=== PATIENT | female | born 1955 | race African-American/Black ===

== ENCOUNTER 2016-08-11 10:44 | Inpatient (IN) | payer OTHER ==
--- NOTE | ~2016-08-11 | IDS ---
Interim Discharge Summary [facility] [address] [place]. [address] NAME: GIOVANY MALONE : 59 STATUS : ADM IN [facility]#: [id number] AGE: 60 ADM/REG DATE : 08/11/16 MR#: [id number] REPORT SERV DATE: 08/28/16 DICTATED BY: JR. GAUTHIER WILLIAM JOHN DATE: 08/28/16 REPORT STATUS : Draft TRANSCRIBED BY: MODCecilia DATE: 08/28/16 ADMISSION DATE: 08/11/2016 DISCHARGE DATE: This discharge summary covers the time period from 08/22 through 08/28. WORKING DIAGNOSES: Include 1. Coronary artery disease, status post bypass grafting. 2. Left axillary deep vein thrombosis. 3. Acute kidney injury on chronic kidney disease with history of kidney transplant. 4. Diabetes mellitus type 2. 5. Obesity with body mass index of 33. 6. Essential hypertension. OPERATIONS, PROCEDURES, AND TREATMENTS: Include 1. Ultrasound-guided left basilic vein access with left upper extremity venogram. Ultrasound-guided access of the left axillary vein with percutaneous angioplasty of the left axillary vein, subclavian vein, and innominate vein. Attempted placement of left axillary PermCath. Placement of left upper extremity central venous catheter. Ultrasound-guided access to left internal jugular vein. Left internal jugular vein venogram. Left femoral PermCath placement done by Dr. Richardson on 08/24. 2. Daily portable chest x-rays. 3. Renal ultrasound done 08/22 which showed hydronephrosis of the transplanted kidney, slightly less than previous with abdominal fluid tracking along the nephrostomy tube course less prominent. 4. Venous Doppler ultrasound of the upper extremity done 08/26 which showed deep vein thrombosis, left axillary and proximal brachial veins. INTERIM SUMMARY: 1. The patient has been in the CVICU since I assumed care. She is being followed by Dr. Quesada of [facility]; Dr. Richardson, nephrology associates; and Dr. Velazco. The patient has been relatively hypotensive and has been on Levophed for most of the stay in the intensive care unit. She has acute kidney injury, had a temporary dialysis catheter placed in the groin after multiple attempts at placement. The patient then was converted from CRRT to hemodialysis. The viability of the grafted kidney is still in question. She is putting out some urine. The patient maintains on anti-rejection drugs, and there is consideration for a biopsy of the grafted kidney. Decision has not been made in this regard. 2. The patient was found to have a left axillary deep vein thrombosis. She was placed on heparin drip which she remains on. 3. As for the coronary artery disease, post bypass grafting, management per Thoracic Surgery. 4. As for the patient's diabetes mellitus, she was weaned off insulin drip with escalating basal prandial bolus insulin. Thoracic Surgery placed the patient back on insulin drip on 08/28. We will defer to their judgment when to re-transition off. The remainder of the patient's health problems are stable. My partner will assume care of this patient Interim Discharge Summary [address] [address] NAME: GIOVANY MALONE : 59 STATUS : ADM IN PAT#: [id number] AGE: 60 ADM/REG DATE : 08/11/16 MR#: [id number] REPORT SERV DATE: 08/28/16 DICTATED BY: JR. GAUTHIER WILLIAM JOHN DATE: 08/28/16 REPORT STATUS : Draft TRANSCRIBED BY: ABRAHAN DATE: 08/28/16 in the morning. WJF/ABRAHAN Anthony Gauthier Jr, MD / [id number]
--- NOTE | ~2016-08-11 | OP ---
Record Of Operation [facility] [address] [place]. [address] NAME: GIOVANY MALONE : 59 STATUS : ADM IN PAT#: [id number] AGE: 60 ADM/REG DATE : 08/11/16 MR#: [id number] REPORT SERV DATE: 08/24/16 DICTATED BY: MAGED RICHARDSON DATE: 08/24/16 REPORT STATUS : Draft TRANSCRIBED BY: MODL DATE: 08/24/16 DATE OF PROCEDURE: 08/23/2016 PREOPERATIVE DIAGNOSES: 1. End-stage renal disease. 2. Central venous occlusions. 3. Failed kidney transplant. 4. Phlebosclerosis. POSTOPERATIVE DIAGNOSES: 1. End-stage renal disease. 2. Central venous occlusions. 3. Failed kidney transplant. 4. Phlebosclerosis next number. PROCEDURE: 1. Ultrasound-guided access of the left basilic vein. 2. Left upper extremity venogram. 3. Ultrasound-guided access of the left axillary vein. 4. Percutaneous angioplasty of the left axillary vein, subclavian vein, and innominate vein. 5. Attempted placement of a left axillary PermCath. 6. Placement of a left upper extremity central venous catheter. 7. Ultrasound-guided access of the left internal jugular vein. 8. Left internal jugular venogram. 9. Left femoral PermCath placement. SURGEON: Maged Richardson M.D. COMPANY TANKER TRUCK DRIVER: [place]. ANESTHESIA: MAC plus local. INDICATIONS: The patient is a lady who has a known central venous stenosis or occlusion. She has renal failure with failure of her transplanted kidney. She has limited IV access as well as dialysis access options. Thus, she was consented for a PermCath placement as well as some type of longer term IV access placement. DESCRIPTION OF PROCEDURE: After informed consent was obtained, the patient was taken to the operating room and placed in the supine position on the operating table. Monitored anesthesia was administered. Her left neck and chest as well as her left upper extremity, left groin, and left thigh and right thigh were prepped and draped in the usual sterile fashion. Ultrasound-guided access was obtained of the left basilic vein. The ultrasound images were documented on the chart. I placed a micropuncture sheath and obtained a venogram of the left upper extremity that demonstrated that the left basilic vein was patent and it looked like there was a stenosis within the vein. There was collateralization to the Record Of Operation [facility] [address] [place]. [address] NAME: GIOVANY MALONE : 59 STATUS : ADM IN PAT#: [id number] AGE: 60 ADM/REG DATE : 08/11/16 MR#: [id number] REPORT SERV DATE: 08/24/16 DICTATED BY: MAGED RICHARDSON DATE: 08/24/16 REPORT STATUS : Draft TRANSCRIBED BY: ABRAHAN DATE: 08/24/16 left axillary vein. There was flow through the left subclavian and innominate veins. It looked like the SVC stent was patent but more central imaging was not well visualized. It did appear that there was some tortuosity of the left axillary and subclavian vein with several areas of stenosis within the left axillary, subclavian, and innominate veins. I placed a 6-Burkinan sheath and tried to traverse the left basilic vein stenosis. I was unsuccessful. Thus, ultrasound-guided access was obtained of the left axillary vein. The ultrasound image was documented on the chart. I passed a wire centrally. I angioplastied the left axillary vein and subclavian vein with a 6 mm balloon. I then went back and angioplastied the left axillary, subclavian, and innominate veins with an 8 mm balloon. This resolved the stenoses, as demonstrated by venogram. I then exchanged out my 6-Burkinan sheath for a 14-1/2-Burkinan peel-away sheath. I tried to pass a 50 cm PermCath over a wire into the central veins. I could not get the catheter to pass. I ballooned up aforementioned the veins again and tried to get the catheter to pass. I was unsuccessful. I placed a 16-Burkinan long sheath all the way such that the tip was in the left innominate vein. I tried to get my PermCath through this sheath but could not get it past the left innominate vein. I ended up withdrawing this sheath. I decided to instead place a central venous catheter, so that they could have IV access. I withdrew my sheath and attempted to place a 50 cm long triple-lumen PICC line as my central venous catheter. I did this so that my central venous catheter would be placed through a central vein and would be long enough to pass through any areas of stenosis. I was unable to get the catheter to pass easily. I placed a 7-Burkinan 45 cm sheath and tried to cut it so that it would be a peel-away sheath through which I could put the catheter. I had to go through a couple of sheaths to actually get something open. Ultimately, while cutting the sheath, I did make a hole inadvertently in the catheter. I therefore had to remove the sheath and exchange out my catheter over a wire for a new dual lumen PICC line. The tip terminated in the right atrium. It was sutured in place. A U-stitch was placed around the catheter also to ensure hemostasis. This portion of the case took approximately 3 hours and involved approximately 400 to 500 mL of blood loss. This was substantially more difficult than any other central line because of the complexity of her anatomy. Ultrasound-guided access was then obtained of the left internal jugular vein, so that I could place a PermCath. The wire would not pass easily. I placed a micropuncture sheath and obtained a venogram that demonstrated that the left internal jugular vein was occluded centrally. I withdrew my sheath from the left neck as well as the sheath that was in the left basilic vein. Manual pressure was used for hemostasis. I then turned my attention to the left groin. I anesthetized the left thigh and made a small skin incision. I inserted a wire through the existing Vas-Cath and removed it. I cleaned up the area and placed a peel-away sheath. I tunneled a 50 cm PermCath between the two incisions. I inserted the catheter over the wire through the peel-away sheath under fluoroscopic guidance into the IVC near the atrial caval junction. I peeled away the sheath. I confirmed that the catheter was not kinked and that it aspirated and flushed well. The left groin was closed in layers. The catheter was sutured in place, and a sterile dressing was applied. Of note, the central venous catheter was placed under fluoroscopic guidance also. The patient tolerated the procedure well without any intraprocedural complications noted. She did receive 1 unit of blood in transfusion. I informed the patient's of our intraoperative findings and the difficulty that we had. He seemed very appreciative of the efforts that we went through to see if we could preserve IV access options as well as central venous options for dialysis. Record Of Operation [facility] [address] [place]. [address] NAME: GIOVANY MALONE : 59 STATUS : ADM IN PAT#: [id number] AGE: 60 ADM/REG DATE : 08/11/16 MR#: [id number] REPORT SERV DATE: 08/24/16 DICTATED BY: MAGED RICHARDSON DATE: 08/24/16 REPORT STATUS : Draft TRANSCRIBED BY: MODCecilia DATE: 08/24/16 CITY EDITOR/ABRAHAN Maged Richardson M.D. / [id number] CC: Stefani Pena M.D.
--- NOTE | ~2016-08-11 | OP ---
Record Of Operation [facility] [address] [place]. [address] NAME: GIOVANY MALONE : 59 STATUS : DIS IN PAT#: [id number] AGE: 60 ADM/REG DATE : 08/11/16 MR#: [id number] REPORT SERV DATE: 09/17/16 DICTATED BY: MAGED RICHARDSON DATE: 09/16/16 REPORT STATUS : Draft TRANSCRIBED BY: ABRAHAN DATE: 09/16/16 DATE OF PROCEDURE: 09/14/2016 PREOPERATIVE DIAGNOSIS: Phlebosclerosis. POSTOPERATIVE DIAGNOSIS: Phlebosclerosis. PROCEDURES: 1. PermCath removal. 2. Port-A-Cath placement. SURGEON: Maged Richardson M.D. DAIRY CATTLE FARM MANAGER: Bruno Alejandra. ANESTHESIA: MAC plus local. INDICATION: The patient is a 60-year-old female who had a recent heart surgery. She had acute kidney injury following this and had a PermCath placed. Now, her renal function has improved and she is off dialysis. She needs longer term IV access, so she was consented for intervention. DESCRIPTION OF PROCEDURE: After informed consent was obtained, the patient was taken to the operating room and placed in the supine position on the operating table. Monitored anesthesia was administered. Her left upper extremity was prepped and draped in usual sterile fashion. I inserted a wire through the existing PermCath. I removed the PermCath. It was discarded. I used manual pressure at the exit site. I enlarged this exit site. I made a separate skin incision along the arm. Cautery was used to deepen the incision. I created a subcutaneous pocket. I tunneled the PermCath tubing between the incisions. I inserted the catheter into the peel-away sheath over a wire using fluoroscopic guidance. I confirmed that the tip was in the right atrium. I cut the catheter, attached it to the port, and fixated the port within the subcutaneous pocket. I aspirated and flushed the catheter. I washed out the wounds and closed them in layers. The patient tolerated the procedure well without any intraprocedural complications noted. QUALITY IMPROVEMENT ANALYST/ABRAHAN Maged Richardson M.D. / [id number] CC: Brenda Raza M.D. Record Of [address] [address] NAME: GIOVANY MALONE : 59 STATUS : DIS IN PAT#: [id number] AGE: 60 ADM/REG DATE : 08/11/16 MR#: [id number] REPORT SERV DATE: 09/17/16 DICTATED BY: MAGED RICHARDSON DATE: 09/16/16 REPORT STATUS : Draft TRANSCRIBED BY: MODL DATE: 09/16/16 Julienne Garcia M.D.
--- NOTE | ~2016-08-11 | CN ---
Consultation Report [facility] [address]. [address] NAME: GIOVANY MILTON : 59 STATUS : ADM IN PAT#: [id number] AGE: 60 ADM/REG DATE : 08/11/16 MR#: [id number] REPORT SERV DATE: 08/12/16 DICTATED BY: ALEXIS BLANCA DATE: 08/11/16 REPORT STATUS : Draft TRANSCRIBED BY: MODL DATE: 08/11/16 DATE OF CONSULTATION: 08/11/2016 HISTORY OF PRESENT ILLNESS: Ms. Milton is a 60-year-old female followed for donor renal transplant performed at [facility] in September of 2012. She presently maintains a creatinine between 1.3 and 1.8. She has had prior recurrent ESBL UTI infections and hydronephrosis of her transplant requiring percutaneous nephrostomy. This tube has been removed. She presents at this time with chest pain and shortness of breath. On 07/27/2016 she underwent cardiac cath by Dr. Dodd demonstrating multi-vessel disease which could not be stented. She was to follow up with CT Surgery in an outpatient setting but has not had an appointment made at this time. She was hypoxemic on presentation and has undergone CT scan of her chest which was noncontrasted. MEDICAL HISTORY: End-stage renal disease secondary to diabetes and hypertension. Type two diabetes mellitus, insulin dependent. donor renal transplant, [facility], 2012. Cervical stenosis with C4-C5, C5-C6 arthrodesis. Anemia, obstructive sleep apnea, subtotal parathyroidectomy, remote Vicki fundoplication, remote cholecystectomy, hyperlipidemia, remote tonsillectomy, remote ankle fracture, multivessel coronary artery disease. ALLERGIES: OXYCODONE. SOCIAL HISTORY: The patient has good family support. No use of alcohol, tobacco, or illicit drugs. MEDICATIONS: Nifedipine, omeprazole, Zofran, Ditropan, roxicodone, Paxil, prednisone, Prograf, probiotic, Ambien. FAMILY HISTORY: Positive for diabetes, hypertension. No end-stage renal disease. REVIEW OF SYSTEMS: HEENT: The patient denies any change in visual acuity, epistaxis, otic infection. PULMONARY: No shortness of breath. No cough. No hemoptysis. CARDIAC: Has had chest pain. No syncope. Intermittent lower extremity edema. GI: No nausea, vomiting, or melena. : No dysuria, gross hematuria. MUSCULOSKELETAL: Denies arthralgias except for knees and back. INTEGUMENT: No rash. No itching. Remainder of twelve point review of systems is negative. PHYSICAL EXAMINATION: Pleasant female, alert, cooperative, has Venti mask in place. VITAL SIGNS: Blood pressure 134/78, respiratory rate 20, temperature 98.2. HEENT: Eyes: No scleral icterus. Pupils equal, reactive to light. Extraocular movement Consultation Report [facility] [id number] [place]. [address] NAME: GIOVANY MILTON : 59 STATUS : ADM IN PAT#: [id number] AGE: 60 ADM/REG DATE : 08/11/16 MR#: [id number] REPORT SERV DATE: 08/12/16 DICTATED BY: ALEXIS BLANCA DATE: 08/11/16 REPORT STATUS : Draft TRANSCRIBED BY: ABRAHAN DATE: 08/11/16 intact. Nares patent. No discharge. Throat, no injection. Mucous membranes moist. NECK: No thyromegaly, masses, bruits. CHEST/LUNGS: Few late crackles posteriorly. No wheezing. No dullness to percussion. CARDIAC: Regular rate and rhythm. Questionable 1/6 systolic ejection murmur. BREASTS, PELVIC, RECTAL EXAM: Not performed. ABDOMEN: Normoactive bowel sounds. Nontender. No hepatosplenomegaly. No allograft tenderness. EXTREMITIES: No edema. No calf tenderness. DERMIS: No rash. No skin lesions. NEUROLOGIC: Cranial nerves intact. No lateralizing weakness. IMPRESSION: 1. donor renal transplant, 2012, [facility], clinically stable function. 2. Chronic kidney disease stage three, creatinine 1.73 baseline creatinine 1.3 to 1.8. 3. Shortness of breath with hypoxia, etiology under evaluation. 4. Multi-vessel coronary artery disease, not amenable to stenting and awaiting appointment with Cardiothoracic Surgery. 5. Sleep apnea, on BiPAP. 6. Type two diabetes mellitus, insulin dependent. 7. Hypertension. 8. Anemia. PLAN: 1. Labs. 2. We will follow. No change in current therapy. ANA LAURA/ABRAHAN Alexis Blanca M.D. / [id number] CC: MD Julienne Light M.D.
--- NOTE | ~2016-08-11 | OP ---
Record Of Operation [facility] [address] [place]. [address] NAME: GIOVANY MALONE : 59 STATUS : ADM IN [facility]#: [id number] AGE: 60 ADM/REG DATE : 08/11/16 MR#: [id number] REPORT SERV DATE: 09/02/16 DICTATED BY: MAGED RICHARDSON DATE: 09/02/16 REPORT STATUS : Draft TRANSCRIBED BY: MODL DATE: 09/02/16 DATE OF PROCEDURE: 09/01/2016 PREOPERATIVE DIAGNOSES: 1. End-stage renal disease. 2. Central venous stenosis. POSTOPERATIVE DIAGNOSES: 1. End-stage renal disease. 2. Central venous stenosis. PROCEDURE: PermCath removal. SURGEON: Maged Richardson M.D. AVIONICS SYSTEMS ENGINEER: None. ANESTHESIA: None. INDICATIONS: The patient is a lady who had a left common femoral vein PermCath placed. She no longer needs it as she has an axillary vein PermCath. Thus, she was consented for intervention. DESCRIPTION OF PROCEDURE: After the patient's left thigh was prepped and draped, I dissected out the cuff of the PermCath. I removed the PermCath. The patient tolerated the procedure well without any intraprocedural complications noted. TREVIN/ABRAHAN Maged Richardson M.D. / [id number] CC: Stefani Pugh M.D.
--- NOTE | ~2016-08-11 | DS ---
Discharge Summary [facility] [address] [place]. [address] NAME: GIOVANY MALONE : 59 STATUS : DIS IN PAT#: [id number] AGE: 60 ADM/REG DATE : 08/11/16 MR#: [id number] REPORT SERV DATE: 09/16/16 DICTATED BY: BRENDA RAZA DATE: 09/15/16 REPORT STATUS : Draft TRANSCRIBED BY: MODL DATE: 09/15/16 ADMISSION DATE: 08/11/2016 DISCHARGE DATE: 09/15/2016 DISCHARGE DIAGNOSES: 1. Acute hypoxic respiratory failure present on admission, recovered. The patient does not need any oxygen on discharge. 2. Status post CABG. 3. Acute kidney injury on chronic kidney disease with history of renal transplant. The patient is on immunosuppressant and she was on dialysis through this hospital stay after the surgery, now she is off dialysis, and her kidney function is improving gradually. 4. Deep vein thrombosis on the left axillary area related with vascular procedure, but the patient is remaining on anticoagulation since she still has a new Port-A-Cath on the left axillary area. 5. Diabetes mellitus. Her blood sugar is going down, so her insulin regimen is decreased. 6. Morbid obesity. BMI 48.2. 7. Anemia, acute on chronic. No evidence of bleeding, status post two units of transfusion. 8. Hypertension. LIBRARY INFORMATION TECHNICIAN: 1. Dr. Quesada. 2. Dr. Velazco. 3. Dr. Richardson. 4. [facility]. PROCEDURES: 1. Urgent CABG x4. 2. Dialysis during this hospitalization after the operation. 3. Multiple attempts of dialysis catheter insertion and finally, she did have PermCath removal on 09/14/2016 from the left axillary area and she has a new axillary Port-A- Cath insertion for blood draw for her Coumadin check. HISTORY OF PRESENT ILLNESS: This is a 60-year-old female patient, who had multiple medical problems, came to the hospital with shortness of breath. Please see dictated H and P. HOSPITAL COURSE: Please see dictated interim discharge summaries and discharge summary from Dr. Gauthier and by myself, Dr. Raza. The patient has recovered very well from the CABG. It was a very slow process including multiple times of dialysis. Overall, she had improvement and the last thing that was the reason for her to stay in the hospital longer than usual was getting this line changed and also waiting for insurance approval for her rehab status. Discharge Summary [address] [place]. [address] NAME: GIOVANY MALONE : 59 STATUS : DIS IN PAT#: [id number] AGE: 60 ADM/REG DATE : 08/11/16 MR#: [id number] REPORT SERV DATE: 09/16/16 DICTATED BY: BRENDA RAZA DATE: 09/15/16 REPORT STATUS : Draft TRANSCRIBED BY: MODCecilia DATE: 09/15/16 Dr. Richardson did remove her left axillary PermCath catheter and put a new Port-A-Cath catheter on 09/14/2016. Her insurance denied her [facility] stay and we looked for other facility and the patient has been decided [facility] Along with that, her kidney function is much improved. The patient will be discharged to [facility] for rehab. FINAL DISCHARGE MEDICATIONS: 1. Aspirin 81 mg once a day. 2. Lipitor 40 mg once at nighttime. 3. Plavix 75 mg once a day. 4. Bentyl 10 mg before meals. 5. Colace 100 once a day. 6. Preparation-H three times a day. 7. Toujeo was decreased to 20 units at nighttime. 8. Singulair 10 mg once a day. 9. Melatonin 3 mg once at nighttime as needed. 10.Bactroban for the incision site. 11.Mycostatin twice a day powder. 12.Paxil 20 mg once at nighttime. 13.Prograf dose changed to 2 mg twice a day by Nephrology from this hospitalization. 14.Coumadin is 5 mg once a day and prednisone is 20 mg once a day, which was changed by Nephrology during the hospitalization. 15.Albuterol as needed. 16.Advair twice a day. 17.Humalog is decreased to 4 units each meal. 18.Nifedipine and Phenergan are discontinued. 19.Coreg 6.25 mg twice a day. 20.Roxicodone is discontinued. 21.Imdur was discontinued. 22.Hydrocodone 7.5 as a pain medicine. 23.Torsemide 20 mg Sunday, Sunday, and Sunday. TIME SPENT: More than 30 minutes in discharge and coordination. DICTATED BY: Stefani Pugh/ABRAHAN : Brenda Raza M.D. / [id number] CC: Discharge Summary [address] [address] NAME: GIOVANY MALONE : 59 STATUS : DIS IN PAT#: [id number] AGE: 60 ADM/REG DATE : 08/11/16 MR#: [id number] REPORT SERV DATE: 09/16/16 DICTATED BY: BRENDA RAZA DATE: 09/15/16 REPORT STATUS : Draft TRANSCRIBED BY: ABRAHAN DATE: 09/15/16 Stefani Pugh M.D.
--- NOTE | ~2016-08-11 | OP ---
Record Of Operation [facility] [address] [place]. [address] NAME: GIOVANY MALONE : 59 STATUS : ADM IN PAT#: [id number] AGE: 60 ADM/REG DATE : 08/11/16 MR#: [id number] REPORT SERV DATE: 08/14/16 DICTATED BY: JUAN F VELAZCO DATE: 08/14/16 REPORT STATUS : Draft TRANSCRIBED BY: MODL DATE: 08/14/16 DATE OF PROCEDURE: 08/14/2016 PREOPERATIVE DIAGNOSES: 1. Coronary artery disease with angina. 2. Type 2 insulin-dependent diabetes mellitus. 3. Chronic kidney disease stage 3, status post cadaveric renal transplant for end-stage renal disease. 4. Superior vena caval stenosis, status post stenting. 5. Morbid obesity (BMI greater than 35). 6. Chronic drug-induced immunosuppression. 7. Chronic anemia of end-stage renal disease. 8. Hypertension. 9. Mixed hyperlipidemia. PROCEDURE PERFORMED: 1. Urgent coronary artery bypass grafting x4, left internal mammary artery placed to left anterior descending, reverse saphenous vein graft placed to the first diagonal, reverse saphenous vein graft placed to the third obtuse marginal, reverse saphenous vein graft placed to the posterior descending artery. 2. Endoscopic vein harvest, saphenous vein from right leg. 3. Transesophageal echocardiography. SURGEON: Juan F Velazco M.D. ASSISTANTS: Reilly Gunn and Perez Roman. ANESTHESIA: General with Dr. Eldridge. JET INSPECTOR: Gold Dodd M.D. PRIMARY CARE: Patricia Arana. SKI LIFT ATTENDANT: Gatito Lemus M.D. INDICATIONS: This is a 60-year-old obese female with a history of coronary artery disease in the past and has had previous stenting of the RCA in 2009. She has been having increasing episodes of chest discomfort with fatigue and dyspnea on exertion. She has remote history of cadaveric renal transplant four years ago. She has had multiple other medical problems including chronic anemia and bacteremia in the past. She is morbidly obese. She underwent a cardiac catheterization and is admitted to the hospital. We were asked to see the patient for possible urgent revascularization secondary to severe disease and ongoing symptoms. We discussed this operation with the patient and her family and after discussing operations, indication, risks, they wished to proceed. STS predicted risk of mortality is less than 2% and risk of morbidity mortality is less than 15%. This was shared with the family. Record Of Operation [facility] [address] [place]. [address] NAME: GIOVANY MALONE : 59 STATUS : ADM IN PAT#: [id number] AGE: 60 ADM/REG DATE : 08/11/16 MR#: [id number] REPORT SERV DATE: 08/14/16 DICTATED BY: JUAN F VELAZCO DATE: 08/14/16 REPORT STATUS : Draft TRANSCRIBED BY: MODCecilia DATE: 08/14/16 FINDINGS AT OPERATION: 1. Cross-clamp 57 minutes. Total pump time 70 minutes. 2. The LAD was 1.75 mm heavily diseased vessel. A 2.5 mm GOLDBERG was anastomosed to it with good runoff. 3. The first diagonal was 1.5 mm moderately diseased. A 3.5 mm RSVG was anastomosed to it with good runoff. 4. The third obtuse marginal was 1.75 mm and heavily diseased. A 3.5 mm RSVG was anastomosed to it with good runoff. 5. The posterior descending artery was 1.5 mm and mildly diseased. A 3.5 mm RSVG was anastomosed to it with fair runoff. This was a small target. 6. The vein quality was good and all grafts had good Doppler signal at the end of the case. 7. Transesophageal echocardiography demonstrated good ventricular function. There was mild aortic insufficiency and no significant mitral valve insufficiency. PATHOLOGIC SPECIMENS: None. DESCRIPTION OF PROCEDURE: The patient was brought to the operating suite. General anesthesia was induced, airway secured with an endotracheal tube. Lines were secured by Anesthesia. Reynolds catheter was placed. The patient's chest, abdomen, groin, and legs were prepped with Hibiclens and ChloraPrep and draped with Ioban sterile sheets. RADHA probe was placed by Anesthesia and examination carried out by Dr. Eldridge in my attendance as discussed above. The saphenous vein was harvested from the right leg using endoscopic technique. Briefly, the vein was cut directly down upon through a 2 cm incision and placed at the medial aspect of the right knee. Then, using VasoView trocars, the vessel was dissected from the surrounding subcutaneous tissue and fat. The side branches were then identified, ligated and divided with cautery. Once adequate length of the vein had been dissected, a counter incision was made up in the groin and in the lower leg. The vein was ligated and divided and then brought up through the knee incision. The vein quality was good and the leg was made hemostatic and closed in layers with absorbable suture. Skin was closed in subcuticular fashion. Next, a midline sternal incision was made and the sternum opened with a saw. The left hemithorax was elevated and the endothoracic fascia was incised. The side branches of the LUCHO were clipped and divided. Once the LUCHO was completely dissected, the patient was anticoagulated with heparin and chest tube placed in the left pleural cavity. The LUCHO was clipped and divided distally. There was good flow through the LUCHO and its pedicle was infiltrated with papaverine. Next, the Rubin retractor was placed in the pericardium over to the innominate vein and diaphragm, where it was T'd and tacked to the side of the chest wall. Cannulation pursestring sutures were placed and cannulation was carried out in routine manner. A retrograde cardioplegia cannula was placed in the coronary sinus. Record Of Operation [facility] [address] [facility] [place]. [address] NAME: GIOVANY MALONE : 59 STATUS : ADM IN PAT#: [id number] AGE: 60 ADM/REG DATE : 08/11/16 MR#: [id number] REPORT SERV DATE: 08/14/16 DICTATED BY: JUAN F VELAZCO DATE: 08/14/16 REPORT STATUS : Draft TRANSCRIBED BY: MODL DATE: 08/14/16 When all was in readiness, the patient was placed on cardiopulmonary bypass. Distal targets were then marked out on the heart as described in the findings. Then, the aorta was cross- clamped. Initial dose of cold blood cardioplegia solution was given in a combination of antegrade and retrograde fashion, then in a retrograde manner following proximal anastomoses. Following the first dose of cardioplegia, the heart was positioned for the PDA graft. Arteriotomy was made. The vein graft was trimmed and anastomosed to it with 7-0 Prolene. The vein graft was measured to the ascending aorta where it was divided. We then positioned the heart for the obtuse marginal graft. Another arteriotomy was made. The vein graft trimmed and anastomosed to this vessel with 7-0 Prolene. This vein graft was measured back to the left side of the ascending aorta where it was divided. Next, the proximal ends of the two vein grafts were anastomosed to 5 mm punch aortotomy with 6-0 Prolene. Another dose of cardioplegia was given. We positioned the heart for the diagonal graft. Arteriotomy was made. The vein graft trimmed and anastomosed to it with 7-0 Prolene. This vein graft was measured back to the left side of the ascending aorta where it was divided and later anastomosed to a 4.5 mm aortotomy with a running suture of 6-0 Prolene. We then positioned the heart for the LAD graft. Arteriotomy was made in the mid LAD. The LUCHO was brought out of the left chest through a notch in pericardium over the pulmonary artery. The LUCHO was opened and anastomosed to the LAD with a running suture of 8-0 Prolene. The endothoracic fascia was tacked to the epicardium. The patient was placed in Trendelenburg and a final dose of warm blood cardioplegia given in a retrograde fashion. Ventricular and atrial pacing wires were placed. Following the last dose of cardioplegia and deairing of the aorta, the aortic cross-clamp was removed. The distal and proximal anastomoses were inspected and made hemostatic. Doppler demonstrated good flow through the grafts. The heart was paced in AV sequential fashion at a rate of 80. Ventilation was begun. When the heart demonstrated good contractility, it was allowed to fill and eject. When deairing was completed, the patient was taken out of Trendelenburg. The ascending aortic vent was removed and these pursestring sutures were tied and reinforced. The patient was then weaned from cardiopulmonary bypass with low-dose inotropic support. The venous cannula was removed and these pursestring sutures tied. RADHA examination demonstrated good ventricular function with no significant valvular pathology. Protamine was administered by Anesthesia and following a period of hemodynamic stability, the aortic cannula was removed and these pursestring sutures were tied and reinforced. The patient continued to do well and chest irrigated copiously with saline. Meticulous hemostasis was obtained. Hemasorb was placed along the cut edge of the sternum. Once hemostasis was assured, the pericardium was draped over the anterior surface of the heart and tacked into position. Doppler demonstrated good flow through the grafts following protamine administration. Then, chest tubes were placed and sternum reapproximated with eight sternal wires. The clavipectoral fascia and linea alba were closed with #1 Stratafix. The subcutaneous tissue was closed with Stratafix and skin closed with subcuticular fashion. Record Of Operation [facility] [address] [place]. [address] NAME: GIOVANY MALONE : 59 STATUS : ADM IN [facility]#: [id number] AGE: 60 ADM/REG DATE : 08/11/16 MR#: [id number] REPORT SERV DATE: 08/14/16 DICTATED BY: JUAN F VELAZCO DATE: 08/14/16 REPORT STATUS : Draft TRANSCRIBED BY: ABRAHAN DATE: 08/14/16 The patient tolerated the procedure well. There were no complications. Sponge and needle counts were correct. DISPOSITION: The patient left intubated, sedated, and transported to the intensive care unit in stable condition. PATRICE/ABRAHAN Juan F Velazco M.D. / [id number] CC: MD Gatito Light M.D. Van Stephen Monroe Jr., M.D.
--- NOTE | ~2016-08-11 | OP ---
Record Of Operation [facility] [address] [place]. [address] NAME: GIOVANY MALONE : 59 STATUS : ADM IN PAT#: [id number] AGE: 60 ADM/REG DATE : 08/11/16 MR#: [id number] REPORT SERV DATE: 08/17/16 DICTATED BY: MAGED RICHARDSON DATE: 08/16/16 REPORT STATUS : Draft TRANSCRIBED BY: MODCecilia DATE: 08/16/16 DATE OF PROCEDURE: 08/16/2016 PREOPERATIVE DIAGNOSIS: Acute kidney injury. POSTOPERATIVE DIAGNOSIS: Acute kidney injury. PROCEDURE: Left femoral Vas-Cath. SURGEON: Maged Richardson M.D. ANESTHESIA: Local. INDICATIONS: The patient is a 60-year-old morbidly obese female with a history of chronic kidney disease, who has actually had kidney transplant in the past. She recently had cardiac surgery and needs continuous dialysis. I was asked to place a Vas-Cath. Risks, benefits, and alternatives were discussed with the patient. She agreed to proceed. DESCRIPTION OF PROCEDURE: After informed consent was obtained, the patient's neck was examined. The ultrasound demonstrated an occlusion of the right internal jugular vein. The left internal jugular vein looked diminutive. The left common femoral vein was patent and large. Thus, the left groin was prepped and draped in usual sterile fashion. Ultrasound- guided access was obtained of the left femoral vein. The ultrasound image was documented on the chart. I passed a wire centrally. I made a small skin incision. I dilated the tract and placed a 20-cm Vas-Cath. It was aspirated and flushed. It was sutured in place. A sterile dressing was applied. The patient tolerated the procedure well without any intraprocedural complications noted. OUTSIDE MACHINIST APPRENTICE/ABRAHAN Maged Richardson M.D. / [id number] CC: Stefani Pugh M.D.
--- NOTE | ~2016-08-11 | DS ---
Discharge Summary [facility] [address] [place]. [address] NAME: GIOVANY MALONE : 59 STATUS : ADM IN PAT#: [id number] AGE: 60 ADM/REG DATE : 08/11/16 MR#: [id number] REPORT SERV DATE: 09/11/16 DICTATED BY: JR. GAUTHIER WILLIAM JOHN DATE: 09/10/16 REPORT STATUS : Draft TRANSCRIBED BY: MODL DATE: 09/10/16 ADMISSION DATE: 08/11/2016 DISCHARGE DATE: ANTICIPATED DATE OF DISCHARGE: 09/11/2016. DISCHARGE DIAGNOSES: Include: 1. Multivessel coronary artery disease status post bypass grafting. 2. Tnzwz-fd-kthbuzt anemia. 3. Acute kidney injury with chronic kidney disease and a history of renal transplantation. 4. Diabetes mellitus type 2. 5. Hypertension. 6. Obesity with body mass index of 48.2. 7. Left axillary vein deep vein thrombosis with left arm swelling. 8. Chronic right chest pain since bypass grafting. 9. Intertrigo. OPERATIONS/PROCEDURES AND TREATMENTS: 1. Chest x-ray done 08/11/2016, which showed mild central venous congestion. 2. CT of the chest done 08/11/2016, which showed mild interstitial edema with minimal bilateral pleural effusions and bibasilar atelectasis without lung mass or adenopathy. 3. PA and lateral chest x-ray done 08/13/2016, which showed no acute cardiopulmonary process. 4. Urgent coronary artery bypass graft x4 with left internal mammary to left anterior descending, saphenous vein graft to diagonal one, saphenous vein graft to obtuse marginal, saphenous vein graft to posterior descending artery, done 08/14/[address] Velazco. 5. Left femoral Vas-Cath placement by Dr. Richardson on 08/16/2016. 6. Multiple subsequent chest x-rays. 7. Renal ultrasound done 08/22/2016, which showed hydronephrosis of the transplanted kidney, slightly less previous with fluid tracking along the nephrostomy tube, but less than previous. 8. Left upper extremity venous Doppler ultrasound done 08/26/2016, which showed deep vein thrombosis, left axillary and proximal brachial veins. 9. Venous Doppler ultrasound of the left upper extremity done 09/05/2016, which showed chronic obstructive thrombus, including occluding the distal left subclavian vein and left axillary vein. 10.Central line placement x2. 11.Placement of left axillary vein PermCath by Dr. Richardson on 09/01/2016. 12.PermCath removal by Dr. Richardson on 09/01/2016. 13.Transfusion 2 units of packed red blood cells on 09/10/2016. CONSULTING PHYSICIANS: Include Dr. Richardson of Vascular Surgery, Dr. Amor of Nephrology, Dr. Quesada of Cardiology, Dr. Velazco of Cardiovascular-Thoracic Surgery. ANTICIPATED DISCHARGE MEDICATIONS: Include: Discharge Summary [address] [address] NAME: GIOVANY MALONE : 59 STATUS : ADM IN PAT#: [id number] AGE: 60 ADM/REG DATE : 08/11/16 MR#: [id number] REPORT SERV DATE: 09/11/16 DICTATED BY: JR. GAUTHIER WILLIAM JOHN DATE: 09/10/16 REPORT STATUS : Draft TRANSCRIBED BY: ABRAHAN DATE: 09/10/16 1. Aspirin 81 mg orally daily. 2. Lipitor 40 mg orally daily. 3. Plavix 75 mg orally daily. 4. Bentyl 10 mg before meals. 5. Colace 100 mg orally twice a day. 6. Sliding scale insulin, NovoLog insulin level 2. 7. Premeal NovoLog insulin, 10 units before meals. 8. Singulair 10 mg orally daily. 9. Mupirocin to the sternal incision every eight hours. 10.Nystatin to inframammary folds twice a day. 11.Paxil 20 mg orally daily. 12.MiraLAX one packet daily. 13.Senna two tablets twice a day. 14.Prograf 2 mg orally twice a day. 15.Zinc 220 mg daily. 16.Prednisone 20 mg orally daily. 17.Albuterol every four hours while awake. 18.Dulera 200/5 two puffs twice a day. 19.Levemir insulin 30 units at bedtime. 20.Tylenol 650 mg every four hours as needed. 21.Dulcolax 10 mg suppository as needed. 22.Valium 2.5 mg every six hours as needed. 23.Flavoxate 100 mg every eight hours as needed. 24.Simethicone one to two tablets every six hours as needed. 25.Clonidine 0.1 mg every six hours as needed. 26.Albuterol 3 mL inhaled every two hours as needed. 27.Coumadin 6 mg orally daily. 28.[place] 7.5/325 every six hours as needed. HOSPITAL COURSE: The patient is a 60-year-old female with very complex medical history, who presented to the emergency room on 08/11/2016 with complaint of shortness of breath and chest discomfort. The patient reported that one month prior she developed progressive fatigue, shortness of breath, occasional nausea. She was divided by primary transitions manager, who recommended further cardiac workup, including a multigated PET myocardial stress test and left heart catheterization. The patient was found to have multivessel coronary artery disease, not amenable to stenting and was to be evaluated as an outpatient for elective coronary artery bypass graft by Dr. Vealzco. She apparently was unable to coordinate the appointment with Dr. Velazco. Continued to have worsening fatigue, shortness of breath, and chest pain and came to the emergency room. Please see Dr. Braswell's excellent admission history and physical for further details. Regarding the patient's multivessel coronary artery disease, she was seen and evaluated by Dr. Velazco and underwent coronary artery bypass graft as above. Postop course was very stormy, mostly related to acute kidney injury to a transplanted kidney as well as vascular access issues. Regarding the acute kidney injury on chronic kidney disease. On admission, the patient's Discharge Summary [address] [address] NAME: GIOVANY MALONE : 59 STATUS : ADM IN [facility]#: [id number] AGE: 60 ADM/REG DATE : 08/11/16 MR#: [id number] REPORT SERV DATE: 09/11/16 DICTATED BY: JR. GAUTHIER WILLIAM JOHN DATE: 09/10/16 REPORT STATUS : Draft TRANSCRIBED BY: MODL DATE: 09/10/16 BUN was 29 and creatinine was 1.3, which is near her baseline. After the patient's coronary artery bypass graft, her kidney function declined and she was actually needed several episodes of hemodialysis. She was followed throughout the hospital stay by Nephrology. The patient's PermCath had issues in the finding of left axillary vein thrombosis. She had multiple accesses placed and her PermCath removed. Eventually, she has an axillary dialysis port. She has been observed off dialysis for up to one week without the need for dialysis. Her kidney function is very slowly improving. Urine output is reasonable. She is making urine. Dialysis feels her renal function can continued to be monitored in rehab. The patient continues on her anti-rejection medications. Regarding the patient's thrombosis, she was on a heparin drip for an extended period of time. Eventually, she was converted to Coumadin. She became therapeutic on 09/10/2016 and her heparin drip was stopped. Regarding her diabetes mellitus type 2, the patient's sugar control has been quite excellent on the above regimen. Regarding her bamwc-mg-lazoavc anemia, she did require 2 units of packed red blood cells. There was no evidence of bleeding. Plan is for the patient to be discharged to [facility] on 09/11/2016 if okay with Nephrology. This discharge took 45 minutes for patient encounter, coordination of care, and documentation. For discharge exam and laboratory, please see daily progress note. DISCHARGE DIET: Renal diet. DISCHARGE ACTIVITY: As tolerated. DICTATED BY: Anthony Gauthier Jr, MD WJF/MODL Anthony Gauthier Jr, MD / [id number] CC: Anthony Gauthier Jr, MD Ann H. Rybolt, M.D.
--- NOTE | ~2016-08-11 | HP ---
History And Physical [facility] [address] [place]. [address] NAME: GIOVANY MALONE : 59 STATUS : ADM IN PAT#: [id number] AGE: 60 ADM/REG DATE : 08/11/16 MR#: [id number] REPORT SERV DATE: 08/12/16 DICTATED BY: LUCIUS BOOTHE DATE: 08/11/16 REPORT STATUS : Draft TRANSCRIBED BY: ABRAHAN DATE: 08/11/16 DATE OF ADMISSION: 08/11/2016 CHIEF COMPLAINT: Shortness of breath and chest discomfort. HISTORY OF PRESENT ILLNESS: This is a 60-year-old, female with medical history significant for coronary artery disease, history of renal transplant on chronic prednisone and tacrolimus, insulin treated diabetes mellitus type 2 who presented to the hospital to the emergency room with complaints of worsening shortness of breath and chest pressure. The patient reported that about a month ago she noticed that she developed progressive worsening fatigue with associated shortness of breath on exertion and occasional nausea. She was evaluated by her primary supervisor tile and mottle who at that time recommended further cardiac workup including a multi-gated PET myocardial stress test and a left cardiac catheterization. Per patient's reports, the patient said she was diagnosed with multi- vessel disease which was not amenable to coronary stenting. She reported her primary supervisor tile and mottle told that she will be evaluated for an elective coronary artery bypass surgery by Dr. Velazco as an outpatient. Since the last evaluation with her primary supervisor tile and mottle on 08/04/2016, the patient reported that she has tried multiple times to get an appointment with Dr. Velazco but has been unsuccessful. The patient also reported that she continued to have worsening generalized fatigue, shortness of breath, and chest discomfort. She denies any actual chest pain. She reports that the shortness of breath are caused both at rest and exertion. She reports associated occasional cough which is productive of scanty yellowish sputum. She denies any fever. She denies any chills. She denies history of contact with any patient with acute febrile illness or cough. She also denies any history of recent travel, prolonged immobilization or recent surgery. Although, she reported some nausea, she denies any vomiting, diarrhea, or constipation. In the ER, the patient was noted to be having significant hypoxia saturating in the mid 80s. She was placed on 4 L of oxygen, saturation improved to 93%. An ABG was done that shows a PaO2 of 59, pH 7.36, PaCO2 of 31. An assessment of hypoxia was made in the ER. The Hospitalist Service was contacted to admit the patient for further workup of definitive etiology of the patient's hypoxia. PAST MEDICAL HISTORY: 1. Coronary artery disease with multi-vessel occlusive disease. 2. Insulin treated diabetes mellitus. 3. History of renal transplant on chronic prednisone and tacrolimus. 4. Sleep apnea on BiPAP at home. 5. Morbid obesity. 6. History of Clostridium difficile colitis. 7. Hypertension. 8. History of chronic kidney disease stage 3. 9. Dyslipidemia. 10.History of recurrent urinary tract infection. 11.History of hydronephrosis with prior history of nephrostomy tube. History And Physical [address] [address] NAME: GIOVANY MALONE : 59 STATUS : ADM IN [facility]#: [id number] AGE: 60 ADM/REG DATE : 08/11/16 MR#: [id number] REPORT SERV DATE: 08/12/16 DICTATED BY: LUCIUS BOOTHE DATE: 08/11/16 REPORT STATUS : Draft TRANSCRIBED BY: ABRAHAN DATE: 08/11/16 PAST SURGICAL HISTORY: 1. History of renal transplant. 2. History of subtotal thyroidectomy. 3. History of tonsillectomy. FAMILY HISTORY: Mother of cerebrovascular accident disease, father is still alive, doing well. She endorsed history of diabetes, hypertension, and coronary artery disease in her siblings. SOCIAL HISTORY: She denies smoking cigarettes, drinking alcohol, or illicit drug use. HOME MEDICATIONS: 1. Toujeo SoloSTAR 300 units per meal insulin pen 30 units subcu at bedtime. 2. Humalog 3 meals pen injection 10 units subcu before meals. 3. Paxil 20 mg p.o. at bedtime. 4. Nifedipine 30 mg p.o. at bedtime. 5. Nifedipine 60 mg XL p.o. in the morning. 6. Tacrolimus 4 mg p.o. b.i.d. 7. Prednisone 10 mg p.o. at bedtime. 8. Singulair 10 mg p.o. at bedtime. 9. Advair 250/50 one puff inhaler b.i.d. 10.Aspirin 325 mg p.o. daily. 11.Phenazopyridine two tabs p.o. t.i.d./p.r.n. for painful urination. 12.Coreg 6.25 mg p.o. b.i.d. 13.Dicyclomine 10 mg p.o. before meal. 14.Famotidine 20 mg p.o. daily. 15.Chesaning 5/325 one tablet p.o. every 6 hours p.r.n. 16.Melatonin 3 mg p.o. at bedtime p.r.n. 17.Oxycodone 5 mg p.o. every 4 hours/p.r.n. 18.Promethazine 25 mg p.o. every 6 hours p.r.n. 19.Imdur 60 mg p.o. b.i.d. ALLERGY HISTORY: Levofloxacin reacts by rash. REVIEW OF SYSTEMS: A 12-point review of systems performed, positive finding as mentioned in the HPI. All other systems reviewed essentially negative. PHYSICAL EXAMINATION: VITAL SIGNS: Vitals on presentation; blood pressure 132/89, temperature 97.3, pulse 75 beats per minute, saturating 94% on 4 L of oxygen. GENERAL: A mild acute respiratory distress but able to speak in full sentences. Noted to use some accessory muscles of respiration. HEENT: Pupils are equal, round, and reactive. Extraocular muscle intact. Oral mucosa moist. Not pale. Anicteric. CHEST: Nontender, equally symmetric. History And Physical [address] [address] NAME: GIOVANY MALONE : 59 STATUS : ADM IN [facility]#: [id number] AGE: 60 ADM/REG DATE : 08/11/16 MR#: [id number] REPORT SERV DATE: 08/12/16 DICTATED BY: LUCIUS BOOTHE DATE: 08/11/16 REPORT STATUS : Draft TRANSCRIBED BY: ABRAHAN DATE: 08/11/16 LUNGS: Clear to auscultation bilaterally. No wheezes. No rhonchi. No crackles. CARDIOVASCULAR: Regular rate and rhythm. S1-S2. No murmurs, no rubs, no gallops. ABDOMEN: Bowel sounds normoactive. Soft, mild epigastric tenderness with no rebound, no guarding. No palpably enlarged organomegaly. EXTREMITIES: Lower extremities, no pedal edema. NEURO: Cranial nerve 2 through 12 intact. Strength 5/5 in all extremities. LABORATORY DATA: WBC 11.8, hemoglobin 10.1, hematocrit 31.0, platelets 294, INR 1.1. Chemistry; sodium 142, potassium 4.7, chloride 113, bicarb 22, BUN 29, creatinine 1.73, glucose 139, calcium 7.6, mag 1.9, phosphorus 4.5, total protein 6.9, albumin 2.9, alkaline phosphatase 145, ALT 31, AST 28, LDH 221, lipase 92, troponin less than 0.02. TSH 0.9. Free T4. 1.22. BNP 185. Chest x-ray, impression: Mild central venous congestion. CT chest without contrast impression: 1. Mild interstitial edema with minimal bilateral pleural effusion and bibasilar atelectasis. 2. No lung masses or adenopathy noted. ASSESSMENT AND PLAN: 1. Hypoxia. 2. Mild pulmonary vascular congestion. 3. Coronary artery disease, with report of occlusive multi-vessel disease not amenable to coronary stenting requiring bypass surgery. 4. History of renal transplant. Creatinine of 1.7 (last known baseline 2.1). 5. Insulin treated diabetes mellitus. 6. Hypertension. 7. Obstructive sleep apnea on BiPAP machine at home. 8. Morbid obesity. PLAN: 1. Given the patient's presentation of hypoxia with presence of pulmonary vascular congestion, I will start the patient on gentle IV diuresis, although patient does not appear to be volume overloaded on physical exam, I doubt if this has anything to do with congestive heart failure. The patient's creatinine is also 1.7 which is better than patient's last known baseline. I will obtain an echocardiogram to further evaluate the patient's EF. Per patient, the patient is known to have multivessel occlusive disease, and will need a bypass surgery. Dr. Velazco was consulted as an outpatient but yet to evaluate the patient. I will consult the patient's primary supervisor tile and mottle to further help plan the patient's need for coronary artery bypass surgery. Also at this time, the patient's PE is of less concern at this time as presentable etiology for patient's presentation as the patient is not tachycardic on exam. If the patient's hypoxia persist despite IV diuresis, I will consider doing a V/Q scan to definitively rule out PE as a possible etiology of hypoxia. Other infectious etiology like pneumonia is of less concern at this point, as the patient has no fever, no pneumonic note CT scan findings of consolidation or infiltrative changes History And Physical [address] [address] NAME: GIOVANY MALONE : 59 STATUS : ADM IN PAT#: [id number] AGE: 60 ADM/REG DATE : 08/11/16 MR#: [id number] REPORT SERV DATE: 08/12/16 DICTATED BY: LUCIUS BOOTHE DATE: 08/11/16 REPORT STATUS : Draft TRANSCRIBED BY: ABRAHAN DATE: 08/11/16 noted. Also, the patient's procalcitonin is less than 0.5, which makes bacterial pneumonia less likely. Although patient is on chronic steroid, Pneumocystis carinii pneumonia is also less likely in this patient as the patient's LDH is less than 250. At this point, I will resume patient's home medications. 2. DVT prophylaxis. Heparin. 3. Code status. Full code. JESSIEO/ABRAHAN Lucius Boothe MD / [id number] CC: MD Julienne Light M.D.
--- NOTE | ~2016-08-11 | IDS ---
Interim Discharge Summary [facility] [address] [place]. [address] NAME: GIOVANY MALONE : 59 STATUS : ADM IN PAT#: [id number] AGE: 60 ADM/REG DATE : 08/11/16 MR#: [id number] REPORT SERV DATE: 09/04/16 DICTATED BY: BRENDA RAZA DATE: 09/04/16 REPORT STATUS : Draft TRANSCRIBED BY: MODL DATE: 09/04/16 ADMISSION DATE: 08/11/2016 DISCHARGE DATE: 09/04/2016 This interim discharge summary is time period from 08/29/2016 to 09/04/2016. PROBLEM LIST: 1. Status post coronary artery bypass graft, improving and stable. 2. Acute kidney injury on chronic kidney disease with a history of kidney transplant. The patient had intermittent dialysis. The last dialysis was 08/25/2016, and had another dialysis 09/01/2016. She is on the torsemide every other day with a stable creatinine level. Outcomes Analyst's plan was watching her urine output and kidney function and possible discharge without the dialysis. 3. Diabetes type 2. 4. Obesity. 5. Hypertension. 6. Left axilla deep vein thrombosis which was identified on the last week, and when Dr. Richardson was working on the PermCath. At that time, he did some angioplasty, but had to put the PermCath in the left groin. She did have the PermCath, and she was on the heparin for the left axillary deep vein thrombosis. On 08/31/2016, she did have a PermCath change from left groin to left upper chest with Dr. Richardson, and then at that time, Dr. Richardson recommended no anticoagulation since her deep vein thrombosis was related to his vascular work, and she will need a PermCath on the left side arm, and she did have the left PermCath changed to left upper arm and did have dialysis one time on Sunday with that catheter, which was working fine. However, she developed worsening edema and pain today, so she is back on heparin drip. Vascular re-consult was done. At that point, they recommended to heparinize the patient at this point. OPERATIONS: For the last 7 days, the patient had a PermCath change with Dr. Richardson. HISTORY OF PRESENT ILLNESS: This is a 60-year-old female patient, initially came to the hospital with hypoxia with finding of heart failure. Please see dictated H and P. HOSPITAL COURSE: Please see dictated interim discharge summary done by myself and Dr. Gauthier. She has been stabilized in CVICU. The patient was able to be off the vasopressors. She was transferred up to [address] [place] [address] after she was stabilized. At that time, she was on heparin drip for newly found left axillary deep vein thrombosis when Dr. Richardson was trying to get a PermCath in the left side. The plan for the PermCath was made with [facility] and Dr. Richardson to change to left arm from the left groin and ran one more dialysis on Sunday with that new catheter. If she is stabilized okay, then initial plan was going to [facility] for rehab. She did fine with the catheter change, and she did fine with dialysis on Sunday. During the weekend, she has been stable; however, today, the patient has been complaining of chest tightness and her left arm is much more swollen with cutaneous Interim Discharge Summary [address] [address] NAME: GIOVANY MALONE : 59 STATUS : ADM IN PAT#: [id number] AGE: 60 ADM/REG DATE : 08/11/16 MR#: [id number] REPORT SERV DATE: 09/04/16 DICTATED BY: BRENDA RAZA DATE: 09/04/16 REPORT STATUS : Draft TRANSCRIBED BY: MODCecilia DATE: 09/04/16 vein distention and swelling is more significant today. Vascular Surgery was re-consulted, and the patient is put on the heparin drip at this point and did some other workup for the chest pain. X-rays an EKG and troponins are pretty much negative. Concerned for the DVT getting progressive with catheter; however, it is a very difficult situation that she will need a catheter in place for the near future. She will need a dialysis because she does not have any other access on the right side. At this point, it is not decided whether we are going to take the catheter out or change to groin area. The patient was made a decision for heparinizing at this point only. Otherwise, she has been very stable until this problem got more prominent today. [facility] is still trying to get an approval from her insurance company; however, we have not heard anything yet, and since this DVT issue has been more prominent and we need to have a little more plan on that, probably she will need anticoagulation orally. VERONICA/ABRAHAN Brenda Raza M.D. / [id number] CC: Stefani Pugh M.D.
--- NOTE | ~2016-08-11 | CN ---
Consultation Report [address] [place]. [address] NAME: GIOVANY MILTON : 59 STATUS : ADM IN PAT#: [id number] AGE: 60 ADM/REG DATE : 08/11/16 MR#: [id number] REPORT SERV DATE: 08/12/16 DICTATED BY: ERIK QUESADA DATE: 08/12/16 REPORT STATUS : Draft TRANSCRIBED BY: MODL DATE: 08/12/16 CARDIOLOGY CONSULTATION DATE OF CONSULTATION: 08/12/2016 REASON FOR CONSULTATION: Chest pain. HISTORY OF PRESENT ILLNESS: Ms. Milton is a 60-year-old female, known to our service followed by my partner, Dr. Jared Dodd, who has a cardiac history notable for recently diagnosed multivessel CAD in the context of chest discomfort and abnormal stress test. She also has chronic kidney disease with prior renal transplant on chronic immunosuppression, diabetes, obesity, hypertension, and sleep apnea. An outpatient workup recently demonstrated multivessel CAD, felt best approached with surgical revascularization. She was referred to Dr. Velazco to be seen to discuss surgery, but since discharge she has been experiencing heaviness in her chest and shortness of breath that progressed to the point where she felt that she need to be evaluated. In the ER, she was noted to have mild hypoxemia and was treated with IV Lasix. Imaging of her chest was performed with a noncontrast CT scan that demonstrated mild interstitial edema. Her hypoxemia is improved, but she continues to feel a constant heaviness in her chest. She states that these symptoms are different than what initially provoked her cardiac cath which she states was generalized fatigue. She takes a nitrate chronically, but does not use additional sublingual nitroglycerin. Her EKG was initially unremarkable, and her troponins have been negative. PAST MEDICAL HISTORY: 1. Coronary heart disease, prior stenting and recent catheterization demonstrating multivessel calcific CAD. 2. Normal LV systolic function by echocardiogram. 3. Mild aortic regurgitation. 4. Obstructive sleep apnea. 5. Obesity. 6. Chronic kidney disease stage 3. 7. History of renal transplant, on chronic immunosuppression with tacrolimus, prednisone. 8. Diabetes, insulin dependent. 9. Hypertension. MEDICATIONS: Reviewed per medical record. ALLERGIES: LEVAQUIN CAUSES A RASH. FAMILY HISTORY: Noncontributory. SOCIAL HISTORY: Former smoker. She previously worked with [employer] for 24 years, on Consultation Report [facility] [address] [place]. [address] NAME: GIOVANY MILTON : 59 STATUS : ADM IN PAT#: [id number] AGE: 60 ADM/REG DATE : 08/11/16 MR#: [id number] REPORT SERV DATE: 08/12/16 DICTATED BY: ERIK QUESADA DATE: 08/12/16 REPORT STATUS : Draft TRANSCRIBED BY: MODL DATE: 08/12/16 disability now. No alcohol or illicits. REVIEW OF SYSTEMS: Per HPI. Otherwise, negative. PHYSICAL EXAMINATION: VITAL SIGNS: Temperature is 97.1, initial blood pressure 132/89 with most recent value of 179/77, respiratory rate 20, 96% on room air, previously requiring up to 6 L to maintain sats above 95%. GENERAL: Obese, female, in no apparent distress. Speech is nonlabored. HEENT: Sclerae anicteric. Mucous membranes are moist. NECK: Supple. CARDIOVASCULAR: Regular rate and rhythm. No murmurs were present. PULMONARY: Clear to auscultation. No wheezes, no rales. ABDOMEN: Soft, nondistended, nontender. EXTREMITIES: Warm. LABS: Reviewed, notable for WBC of 11.8 with followup value of 8.4, hemoglobin of 10.1, platelets 294. Procalcitonin less than 0.05. Sodium 142, potassium 5.0, creatinine 1.7 with followup value of 2.2. Troponin less than 0.02 x2. Initial ABG 7.36/31/60 with followup value of 7.37/38/78, both on room air. EKG demonstrates sinus rhythm, rate 70. Nonspecific ST-segment abnormality. Followup EKG with no significant changes except with significant baseline artifact. Echocardiogram from 07/12/2016 demonstrates EF of 60%, mild diastolic dysfunction, normal RV size/function, calcification of aortic valve with mild associated aortic regurgitation. No aortic stenosis. Cardiac catheterization from 07/27/2016 demonstrates severe calcific three-vessel CAD and elevated LVEDP. No evidence of subclavian stenosis, patency of the LUCHO. Chest CT, noncontrast, 08/11/2016 demonstrates borderline cardiomegaly, interstitial edema with small bilateral pleural effusions, and atelectasis. No focal airspace disease. IMPRESSIONS/RECOMMENDATIONS: 1. Dyspnea with mild hypoxemia, abnormal chest CT suggestive of mild interstitial edema, improved with Lasix, now on room air. 2. Chest discomfort suggestive of angina. Troponins are negative. 3. Multivessel CAD. 4. Chronic kidney disease. 5. History of renal transplant. 6. Chronic immunosuppression. 7. Diabetes. 8. Hypertension. 9. Obstructive sleep apnea. The patient's respiratory status has improved and suspect that diastolic heart failure is playing some component. Objectively, she does not have an evidence of active ischemia despite her reported chest discomfort, but based on her degree of CAD, certainly this could Consultation Report [facility] [id number] [place]. [address] NAME: GIOVANY MILTON : 59 STATUS : ADM IN PAT#: [id number] AGE: 60 ADM/REG DATE : 08/11/16 MR#: [id number] REPORT SERV DATE: 08/12/16 DICTATED BY: ERIK QUESADA DATE: 08/12/16 REPORT STATUS : Draft TRANSCRIBED BY: ABRAHAN DATE: 08/12/16 be a true angina. Given her symptoms, I would favor an earlier evaluation by CV surgery as an inpatient. We will ask him to see her. She has multiple factors that increase her surgical risk including her chronic immunosuppression and chronic kidney disease. For now, we will titrate her antianginal therapies namely Coreg and nitrates and provide diuretics as needed. Timing of surgery to be determined. Thank you for the consultation. We will follow. LORA/ABRAHAN Erik Quesada MD / [id number] CC: MD Julienne Light M.D.
--- NOTE | ~2016-08-11 | IDS ---
Interim Discharge Summary [facility] [address] [place]. [address] NAME: GIOVANY MALONE : 59 STATUS : ADM IN [facility]#: [id number] AGE: 60 ADM/REG DATE : 08/11/16 MR#: [id number] REPORT SERV DATE: 08/21/16 DICTATED BY: BRENDA RAZA DATE: 08/21/16 REPORT STATUS : Draft TRANSCRIBED BY: MODL DATE: 08/21/16 ADMISSION DATE: 08/11/2016 DISCHARGE DATE: PROBLEM LIST: 1. Acute hypoxemic failure, improved. 2. Post CABG x4. 3. Acute kidney injury on chronic kidney disease with a history of a kidney transplant, on prednisone and Prograf treatment, currently she is on CRRT in CVICU. We are going to continue the CRRT tonight and probably converting to regular dialysis since her urine output is very poor and not responding to diuretic challenge. 4. Diabetes mellitus. 5. BMI 35. 6. Hypertension. 7. Anemia, status post one unit packed RBC transfusion done, Hemoccult was negative. CONSULTANTS: 1. Dr. Quesada. 2. Dr. Velazco. 3. Dr. Richardson. 4. [facility]. PROCEDURES: 1. Coronary artery bypass x4 performed on 08/14/2016. 2. Left femoral Vas-Cath insertion done by Dr. Richardson on 08/16/2016. 3. CRRT started on 08/16/2016 and continued for five days. We are going to convert to regular dialysis probably tomorrow. HISTORY OF PRESENT ILLNESS: This is a 60-year-old female patient, who has a history of kidney transplant, came to the hospital with chest discomfort and short of breath. Please see dictated H and P. HOSPITAL COURSE: She was admitted to hospital with hypoxia with evidence of pulmonary vascular congestion, had evaluation with cardiac studies. After evaluation with a cardiac catheterization, she was found to have severe multivessel disease and CT Surgery was consulted and had an urgent CABG surgery on 08/14/2016. After she had a CABG, she was remain [facility] however, her urine output and kidney function were worsening. CRRT started on 08/16/2016, and she has been improving through this time issue was for her with kidney disease history, her urine output is gone down a lot and it has not recovered yet. She is hemodynamically recovered. She is off the Levophed. She is going to be watched overnight with continues renal therapy and re-evaluation will be done with Dr. Linton tomorrow morning for possible the converting to dialysis. Overall, had a slow improvement, and we will continue to follow this patient for ICU recovery postop. Interim Discharge Summary [address] [address] NAME: GIOVANY MALONE : 59 STATUS : ADM IN PAT#: [id number] AGE: 60 ADM/REG DATE : 08/11/16 MR#: [id number] REPORT SERV DATE: 08/21/16 DICTATED BY: BRENDA RAZA DATE: 08/21/16 REPORT STATUS : Draft TRANSCRIBED BY: ABRAHAN DATE: 08/21/16 EKCecilia/ABRAHAN Brenda Raza M.D. / [id number] CC: Stefani Pugh M.D.
--- NOTE | ~2016-08-11 | DS ---
Discharge Summary [facility] [address] [place]. [address] NAME: GIOVANY MALONE : 59 STATUS : ADM IN PAT#: [id number] AGE: 60 ADM/REG DATE : 08/11/16 MR#: [id number] REPORT SERV DATE: 09/13/16 DICTATED BY: BRENDA RAZA DATE: 09/12/16 REPORT STATUS : Draft TRANSCRIBED BY: MODL DATE: 09/12/16 ADMISSION DATE: 08/11/2016 DISCHARGE DATE: 09/12/2016 DISCHARGE DIAGNOSES: 1. Acute hypoxic respiratory failure present on admission, improved. 2. Post CABG. 3. Acute kidney injury and chronic kidney disease with history of chronic kidney transplant. The patient is on immunosuppressant, and she was on dialysis several times during the hospitalization. Now, she is off dialysis and will be followed by [facility]. 4. Deep vein thrombosis in the left axillary area. The patient is treated with heparin, and she is in therapeutic level of Coumadin use for anticoagulation. 5. Diabetes mellitus type 2. 6. Morbid obesity. BMI of 48.2. 7. Anemia of acute on chronic, status post recent two units of transfusion. 8. Hypertension. CONSULTANTS: 1. Dr. Quesada in the [facility], is consultant. 2. Dr. Velazco. 3. Dr. Richardson. PROCEDURES: 1. Urgent coronary artery bypass grafting x4. 2. Dialysis. 3. Multiple attempts of dialysis catheter insertion. HISTORY OF PRESENT ILLNESS: This is a 60-year-old female patient, who has multiple medical problems including the history of kidney transplant, presented to emergency room with hypoxia with short of breath and respiratory failure. Please see dictated H and P. HOSPITAL COURSE: She was admitted to the hospital with respiratory failure and during the workup, she was found to have significant multivessel coronary artery disease. Subsequently, transferred to be referred to Dr. Velazco. She had a bypass surgery urgently. Please see dictated interim discharge summary done by Dr. Raza, Dr. Gauthier at multiple times, and also please see dictated discharge summary from Dr. Gauthier dated September 11. Overall, she recovered very well from the surgery. Her hospitalization was extended with renal failure with history of kidney transplant. Overall, she improved well. Most recent issue was her left axilla DVT, swelling, and anemia. She was identified to have the left axilla thrombosis when Dr. Richardson was trying to place the PermCath. She was treated with heparin during hospitalization, and she redeveloped swelling and thrombosis after heparin was discontinued. Therefore, her anticoagulation was decided to be on long-term with Discharge Summary [facility] [id number] [place]. [address] NAME: GIOVANY MALONE : 59 STATUS : ADM IN PAT#: [id number] AGE: 60 ADM/REG DATE : 08/11/16 MR#: [id number] REPORT SERV DATE: 09/13/16 DICTATED BY: BRENDA RAZA DATE: 09/12/16 REPORT STATUS : Draft TRANSCRIBED BY: MODL DATE: 09/12/16 Coumadin, and she made a therapeutic range. After she was stabilized from the renal standpoint and DVT point, she developed worsening anemia, so she was transfused two units of RBC yesterday. There is no evidence of bleeding. She was proved to go to acute rehab and also that process took longer time period. Eventually, the patient was approved to go to [facility] and other medical conditions have been stabilized, recovering from the operation very well. DISCHARGE MEDICATIONS: 1. Aspirin 81 mg once a day. 2. Lipitor 40 mg once at nighttime. 3. Plavix 75 mg once a day. 4. Bentyl 10 mg before meals. 5. Colace 100 mg twice a day. 6. NovoLog sliding scale, 10 units of NovoLog insulin before the meal, Levemir 30 units at night. 7. Singulair 10 mg once a day. 8. Mycostatin twice a day. 9. MiraLAX powder once a day. 10.Prograf 2 mg twice a day. 11.Coumadin 6 mg once a day. 12.Prednisone 20 mg once in the morning time. 13.Dulera twice a day. 14.[place] as a pain medication. DISCHARGE DISPOSITION: The patient is discharged to [facility]. TIME SPENT: More than 30 minutes in discharge coordination and patient education. DICTATED BY: Stefani Pugh/ABRAHAN Brenda Raza M.D. / [id number] CC: Stefani Pugh M.D.
--- NOTE | ~2016-08-11 | OP ---
Record Of Operation [facility] [address] [place]. [address] NAME: GIOVANY MALONE : 59 STATUS : ADM IN PAT#: [id number] AGE: 60 ADM/REG DATE : 08/11/16 MR#: [id number] REPORT SERV DATE: 09/01/16 DICTATED BY: MAGED RICHARDSON DATE: 09/01/16 REPORT STATUS : Draft TRANSCRIBED BY: MODCecilia DATE: 09/01/16 DATE OF PROCEDURE: 08/31/2016 PREOPERATIVE DIAGNOSES: 1. End-stage renal disease. 2. Central venous stenoses. POSTOPERATIVE DIAGNOSES: 1. End-stage renal disease. 2. Central venous stenoses. PROCEDURES: 1. Placement of a left axillary vein PermCath. 2. Percutaneous angioplasty of the left innominate vein and SVC with a 12-mm balloon. SURGEON: Maged Richardson M.D. LOGISTICS SUPPORT: Bruno Alejandra. ANESTHESIA: General. INDICATION: The patient is a 60-year-old female with a history of central venous stenoses and occlusions as well as end-stage renal disease. I placed a central venous catheter through her left axillary vein and had previously angioplastied central venous stenoses. Now, she returns to the operating room for a PermCath placement in the left axillary vein. I did talk to the patient and her extensively about the risks, benefits, and alternatives of intervention. They understand that this is a somewhat unconventional catheter placement. They agreed to proceed so that we could get the catheter out of her left groin. DESCRIPTION OF PROCEDURE: After informed consent was obtained, the patient was taken to the operating room and placed in the supine position on the operating table. An LMA was introduced and general anesthesia was administered. The patient's left upper extremity was prepped and draped in usual sterile fashion. I began by inserting a Spartacore wire under fluoroscopic guidance through the existing catheter. I removed the catheter and inserted a 5-Cymraes sheath. I then exchanged out my Spartacore wire with the assistance of a TrailBlazer catheter. I used a Glidewire to get into the IVC and exchanged out this wire for an Amplatz wire. I inserted a 16-Cymraes 30-cm peel-away sheath such that the tip was in the left innominate vein. I tried to place a 42 cm GlidePath catheter into the right atrium, but had some difficulty passing this. I went back and reviewed my prior imaging and noted a stenosis in the left innominate vein and SVC. I exchanged out my catheter for an 11 Cymraes sheath that I placed through the peel-away sheath. I angioplastied the left innominate vein and SVC with a 12-mm balloon. Imaging was not obtained afterwards because of the patient's renal dysfunction, but potential for her kidney dysfunction resolved. I was able to then exchange out my 11-Cymraes sheath for a 42-cm GlidePath catheter that I placed such that the tip was in the right atrium. I buried the cuff of the catheter deep Record Of Operation [address] [place]. [address] NAME: GIOVANY MALONE : 59 STATUS : ADM IN PAT#: [id number] AGE: 60 ADM/REG DATE : 08/11/16 MR#: [id number] REPORT SERV DATE: 09/01/16 DICTATED BY: MAGED RICHARDSON DATE: 09/01/16 REPORT STATUS : Draft TRANSCRIBED BY: ABRAHAN DATE: 09/01/16 within the subcutaneous tissue such that the catheter would be tunneled somewhat subcutaneously out from the arm. I did this under fluoroscopic guidance. I peeled away the sheath. I withdrew the introducer and aspirated and flushed the catheter well. I packed it with heparin. The patient tolerated the procedure well without any intraprocedural complications noted. In the end, this procedure took over three times as long as a standard PermCath placement because of the degree of difficulty. SOFTWARE APPLICATION TESTER/ABRAHAN Maged Richardson M.D. / [id number] CC: Stefani Pugh M.D. Mandeep Grewal, M.D.
[~2016-08-11 10:44] MED LIST: ADALAT CC30 MG PO; ADALAT CC60 MG PO; ADVAIR250 INH; AFEDITAB30 MG PO; AFEDITAB60 MG PO; ALLEGRA180 PO; AMB10 PO; AMOXIL500 M1 PO; ANASPAZ0.125 MG PO; ASA5GR PO; ASAB PO; ASABAYER PO; ASAEC PO; AZASAN100 MG PO; BENTYL10 PO; CARD120 PO; CEFT5 PO; COREG6 PO; CREON24000 UNT PO; CRESTOR10 PO; DITRO5 PO; ENDOCET1 TAB PO; FIBER LAXATIVE; FLUOXETINE20 MG OR; FOSRENOL1000 MG PO; HALF81 PO; HUMALOG SC; HUMALOGPEN SC; IMDUR60 PO; IMU PO; INSNOV7030 SC; LANTUS SC; LEVEMIR SC; LIBRAX PO; LOM PO; LONOX2.5 MG PO; LORT7 PO; MAGNEBIND PO; MAGOX4 PO; MELA3 PO; MEVACOR PO; MEVACOR10 MG PO; MUCINEX600 MG PO; MYFORTIC360 MG PO; NASONEX NAS; NIFEDIAC CC30 MG PO; NIFEDIAC CC60 MG PO; NIFEDICAL XL30 MG PO; NIFEDICAL XL60 MG PO; NITROII20C TOP; NITROQUICK0.4 MG SL; NORCO1 TA2 PO; NOVOLOG SC; NOVOPEN SC; OXYCOD PO; OXYCON20 PO; P20 PO; P5 PO; PAX20 PO; PCET PO; PEP20 PO; PERCOCET1 TA4 PO; PHOSLO PO; PHOSPHA 250 PO; PR25 PO; PREVALITE4 G1 PO; PRILO PO; PRILOSEC40 MG PO; PROAIR HFA INH; PROAMATINE10 MG PO; PROBIOTIC CAPSULES PO; PROBIOTIC PO; PROGRAF1 PO; PROZAC PO; PYR100B PO; PYR200 PO; REG5 PO; RENA-VITE OR; RENA-VITE PO; REST15 PO; RESTORIL30 MG PO; ROCALTROL0.5 MCG PO; SARAFEM20 M1 OR; SARAFEM20 M1 PO; SINGULAIR1 PO; TOUJEO SC; TUMS E-X750 M2 PO; TUMSROLL PO; VALCYTE PO; VICODINTAB PO; VITD PO; ZINC OTC; ZOFRAN4 PO; ZOVI200CAP PO; [UNRECOGNIZED DRUG - OTHER] IV
[2016-08-11 11:22] LABS: BASOPHILS 0.2 %; BASOPHILS ABSOLUTE 0.02 10/3/uL (0.0-0.16); EOSINOPHILS 0.8 %; EOSINOPHILS ABSOLUTE 0.09 10/3/uL (0.0-0.53); ER CBC TAT 0 Hrs 05 Mins; HEMOGLOBIN 10.1 g/dL (12.0-16.0); IMMATURE GRANULOCYTES 0.3 %; IMMATURE GRANULOCYTES ABSOLUTE 0.04 10/3/uL (0.0-0.11); LYMPHOCYTES 8.5 %; MEAN CORPUS HGB CONC 32.6 g/dL (32.0-36.0); MEAN CORPUSCULAR HEMOGLOB 28.3 pg (26.0-34.0); MEAN CORPUSCULAR VOLUME 86.8 fL (80-100); MEAN PLATELET VOLUME 10.2 fL (9.2-13.0); MONOCYTES 6.9 %; MONOCYTES ABSOLUTE 0.82 10/3/uL (0.21-1.20); NEUTROPHILS 83.3 %; NEUTROPHILS ABSOLUTE 9.85 10/3/uL (2.02-8.40); PLATELET COUNT 294 10/3/uL (150-400); RBC DISTRIBUTION WIDTH 15.7 % (12.0-16.0); RED CELL COUNT 3.57 10/6/uL (4.0-5.6); WHITE BLOOD CELLS 11.8 10/3/uL (4.5-10.5)
[2016-08-11 11:26] LABS: MANUAL DIFF NO %
[2016-08-11 11:28] LABS: INTERNATIONAL NORMAL RATI 1.1 UNITS (-); PARTIAL THROMBO TIME 32.9 SEC (22.5-37.2)
[2016-08-11 12:01] LABS: ALLENS TEST Pos; BE (BASE EXCESS) -7.2 MEQ/L (0 +/- 2.5); CARBOXYHEMOGLOBIN 2.2 % (0-3); HCO3 (ACTUAL BICARBONATE) 17.1 MEQ/L (23-27); HEMOBLOGIN CONTENT 10.6 G/DL (12-16); INSTRUMENT SERIAL # 8087; METHEMOGLOBIN 0.2 % (0-3); O2 CONTENT 12.9 VOL% (18-24); OPERATOR ID 14335; PCO2 (CO2 TENSION) 31 MMHG (35-45); PO2 (O2 TENSION) 60 MMHG (79-93); SAMPLE Arterial; pH 7.36 (7.37-7.43)
[2016-08-11 12:34] LABS: BUN (BLOOD UREA NITROGEN) 29 MG/DL (6-23); CALCIUM, SERUM 7.6 MG/DL (8.5-10.4); CHEST PAIN PROFILE TAT 0 Hrs 24 Mins; CHLORIDE, SERUM 113 MMOL/L (96-112); CO2 (CARBON DIOXIDE) 22 MMOL/L (24-34); CREATININE 1.73 MG/DL (0.55-1.02); GFR AFRICAN AMERICAN 37 ML/MIN (>=60); GFR NON AFRICAN AMERICAN 32 ML/MIN (>=60); GLUCOSE, SERUM 139 MG/DL (60-99); POTASSIUM, SERUM 4.7 MMOL/L (3.5-5.3); SODIUM, SERUM 142 MMOL/L (135-148); TROPONIN I <0.02 NG/ML (<0.05)
[2016-08-11 14:18] LABS: PROCALCITONIN 0.07 ng/mL (<0.5)
[2016-08-11 17:21] LABS: ALBUMIN 2.9 G/DL (3.5-5.0); ALKALINE PHOSPHATASE 145 U/L (45-117); DIRECT BILIRUBIN < 0.1 MG/DL (0.0-0.4); FREE T4 1.22 NG/DL (0.76-1.46); INDIRECT BILIRUBIN(NOT ORDER) 0.1 MG/DL (0.1-0.9); PHOSPHORUS, SERUM 4.5 MG/DL (2.5-4.5); SGOT(AST) 28 U/L (5-40); SGPT(ALT) 31 U/L (5-65); TOTAL BILIRUBIN 0.2 MG/DL (0-1.2); TOTAL PROTEIN 6.9 G/DL (6.0-8.5); ULTRASENSITIVE TSH 0.965 MCIU/ML (0.358-3.740)
[2016-08-12 05:51] LABS: HEMATOCRIT 30.7 % (36.0-48.0); HEMOGLOBIN 9.9 g/dL (12.0-16.0); MANUAL DIFF YES %; MEAN CORPUS HGB CONC 32.2 g/dL (32.0-36.0); MEAN CORPUSCULAR HEMOGLOB 28.5 pg (26.0-34.0); MEAN CORPUSCULAR VOLUME 88.5 fL (80-100); MEAN PLATELET VOLUME 10.4 fL (9.2-13.0); PLATELET COUNT 295 10/3/uL (150-400); RBC DISTRIBUTION WIDTH 15.4 % (12.0-16.0); RED CELL COUNT 3.47 10/6/uL (4.0-5.6); WHITE BLOOD CELLS 8.4 10/3/uL (4.5-10.5)
[2016-08-12 06:11] LABS: ALBUMIN 2.8 G/DL (3.5-5.0); ALKALINE PHOSPHATASE 146 U/L (45-117); CALCIUM, SERUM 7.5 MG/DL (8.5-10.4); CHLORIDE, SERUM 113 MMOL/L (96-112); CO2 (CARBON DIOXIDE) 21 MMOL/L (24-34); GFR AFRICAN AMERICAN 28 ML/MIN (>=60); GFR NON AFRICAN AMERICAN 24 ML/MIN (>=60); GLUCOSE, SERUM 117 MG/DL (60-99); PHOSPHORUS, SERUM 4.3 MG/DL (2.5-4.5); SGOT(AST) 15 U/L (5-40); SGPT(ALT) 25 U/L (5-65); SODIUM, SERUM 142 MMOL/L (135-148); TOTAL BILIRUBIN 0.2 MG/DL (0-1.2)
[2016-08-12 06:13] LABS: A/G RATIO 0.7 (0.7-1.9); BUN (BLOOD UREA NITROGEN) 33 MG/DL (6-23); GLOBULIN 4.2 G/DL (2.5-4.1); ULTRASENSITIVE TSH 0.604 MCIU/ML (0.358-3.740)
[2016-08-12 06:14] LABS: EOSINOPHILS 1 %; EOSINOPHILS ABSOLUTE (CALC) 0.08 10/3/uL (0.0-0.53); IMMATURE GRANS ABSOLUTE (CALC) 0.08 10/3/uL (0.0-0.11); LYMPHOCYTES 20 %; LYMPHOCYTES ABSOLUTE (CALC) 1.68 10/3/uL (0.67-4.30); METAMYELOCYTES 1 %; MONOCYTES 8 %; MONOCYTES ABSOLUTE (CALC) 0.67 10/3/uL (0.21-1.20); NEUTROPHILS ABSOLUTE (CALC) 5.88 10/3/uL (2.02-8.40); PLATELET ESTIMATE ADQ (ADEQUATE); RBC MORPHOLOGY NORM (NORMAL); SEGMENTED NEUTROPHIL (0) 70 %; TOTAL NUCLEATED CELLS 100
[2016-08-12 06:42] LABS: PROCALCITONIN <0.05 ng/mL (<0.5)
[2016-08-12 09:51] LABS: ALLENS TEST Pos; BE (BASE EXCESS) -3.2 MEQ/L (0 +/- 2.5); CARBOXYHEMOGLOBIN 0.4 % (0-3); DEVICE ROOM AIR; HCO3 (ACTUAL BICARBONATE) 21.8 MEQ/L (23-27); HEMOBLOGIN CONTENT 10.9 G/DL (12-16); INSTRUMENT SERIAL # 35151; METHEMOGLOBIN 0.3 % (0-3); O2 CONTENT 14.5 VOL% (18-24); OPERATOR ID 13715; PCO2 (CO2 TENSION) 38 MMHG (35-45); PO2 (O2 TENSION) 78 MMHG (79-93); SAMPLE Arterial; pH 7.37 (7.37-7.43)
[2016-08-12 10:31] LABS: ASCORBIC ACID (UR NOT ORDER) NEG (NEG); BILIRUBIN, URINE NEGATIVE (NEG); KETONE, URINE NEGATIVE (NEG); LEUKOCYTE ESTERASE(NOT OR NEG (NEG); WBC (NOT ORDERED) (RFLEX) 3 (0-5)
[2016-08-13 06:33] LABS: BASOPHILS 0.1 %; BASOPHILS ABSOLUTE 0.01 10/3/uL (0.0-0.16); EOSINOPHILS 0.5 %; EOSINOPHILS ABSOLUTE 0.06 10/3/uL (0.0-0.53); HEMATOCRIT 31.3 % (36.0-48.0); IMMATURE GRANULOCYTES 0.6 %; IMMATURE GRANULOCYTES ABSOLUTE 0.07 10/3/uL (0.0-0.11); LYMPHOCYTES 12.1 %; LYMPHOCYTES ABSOLUTE 1.44 10/3/uL (0.67-4.30); MEAN CORPUS HGB CONC 31.9 g/dL (32.0-36.0); MEAN CORPUSCULAR HEMOGLOB 28.2 pg (26.0-34.0); MEAN CORPUSCULAR VOLUME 88.4 fL (80-100); MEAN PLATELET VOLUME 10.3 fL (9.2-13.0); MONOCYTES 8.7 %; MONOCYTES ABSOLUTE 1.04 10/3/uL (0.21-1.20); NEUTROPHILS ABSOLUTE 9.33 10/3/uL (2.02-8.40); PLATELET COUNT 279 10/3/uL (150-400); RBC DISTRIBUTION WIDTH 15.2 % (12.0-16.0); RED CELL COUNT 3.54 10/6/uL (4.0-5.6)
[2016-08-13 06:37] LABS: MANUAL DIFF NO %
[2016-08-13 06:46] LABS: ALBUMIN 2.9 G/DL (3.5-5.0); CALCIUM, SERUM 7.5 MG/DL (8.5-10.4); CHLORIDE, SERUM 113 MMOL/L (96-112); CO2 (CARBON DIOXIDE) 21 MMOL/L (24-34); CREATININE 2.14 MG/DL (0.55-1.02); GFR AFRICAN AMERICAN 29 ML/MIN (>=60); GFR NON AFRICAN AMERICAN 25 ML/MIN (>=60); GLUCOSE, SERUM 98 MG/DL (60-99); PHOSPHORUS, SERUM 3.6 MG/DL (2.5-4.5); POTASSIUM, SERUM 4.9 MMOL/L (3.5-5.3); SODIUM, SERUM 141 MMOL/L (135-148)
[2016-08-13 06:47] LABS: BUN (BLOOD UREA NITROGEN) 41 MG/DL (6-23)
[2016-08-14 06:06] LABS: BASOPHILS 0.2 %; BASOPHILS ABSOLUTE 0.02 10/3/uL (0.0-0.16); EOSINOPHILS 0.3 %; EOSINOPHILS ABSOLUTE 0.04 10/3/uL (0.0-0.53); HEMATOCRIT 30.1 % (36.0-48.0); HEMOGLOBIN 9.6 g/dL (12.0-16.0); IMMATURE GRANULOCYTES 0.6 %; IMMATURE GRANULOCYTES ABSOLUTE 0.07 10/3/uL (0.0-0.11); LYMPHOCYTES 13.2 %; LYMPHOCYTES ABSOLUTE 1.65 10/3/uL (0.67-4.30); MEAN CORPUS HGB CONC 31.9 g/dL (32.0-36.0); MEAN CORPUSCULAR HEMOGLOB 28.2 pg (26.0-34.0); MEAN CORPUSCULAR VOLUME 88.5 fL (80-100); MEAN PLATELET VOLUME 10.3 fL (9.2-13.0); MONOCYTES 6.4 %; NEUTROPHILS 79.3 %; NEUTROPHILS ABSOLUTE 9.91 10/3/uL (2.02-8.40); PLATELET COUNT 275 10/3/uL (150-400); RBC DISTRIBUTION WIDTH 15.3 % (12.0-16.0); WHITE BLOOD CELLS 12.5 10/3/uL (4.5-10.5)
[2016-08-14 06:07] LABS: MANUAL DIFF NO %
[2016-08-14 06:26] LABS: A/G RATIO 0.8 (0.7-1.9); ALBUMIN 3.1 G/DL (3.5-5.0); ALKALINE PHOSPHATASE 135 U/L (45-117); CALCIUM, SERUM 7.8 MG/DL (8.5-10.4); CHLORIDE, SERUM 109 MMOL/L (96-112); CO2 (CARBON DIOXIDE) 24 MMOL/L (24-34); CREATININE 2.11 MG/DL (0.55-1.02); GFR AFRICAN AMERICAN 29 ML/MIN (>=60); GFR NON AFRICAN AMERICAN 25 ML/MIN (>=60); GLOBULIN 3.9 G/DL (2.5-4.1); PHOSPHORUS, SERUM 3.6 MG/DL (2.5-4.5); SGOT(AST) 12 U/L (5-40); SGPT(ALT) 21 U/L (5-65); SODIUM, SERUM 139 MMOL/L (135-148); TOTAL BILIRUBIN 0.3 MG/DL (0-1.2)
[2016-08-14 06:27] LABS: BUN (BLOOD UREA NITROGEN) 48 MG/DL (6-23); GLUCOSE, SERUM 137 MG/DL (60-99)
[2016-08-14 11:40] LABS: TEG - RATE 4.9 MIN (5.0-10.0)
[2016-08-14 11:41] LABS: TEG - ANGLE 76.2 DEG (53-72); TEG - COAGULATION INDEX 3.3 (-3 TO 3); TEG - LY30 0.9 % (0-8); TEG - MAXIMUM AMPLITUDE 72.9 MM (50-70)
[2016-08-14 14:29] LABS: BE (BASE EXCESS) -4.3 MEQ/L (0 +/- 2.5); CARBOXYHEMOGLOBIN 0.1 % (0-3); HCO3 (ACTUAL BICARBONATE) 20.3 MEQ/L (23-27); INSTRUMENT SERIAL # 11843; METHEMOGLOBIN 0.3 % (0-3); PCO2 (CO2 TENSION) 35 MMHG (35-45); PO2 (O2 TENSION) 184 MMHG (79-93); pH 7.38 (7.37-7.43)
[2016-08-14 14:30] LABS: HEMOBLOGIN CONTENT 9.6 G/DL (12-16); MODE SIMV; O2 CONTENT 13.7 VOL% (18-24); SAMPLE Arterial; TIDAL VOLUME 700 ML
[2016-08-14 14:40] LABS: HEMATOCRIT 27.2 % (36.0-48.0); HEMOGLOBIN 8.8 g/dL (12.0-16.0)
[2016-08-14 14:44] LABS: PLATELET COUNT 168 10/3/uL (150-400)
[2016-08-14 14:47] LABS: INTERNATIONAL NORMAL RATI 1.4 UNITS (-); PARTIAL THROMBO TIME 37.9 SEC (22.5-37.2)
[2016-08-14 14:49] LABS: PROTIME (NOT ORD) 17.2 SEC (12.0-14.5)
[2016-08-14 17:41] LABS: BUN (BLOOD UREA NITROGEN) 42 MG/DL (6-23); CALCIUM, SERUM 7.5 MG/DL (8.5-10.4); CHLORIDE, SERUM 112 MMOL/L (96-112); CO2 (CARBON DIOXIDE) 20 MMOL/L (24-34); CREATININE 2.08 MG/DL (0.55-1.02); GFR AFRICAN AMERICAN 30 ML/MIN (>=60); GFR NON AFRICAN AMERICAN 26 ML/MIN (>=60); GLUCOSE, SERUM 127 MG/DL (60-99); POTASSIUM, SERUM 4.7 MMOL/L (3.5-5.3); SODIUM, SERUM 142 MMOL/L (135-148)
[2016-08-14 20:43] LABS: HEMATOCRIT 27.1 % (36.0-48.0); HEMOGLOBIN 8.8 g/dL (12.0-16.0)
[2016-08-14 20:59] LABS: BUN (BLOOD UREA NITROGEN) 42 MG/DL (6-23); CALCIUM, SERUM 7.2 MG/DL (8.5-10.4); CHLORIDE, SERUM 115 MMOL/L (96-112); CO2 (CARBON DIOXIDE) 24 MMOL/L (24-34); CREATININE 2.05 MG/DL (0.55-1.02); GFR AFRICAN AMERICAN 30 ML/MIN (>=60); GFR NON AFRICAN AMERICAN 26 ML/MIN (>=60); SODIUM, SERUM 146 MMOL/L (135-148)
[2016-08-14 21:00] LABS: GLUCOSE, SERUM 86 MG/DL (60-99)
[2016-08-15 03:51] LABS: HEMATOCRIT 28.3 % (36.0-48.0); HEMOGLOBIN 8.9 g/dL (12.0-16.0); MEAN CORPUS HGB CONC 31.4 g/dL (32.0-36.0); MEAN CORPUSCULAR HEMOGLOB 27.9 pg (26.0-34.0); MEAN CORPUSCULAR VOLUME 88.7 fL (80-100); MEAN PLATELET VOLUME 10.6 fL (9.2-13.0); PLATELET COUNT 185 10/3/uL (150-400); RBC DISTRIBUTION WIDTH 15.1 % (12.0-16.0); RED CELL COUNT 3.19 10/6/uL (4.0-5.6)
[2016-08-15 04:07] LABS: MANUAL DIFF YES %; WHITE BLOOD CELLS 19.5 10/3/uL (4.5-10.5)
[2016-08-15 04:10] LABS: BUN (BLOOD UREA NITROGEN) 42 MG/DL (6-23); CALCIUM, SERUM 7.2 MG/DL (8.5-10.4); CHLORIDE, SERUM 115 MMOL/L (96-112); CO2 (CARBON DIOXIDE) 20 MMOL/L (24-34); CREATININE 2.03 MG/DL (0.55-1.02); GFR AFRICAN AMERICAN 31 ML/MIN (>=60); GFR NON AFRICAN AMERICAN 26 ML/MIN (>=60); GLUCOSE, SERUM 94 MG/DL (60-99); POTASSIUM, SERUM 5.3 MMOL/L (3.5-5.3); SODIUM, SERUM 147 MMOL/L (135-148)
[2016-08-15 04:27] LABS: PHOSPHORUS, SERUM 4.9 MG/DL (2.5-4.5)
[2016-08-15 04:36] LABS: CARBOXYHEMOGLOBIN 0.1 % (0-3); DEVICE VM; HCO3 (ACTUAL BICARBONATE) 18.1 MEQ/L (23-27); HEMOBLOGIN CONTENT 9.9 G/DL (12-16); INSTRUMENT SERIAL # 11843; METHEMOGLOBIN 0.5 % (0-3); O2 CONTENT 13.3 VOL% (18-24); OPERATOR ID 16469; PCO2 (CO2 TENSION) 40 MMHG (35-45); PO2 (O2 TENSION) 86 MMHG (79-93); SAMPLE Arterial; pH 7.28 (7.37-7.43)
[2016-08-15 07:09] LABS: BAND NEUTROPHILS 7 %; LYMPHOCYTES 6 %; LYMPHOCYTES ABSOLUTE (CALC) 1.17 10/3/uL (0.67-4.30); MONOCYTES 4 %; MONOCYTES ABSOLUTE (CALC) 0.78 10/3/uL (0.21-1.20); NEUTROPHILS ABSOLUTE (CALC) 17.55 10/3/uL (2.02-8.40); PLATELET ESTIMATE ADQ (ADEQUATE); RBC MORPHOLOGY NORM (NORMAL); SEGMENTED NEUTROPHIL (0) 83 %; TOTAL NUCLEATED CELLS 100; TOXIC GRANULATION 1+
[2016-08-15 16:35] LABS: HEMATOCRIT 26.3 % (36.0-48.0); HEMOGLOBIN 8.4 g/dL (12.0-16.0)
[2016-08-15 16:46] LABS: POTASSIUM, SERUM 5.5 MMOL/L (3.5-5.3)
[2016-08-16 03:36] LABS: HEMATOCRIT 26.2 % (36.0-48.0); HEMOGLOBIN 8.2 g/dL (12.0-16.0); MANUAL DIFF YES %; MEAN CORPUS HGB CONC 31.3 g/dL (32.0-36.0); MEAN CORPUSCULAR HEMOGLOB 28.2 pg (26.0-34.0); MEAN PLATELET VOLUME 11.1 fL (9.2-13.0); PLATELET COUNT 207 10/3/uL (150-400); RBC DISTRIBUTION WIDTH 15.7 % (12.0-16.0); RED CELL COUNT 2.91 10/6/uL (4.0-5.6); WHITE BLOOD CELLS 23.9 10/3/uL (4.5-10.5)
[2016-08-16 03:49] LABS: CALCIUM, SERUM 7.1 MG/DL (8.5-10.4); CHLORIDE, SERUM 108 MMOL/L (96-112); CO2 (CARBON DIOXIDE) 18 MMOL/L (24-34); POTASSIUM, SERUM 5.5 MMOL/L (3.5-5.3)
[2016-08-16 03:51] LABS: BUN (BLOOD UREA NITROGEN) 49 MG/DL (6-23); CREATININE 2.75 MG/DL (0.55-1.02); GFR AFRICAN AMERICAN 21 ML/MIN (>=60); GFR NON AFRICAN AMERICAN 18 ML/MIN (>=60); GLUCOSE, SERUM 188 MG/DL (60-99); SODIUM, SERUM 140 MMOL/L (135-148)
[2016-08-16 04:00] LABS: LYMPHOCYTES 7 %; LYMPHOCYTES ABSOLUTE (CALC) 1.67 10/3/uL (0.67-4.30); MONOCYTES 8 %; MONOCYTES ABSOLUTE (CALC) 1.91 10/3/uL (0.21-1.20); NEUTROPHILS ABSOLUTE (CALC) 20.32 10/3/uL (2.02-8.40); PLATELET ESTIMATE ADQ (ADEQUATE); RBC MORPHOLOGY NORM (NORMAL); SEGMENTED NEUTROPHIL (0) 85 %; TOTAL NUCLEATED CELLS 100
[2016-08-16 15:30] LABS: BASOPHILS 0 %; BASOPHILS ABSOLUTE 0.01 10/3/uL (0.0-0.16); EOSINOPHILS 0 %; HEMATOCRIT 24.2 % (36.0-48.0); HEMOGLOBIN 7.8 g/dL (12.0-16.0); IMMATURE GRANULOCYTES 0.6 %; IMMATURE GRANULOCYTES ABSOLUTE 0.13 10/3/uL (0.0-0.11); LYMPHOCYTES 6.3 %; LYMPHOCYTES ABSOLUTE 1.28 10/3/uL (0.67-4.30); MEAN CORPUS HGB CONC 32.2 g/dL (32.0-36.0); MEAN CORPUSCULAR HEMOGLOB 28.4 pg (26.0-34.0); MEAN PLATELET VOLUME 10.9 fL (9.2-13.0); MONOCYTES 8.4 %; MONOCYTES ABSOLUTE 1.69 10/3/uL (0.21-1.20); NEUTROPHILS 84.7 %; NEUTROPHILS ABSOLUTE 17.12 10/3/uL (2.02-8.40); PLATELET COUNT 182 10/3/uL (150-400); RBC DISTRIBUTION WIDTH 15.8 % (12.0-16.0); RED CELL COUNT 2.75 10/6/uL (4.0-5.6); WHITE BLOOD CELLS 20.2 10/3/uL (4.5-10.5)
[2016-08-16 15:31] LABS: MANUAL DIFF NO %
[2016-08-16 16:02] LABS: ALBUMIN 3.2 G/DL (3.5-5.0); CHLORIDE, SERUM 106 MMOL/L (96-112); CO2 (CARBON DIOXIDE) 20 MMOL/L (24-34); CREATININE 2.78 MG/DL (0.55-1.02); GFR AFRICAN AMERICAN 21 ML/MIN (>=60); GFR NON AFRICAN AMERICAN 18 ML/MIN (>=60); GLUCOSE, SERUM 219 MG/DL (60-99); POTASSIUM, SERUM 4.8 MMOL/L (3.5-5.3); SGOT(AST) 26 U/L (5-40); SGPT(ALT) 32 U/L (5-65); SODIUM, SERUM 140 MMOL/L (135-148); TOTAL BILIRUBIN 0.3 MG/DL (0-1.2)
[2016-08-16 16:04] LABS: A/G RATIO 1.1 (0.7-1.9); ALKALINE PHOSPHATASE 121 U/L (45-117); BUN (BLOOD UREA NITROGEN) 53 MG/DL (6-23); CALCIUM, SERUM 6.7 MG/DL (8.5-10.4); GLOBULIN 2.8 G/DL (2.5-4.1)
[2016-08-16 16:36] LABS: CARBOXYHEMOGLOBIN 0.7 % (0-3); DEVICE NC; HCO3 (ACTUAL BICARBONATE) 17.9 MEQ/L (23-27); HEMOBLOGIN CONTENT 8.7 G/DL (12-16); INSTRUMENT SERIAL # 11843; METHEMOGLOBIN 0.4 % (0-3); O2 CONTENT 10.8 VOL% (18-24); OPERATOR ID 35188; PCO2 (CO2 TENSION) 34 MMHG (35-45); PO2 (O2 TENSION) 58 MMHG (79-93); SAMPLE Arterial; pH 7.35 (7.37-7.43)
[2016-08-16 21:30] LABS: HEMATOCRIT 24.2 % (36.0-48.0); HEMOGLOBIN 7.8 g/dL (12.0-16.0); MEAN CORPUS HGB CONC 32.2 g/dL (32.0-36.0); MEAN CORPUSCULAR HEMOGLOB 28.1 pg (26.0-34.0); MEAN CORPUSCULAR VOLUME 87.1 fL (80-100); MEAN PLATELET VOLUME 10.8 fL (9.2-13.0); NUCLEATED RED BLOOD CELLS 0.4 /100WBC (0-0); PLATELET COUNT 185 10/3/uL (150-400); RBC DISTRIBUTION WIDTH 15.5 % (12.0-16.0); RED CELL COUNT 2.78 10/6/uL (4.0-5.6)
[2016-08-16 21:31] LABS: MANUAL DIFF YES %; WHITE BLOOD CELLS 25.8 10/3/uL (4.5-10.5)
[2016-08-16 21:36] LABS: BUN (BLOOD UREA NITROGEN) 30 MG/DL (6-23); CALCIUM, SERUM 6.1 MG/DL (8.5-10.4); CHLORIDE, SERUM 104 MMOL/L (96-112); CO2 (CARBON DIOXIDE) 25 MMOL/L (24-34); CREATININE 1.75 MG/DL (0.55-1.02); GFR AFRICAN AMERICAN 37 ML/MIN (>=60); GFR NON AFRICAN AMERICAN 32 ML/MIN (>=60); GLUCOSE, SERUM 118 MG/DL (60-99); PHOSPHORUS, SERUM 2.5 MG/DL (2.5-4.5); POTASSIUM, SERUM 4.1 MMOL/L (3.5-5.3); SODIUM, SERUM 140 MMOL/L (135-148)
[2016-08-16 21:41] LABS: BAND NEUTROPHILS 2 %; LYMPHOCYTES 2 %; LYMPHOCYTES ABSOLUTE (CALC) 0.52 10/3/uL (0.67-4.30); MONOCYTES 7 %; MONOCYTES ABSOLUTE (CALC) 1.81 10/3/uL (0.21-1.20); NEUTROPHILS ABSOLUTE (CALC) 23.48 10/3/uL (2.02-8.40); PLATELET ESTIMATE ADQ (ADEQUATE); RBC MORPHOLOGY NORM (NORMAL); SEGMENTED NEUTROPHIL (0) 89 %; TOTAL NUCLEATED CELLS 100
[2016-08-17 03:59] LABS: HEMATOCRIT 23.5 % (36.0-48.0); HEMOGLOBIN 7.8 g/dL (12.0-16.0); MEAN CORPUS HGB CONC 33.2 g/dL (32.0-36.0); MEAN CORPUSCULAR HEMOGLOB 28.5 pg (26.0-34.0); MEAN CORPUSCULAR VOLUME 85.8 fL (80-100); NUCLEATED RED BLOOD CELLS 0.8 /100WBC (0-0); PLATELET COUNT 182 10/3/uL (150-400); RBC DISTRIBUTION WIDTH 15.3 % (12.0-16.0); RED CELL COUNT 2.74 10/6/uL (4.0-5.6); WHITE BLOOD CELLS 24.5 10/3/uL (4.5-10.5)
[2016-08-17 04:00] LABS: MANUAL DIFF YES %
[2016-08-17 04:03] LABS: BUN (BLOOD UREA NITROGEN) 20 MG/DL (6-23); CALCIUM, SERUM 6.4 MG/DL (8.5-10.4); CHLORIDE, SERUM 104 MMOL/L (96-112); CO2 (CARBON DIOXIDE) 25 MMOL/L (24-34); CREATININE 1.32 MG/DL (0.55-1.02); GFR AFRICAN AMERICAN 51 ML/MIN (>=60); GFR NON AFRICAN AMERICAN 44 ML/MIN (>=60); GLUCOSE, SERUM 97 MG/DL (60-99); POTASSIUM, SERUM 3.8 MMOL/L (3.5-5.3); SODIUM, SERUM 141 MMOL/L (135-148)
[2016-08-17 04:11] LABS: BAND NEUTROPHILS 6 %; LYMPHOCYTES 7 %; LYMPHOCYTES ABSOLUTE (CALC) 1.72 10/3/uL (0.67-4.30); MONOCYTES 9 %; MONOCYTES ABSOLUTE (CALC) 2.21 10/3/uL (0.21-1.20); NEUTROPHILS ABSOLUTE (CALC) 20.58 10/3/uL (2.02-8.40); PLATELET ESTIMATE ADQ (ADEQUATE); RBC MORPHOLOGY NORM (NORMAL); SEGMENTED NEUTROPHIL (0) 78 %; TOTAL NUCLEATED CELLS 100
[2016-08-17 04:44] LABS: PHOSPHORUS, SERUM 2.3 MG/DL (2.5-4.5)
[2016-08-17 08:02] LABS: PROCALCITONIN 0.32 ng/mL (<0.5)
[2016-08-17 10:09] LABS: BASOPHILS 0 %; BASOPHILS ABSOLUTE 0.01 10/3/uL (0.0-0.16); EOSINOPHILS 0 %; HEMATOCRIT 21.8 % (36.0-48.0); IMMATURE GRANULOCYTES 0.7 %; IMMATURE GRANULOCYTES ABSOLUTE 0.14 10/3/uL (0.0-0.11); LYMPHOCYTES 7.3 %; LYMPHOCYTES ABSOLUTE 1.54 10/3/uL (0.67-4.30); MEAN CORPUS HGB CONC 32.1 g/dL (32.0-36.0); MEAN CORPUSCULAR VOLUME 87.2 fL (80-100); MEAN PLATELET VOLUME 10.8 fL (9.2-13.0); MONOCYTES ABSOLUTE 1.89 10/3/uL (0.21-1.20); NEUTROPHILS ABSOLUTE 17.41 10/3/uL (2.02-8.40); NUCLEATED RED BLOOD CELLS 1.6 /100WBC (0-0); PLATELET COUNT 166 10/3/uL (150-400); RBC DISTRIBUTION WIDTH 15.5 % (12.0-16.0)
[2016-08-17 10:10] LABS: MANUAL DIFF NO %
[2016-08-17 10:11] LABS: BUN (BLOOD UREA NITROGEN) 14 MG/DL (6-23); CALCIUM, SERUM 7.5 MG/DL (8.5-10.4); CHLORIDE, SERUM 103 MMOL/L (96-112); CO2 (CARBON DIOXIDE) 30 MMOL/L (24-34); CREATININE 1.05 MG/DL (0.55-1.02); GFR AFRICAN AMERICAN 68 ML/MIN (>=60); GFR NON AFRICAN AMERICAN 58 ML/MIN (>=60); GLUCOSE, SERUM 144 MG/DL (60-99); PHOSPHORUS, SERUM 2.6 MG/DL (2.5-4.5); POTASSIUM, SERUM 4.1 MMOL/L (3.5-5.3); SODIUM, SERUM 139 MMOL/L (135-148)
[2016-08-17 16:35] LABS: BASOPHILS 0.1 %; BASOPHILS ABSOLUTE 0.01 10/3/uL (0.0-0.16); EOSINOPHILS 0 %; HEMATOCRIT 22.2 % (36.0-48.0); IMMATURE GRANULOCYTES 0.5 %; IMMATURE GRANULOCYTES ABSOLUTE 0.09 10/3/uL (0.0-0.11); LYMPHOCYTES 5.5 %; LYMPHOCYTES ABSOLUTE 1.02 10/3/uL (0.67-4.30); MEAN CORPUS HGB CONC 31.5 g/dL (32.0-36.0); MEAN CORPUSCULAR HEMOGLOB 27.2 pg (26.0-34.0); MEAN CORPUSCULAR VOLUME 86.4 fL (80-100); MEAN PLATELET VOLUME 11.4 fL (9.2-13.0); MONOCYTES 7.2 %; MONOCYTES ABSOLUTE 1.34 10/3/uL (0.21-1.20); NEUTROPHILS 86.7 %; NEUTROPHILS ABSOLUTE 16.18 10/3/uL (2.02-8.40); NUCLEATED RED BLOOD CELLS 1.6 /100WBC (0-0); PLATELET COUNT 154 10/3/uL (150-400); RBC DISTRIBUTION WIDTH 15.5 % (12.0-16.0); RED CELL COUNT 2.57 10/6/uL (4.0-5.6); WHITE BLOOD CELLS 18.6 10/3/uL (4.5-10.5)
[2016-08-17 16:36] LABS: MANUAL DIFF NO %
[2016-08-17 17:01] LABS: BUN (BLOOD UREA NITROGEN) 12 MG/DL (6-23); CHLORIDE, SERUM 103 MMOL/L (96-112); CO2 (CARBON DIOXIDE) 27 MMOL/L (24-34); GFR AFRICAN AMERICAN 72 ML/MIN (>=60); GFR NON AFRICAN AMERICAN 62 ML/MIN (>=60); GLUCOSE, SERUM 166 MG/DL (60-99); POTASSIUM, SERUM 4.3 MMOL/L (3.5-5.3); SODIUM, SERUM 139 MMOL/L (135-148)
[2016-08-17 22:21] LABS: BASOPHILS 0.1 %; BASOPHILS ABSOLUTE 0.01 10/3/uL (0.0-0.16); EOSINOPHILS 0 %; HEMATOCRIT 22.2 % (36.0-48.0); HEMOGLOBIN 7.3 g/dL (12.0-16.0); IMMATURE GRANULOCYTES 0.6 %; IMMATURE GRANULOCYTES ABSOLUTE 0.11 10/3/uL (0.0-0.11); LYMPHOCYTES ABSOLUTE 1.38 10/3/uL (0.67-4.30); MEAN CORPUS HGB CONC 32.9 g/dL (32.0-36.0); MEAN CORPUSCULAR HEMOGLOB 28.6 pg (26.0-34.0); MEAN CORPUSCULAR VOLUME 87.1 fL (80-100); MEAN PLATELET VOLUME 11.8 fL (9.2-13.0); MONOCYTES 8.2 %; MONOCYTES ABSOLUTE 1.63 10/3/uL (0.21-1.20); NEUTROPHILS 84.1 %; NEUTROPHILS ABSOLUTE 16.64 10/3/uL (2.02-8.40); NUCLEATED RED BLOOD CELLS 2.5 /100WBC (0-0); PLATELET COUNT 176 10/3/uL (150-400); RBC DISTRIBUTION WIDTH 15.4 % (12.0-16.0); RED CELL COUNT 2.55 10/6/uL (4.0-5.6); WHITE BLOOD CELLS 19.8 10/3/uL (4.5-10.5)
[2016-08-17 22:22] LABS: MANUAL DIFF NO %
[2016-08-17 22:24] LABS: BUN (BLOOD UREA NITROGEN) 10 MG/DL (6-23); CALCIUM, SERUM 7.6 MG/DL (8.5-10.4); CHLORIDE, SERUM 103 MMOL/L (96-112); CO2 (CARBON DIOXIDE) 27 MMOL/L (24-34); CREATININE 0.97 MG/DL (0.55-1.02); GFR AFRICAN AMERICAN 75 ML/MIN (>=60); GFR NON AFRICAN AMERICAN 64 ML/MIN (>=60); GLUCOSE, SERUM 160 MG/DL (60-99); PHOSPHORUS, SERUM 2.2 MG/DL (2.5-4.5); POTASSIUM, SERUM 4.5 MMOL/L (3.5-5.3); SODIUM, SERUM 141 MMOL/L (135-148)
[2016-08-18 04:49] LABS: A/G RATIO 1.1 (0.7-1.9); ALBUMIN 3.2 G/DL (3.5-5.0); ALKALINE PHOSPHATASE 124 U/L (45-117); BUN (BLOOD UREA NITROGEN) 9 MG/DL (6-23); CALCIUM, SERUM 7.5 MG/DL (8.5-10.4); CHLORIDE, SERUM 103 MMOL/L (96-112); CO2 (CARBON DIOXIDE) 27 MMOL/L (24-34); GFR AFRICAN AMERICAN 82 ML/MIN (>=60); GFR NON AFRICAN AMERICAN 70 ML/MIN (>=60); GLOBULIN 2.8 G/DL (2.5-4.1); GLUCOSE, SERUM 146 MG/DL (60-99); POTASSIUM, SERUM 4.1 MMOL/L (3.5-5.3); SGOT(AST) 24 U/L (5-40); SGPT(ALT) 21 U/L (5-65); SODIUM, SERUM 140 MMOL/L (135-148); TOTAL BILIRUBIN 0.5 MG/DL (0-1.2)
[2016-08-18 05:19] LABS: BASOPHILS 0.1 %; BASOPHILS ABSOLUTE 0.01 10/3/uL (0.0-0.16); EOSINOPHILS 0 %; HEMATOCRIT 21.6 % (36.0-48.0); IMMATURE GRANULOCYTES 0.7 %; IMMATURE GRANULOCYTES ABSOLUTE 0.12 10/3/uL (0.0-0.11); LYMPHOCYTES 6.2 %; LYMPHOCYTES ABSOLUTE 1.05 10/3/uL (0.67-4.30); MEAN CORPUS HGB CONC 32.4 g/dL (32.0-36.0); MEAN CORPUSCULAR VOLUME 86.4 fL (80-100); MEAN PLATELET VOLUME 11.7 fL (9.2-13.0); MONOCYTES 6.9 %; MONOCYTES ABSOLUTE 1.16 10/3/uL (0.21-1.20); NEUTROPHILS 86.1 %; NEUTROPHILS ABSOLUTE 14.48 10/3/uL (2.02-8.40); NUCLEATED RED BLOOD CELLS 3.3 /100WBC (0-0); PLATELET COUNT 157 10/3/uL (150-400); RBC DISTRIBUTION WIDTH 15.4 % (12.0-16.0); WHITE BLOOD CELLS 16.8 10/3/uL (4.5-10.5)
[2016-08-18 05:21] LABS: MANUAL DIFF NO %
[2016-08-18 11:00] LABS: BASOPHILS 0.1 %; BASOPHILS ABSOLUTE 0.01 10/3/uL (0.0-0.16); EOSINOPHILS 0 %; HEMATOCRIT 21.9 % (36.0-48.0); IMMATURE GRANULOCYTES 0.8 %; IMMATURE GRANULOCYTES ABSOLUTE 0.12 10/3/uL (0.0-0.11); LYMPHOCYTES 9.1 %; LYMPHOCYTES ABSOLUTE 1.36 10/3/uL (0.67-4.30); MEAN CORPUS HGB CONC 31.5 g/dL (32.0-36.0); MEAN CORPUSCULAR HEMOGLOB 27.8 pg (26.0-34.0); MEAN CORPUSCULAR VOLUME 88.3 fL (80-100); MEAN PLATELET VOLUME 11.5 fL (9.2-13.0); MONOCYTES 9.6 %; MONOCYTES ABSOLUTE 1.43 10/3/uL (0.21-1.20); NEUTROPHILS 80.4 %; NEUTROPHILS ABSOLUTE 12.01 10/3/uL (2.02-8.40); NUCLEATED RED BLOOD CELLS 4.3 /100WBC (0-0); PLATELET COUNT 181 10/3/uL (150-400); RBC DISTRIBUTION WIDTH 15.4 % (12.0-16.0); RED CELL COUNT 2.48 10/6/uL (4.0-5.6); WHITE BLOOD CELLS 14.9 10/3/uL (4.5-10.5)
[2016-08-18 11:01] LABS: MANUAL DIFF NO %
[2016-08-18 11:11] LABS: BUN (BLOOD UREA NITROGEN) 10 MG/DL (6-23); CHLORIDE, SERUM 101 MMOL/L (96-112); CO2 (CARBON DIOXIDE) 26 MMOL/L (24-34); CREATININE 1.05 MG/DL (0.55-1.02); GFR AFRICAN AMERICAN 68 ML/MIN (>=60); GFR NON AFRICAN AMERICAN 58 ML/MIN (>=60); PHOSPHORUS, SERUM 2.6 MG/DL (2.5-4.5); POTASSIUM, SERUM 4.1 MMOL/L (3.5-5.3); SODIUM, SERUM 135 MMOL/L (135-148)
[2016-08-18 11:12] LABS: CALCIUM, SERUM 8.5 MG/DL (8.5-10.4); GLUCOSE, SERUM 235 MG/DL (60-99)
[2016-08-18 16:09] LABS: BASOPHILS 0.1 %; BASOPHILS ABSOLUTE 0.02 10/3/uL (0.0-0.16); EOSINOPHILS 0 %; HEMATOCRIT 22.5 % (36.0-48.0); IMMATURE GRANULOCYTES 1.1 %; IMMATURE GRANULOCYTES ABSOLUTE 0.19 10/3/uL (0.0-0.11); LYMPHOCYTES 7.3 %; MANUAL DIFF NO %; MEAN CORPUS HGB CONC 31.1 g/dL (32.0-36.0); MEAN CORPUSCULAR HEMOGLOB 27.7 pg (26.0-34.0); MEAN CORPUSCULAR VOLUME 88.9 fL (80-100); MEAN PLATELET VOLUME 11.7 fL (9.2-13.0); MONOCYTES 8.5 %; NEUTROPHILS ABSOLUTE 14.74 10/3/uL (2.02-8.40); PLATELET COUNT 186 10/3/uL (150-400); RBC DISTRIBUTION WIDTH 15.6 % (12.0-16.0); RED CELL COUNT 2.53 10/6/uL (4.0-5.6); WHITE BLOOD CELLS 17.8 10/3/uL (4.5-10.5)
[2016-08-18 16:12] LABS: BUN (BLOOD UREA NITROGEN) 10 MG/DL (6-23); CALCIUM, SERUM 9.1 MG/DL (8.5-10.4); CHLORIDE, SERUM 105 MMOL/L (96-112); CO2 (CARBON DIOXIDE) 25 MMOL/L (24-34); CREATININE 1.06 MG/DL (0.55-1.02); GFR AFRICAN AMERICAN 67 ML/MIN (>=60); GFR NON AFRICAN AMERICAN 58 ML/MIN (>=60); POTASSIUM, SERUM 4.2 MMOL/L (3.5-5.3); SODIUM, SERUM 140 MMOL/L (135-148)
[2016-08-18 16:13] LABS: GLUCOSE, SERUM 132 MG/DL (60-99)
[2016-08-18 17:02] LABS: PHOSPHORUS, SERUM 2.4 MG/DL (2.5-4.5)
[2016-08-18 21:54] LABS: HEMATOCRIT 22.5 % (36.0-48.0); MEAN CORPUS HGB CONC 31.1 g/dL (32.0-36.0); MEAN CORPUSCULAR HEMOGLOB 27.9 pg (26.0-34.0); MEAN CORPUSCULAR VOLUME 89.6 fL (80-100); MEAN PLATELET VOLUME 11.2 fL (9.2-13.0); NUCLEATED RED BLOOD CELLS 11.3 /100WBC (0-0); PLATELET COUNT 201 10/3/uL (150-400); RBC DISTRIBUTION WIDTH 15.8 % (12.0-16.0); RED CELL COUNT 2.51 10/6/uL (4.0-5.6); WHITE BLOOD CELLS 17.3 10/3/uL (4.5-10.5)
[2016-08-18 21:57] LABS: BUN (BLOOD UREA NITROGEN) 21 MG/DL (6-23); CALCIUM, SERUM 8.6 MG/DL (8.5-10.4); CHLORIDE, SERUM 101 MMOL/L (96-112); CO2 (CARBON DIOXIDE) 28 MMOL/L (24-34); CREATININE 1.26 MG/DL (0.55-1.02); GFR AFRICAN AMERICAN 54 ML/MIN (>=60); GFR NON AFRICAN AMERICAN 47 ML/MIN (>=60); GLUCOSE, SERUM 127 MG/DL (60-99); PHOSPHORUS, SERUM 4.5 MG/DL (2.5-4.5); POTASSIUM, SERUM 4.5 MMOL/L (3.5-5.3); SODIUM, SERUM 137 MMOL/L (135-148)
[2016-08-18 22:06] LABS: MANUAL DIFF YES %
[2016-08-18 22:30] LABS: LYMPHOCYTES 9 %; LYMPHOCYTES ABSOLUTE (CALC) 1.56 10/3/uL (0.67-4.30); MONOCYTES 8 %; MONOCYTES ABSOLUTE (CALC) 1.38 10/3/uL (0.21-1.20); NEUTROPHILS ABSOLUTE (CALC) 14.36 10/3/uL (2.02-8.40); PLATELET ESTIMATE ADQ (ADEQUATE); RBC MORPHOLOGY NORM (NORMAL); SEGMENTED NEUTROPHIL (0) 83 %; TOTAL NUCLEATED CELLS 100
[2016-08-19 03:30] LABS: CARBOXYHEMOGLOBIN 2.1 % (0-3); DEVICE NC; HCO3 (ACTUAL BICARBONATE) 21.3 MEQ/L (23-27); HEMOBLOGIN CONTENT 7.4 G/DL (12-16); INSTRUMENT SERIAL # 11843; METHEMOGLOBIN 0.6 % (0-3); O2 CONTENT 9.7 VOL% (18-24); OPERATOR ID 16503; PCO2 (CO2 TENSION) 34 MMHG (35-45); PO2 (O2 TENSION) 76 MMHG (79-93); SAMPLE Arterial; pH 7.41 (7.37-7.43)
[2016-08-19 03:40] LABS: MEAN CORPUS HGB CONC 32.1 g/dL (32.0-36.0); MEAN CORPUSCULAR HEMOGLOB 28.6 pg (26.0-34.0); MEAN CORPUSCULAR VOLUME 89.3 fL (80-100); MEAN PLATELET VOLUME 11.4 fL (9.2-13.0); NUCLEATED RED BLOOD CELLS 17.9 /100WBC (0-0); PLATELET COUNT 195 10/3/uL (150-400); RBC DISTRIBUTION WIDTH 15.6 % (12.0-16.0); RED CELL COUNT 2.34 10/6/uL (4.0-5.6); WHITE BLOOD CELLS 15.1 10/3/uL (4.5-10.5)
[2016-08-19 03:42] LABS: HEMATOCRIT 20.9 % (36.0-48.0); HEMOGLOBIN 6.7 g/dL (12.0-16.0)
[2016-08-19 03:43] LABS: MANUAL DIFF YES %
[2016-08-19 03:51] LABS: BAND NEUTROPHILS 2 %; LYMPHOCYTES 12 %; LYMPHOCYTES ABSOLUTE (CALC) 1.81 10/3/uL (0.67-4.30); METAMYELOCYTES 1 %; MONOCYTES 8 %; MONOCYTES ABSOLUTE (CALC) 1.21 10/3/uL (0.21-1.20); MYELOCYTES 1 %; NEUTROPHILS ABSOLUTE (CALC) 11.78 10/3/uL (2.02-8.40); SEGMENTED NEUTROPHIL (0) 76 %; TOTAL NUCLEATED CELLS 100
[2016-08-19 03:52] LABS: PLATELET ESTIMATE ADQ (ADEQUATE); RBC MORPHOLOGY NORM (NORMAL)
[2016-08-19 04:07] LABS: A/G RATIO 1.4 (0.7-1.9); ALBUMIN 3.6 G/DL (3.5-5.0); CALCIUM, SERUM 9.4 MG/DL (8.5-10.4); CHLORIDE, SERUM 104 MMOL/L (96-112); CO2 (CARBON DIOXIDE) 24 MMOL/L (24-34); FERRITIN 378 NG/ML (8-252); GFR AFRICAN AMERICAN 58 ML/MIN (>=60); GFR NON AFRICAN AMERICAN 50 ML/MIN (>=60); GLOBULIN 2.5 G/DL (2.5-4.1); GLUCOSE, SERUM 118 MG/DL (60-99); IRON BINDING CAPACITY 137 MCG/DL (225-410); IRON, SERUM 47 MCG/DL (35-150); POTASSIUM, SERUM 3.8 MMOL/L (3.5-5.3); SGOT(AST) 19 U/L (5-40); SGPT(ALT) 21 U/L (5-65); SODIUM, SERUM 139 MMOL/L (135-148); TOTAL BILIRUBIN 0.6 MG/DL (0-1.2); TOTAL PROTEIN 6.1 G/DL (6.0-8.5)
[2016-08-19 04:18] LABS: ALKALINE PHOSPHATASE 110 U/L (45-117); BUN (BLOOD UREA NITROGEN) 10 MG/DL (6-23); FOLATE 7.2 NG/ML (>5.2); PHOSPHORUS, SERUM 1.9 MG/DL (2.5-4.5)
[2016-08-19 11:12] LABS: BUN (BLOOD UREA NITROGEN) 11 MG/DL (6-23); CALCIUM, SERUM 9.1 MG/DL (8.5-10.4); CHLORIDE, SERUM 104 MMOL/L (96-112); CO2 (CARBON DIOXIDE) 23 MMOL/L (24-34); CREATININE 1.23 MG/DL (0.55-1.02); GFR AFRICAN AMERICAN 56 ML/MIN (>=60); GFR NON AFRICAN AMERICAN 48 ML/MIN (>=60); GLUCOSE, SERUM 210 MG/DL (60-99); PHOSPHORUS, SERUM 4.2 MG/DL (2.5-4.5); POTASSIUM, SERUM 3.8 MMOL/L (3.5-5.3); SODIUM, SERUM 133 MMOL/L (135-148)
[2016-08-19 11:13] LABS: HEMATOCRIT 24.6 % (36.0-48.0); HEMOGLOBIN 7.9 g/dL (12.0-16.0); MANUAL DIFF YES %; MEAN CORPUS HGB CONC 32.1 g/dL (32.0-36.0); MEAN CORPUSCULAR HEMOGLOB 29.2 pg (26.0-34.0); MEAN CORPUSCULAR VOLUME 90.8 fL (80-100); MEAN PLATELET VOLUME 10.9 fL (9.2-13.0); NUCLEATED RED BLOOD CELLS 17.2 /100WBC (0-0); PLATELET COUNT 177 10/3/uL (150-400); RBC DISTRIBUTION WIDTH 15.7 % (12.0-16.0); RED CELL COUNT 2.71 10/6/uL (4.0-5.6); WHITE BLOOD CELLS 13.6 10/3/uL (4.5-10.5)
[2016-08-19 11:26] LABS: BAND NEUTROPHILS 1 %; EOSINOPHILS 1 %; EOSINOPHILS ABSOLUTE (CALC) 0.14 10/3/uL (0.0-0.53); IMMATURE GRANS ABSOLUTE (CALC) 0.14 10/3/uL (0.0-0.11); LYMPHOCYTES 15 %; LYMPHOCYTES ABSOLUTE (CALC) 2.04 10/3/uL (0.67-4.30); METAMYELOCYTES 1 %; MONOCYTES 13 %; MONOCYTES ABSOLUTE (CALC) 1.77 10/3/uL (0.21-1.20); NEUTROPHILS ABSOLUTE (CALC) 9.52 10/3/uL (2.02-8.40); SEGMENTED NEUTROPHIL (0) 69 %; TOTAL NUCLEATED CELLS 100
[2016-08-19 11:27] LABS: PLATELET ESTIMATE ADQ (ADEQUATE); POLYCHROMASIA 2+ (5-10/OIF) (0-1/OIF)
[2016-08-19 17:27] LABS: HEMATOCRIT 25.9 % (36.0-48.0); HEMOGLOBIN 8.1 g/dL (12.0-16.0); MEAN CORPUS HGB CONC 31.3 g/dL (32.0-36.0); MEAN CORPUSCULAR HEMOGLOB 28.3 pg (26.0-34.0); MEAN CORPUSCULAR VOLUME 90.6 fL (80-100); MEAN PLATELET VOLUME 10.7 fL (9.2-13.0); NUCLEATED RED BLOOD CELLS 11.4 /100WBC (0-0); PLATELET COUNT 180 10/3/uL (150-400); RBC DISTRIBUTION WIDTH 15.3 % (12.0-16.0); RED CELL COUNT 2.86 10/6/uL (4.0-5.6); WHITE BLOOD CELLS 13.4 10/3/uL (4.5-10.5)
[2016-08-19 17:32] LABS: MANUAL DIFF YES %
[2016-08-19 17:33] LABS: BUN (BLOOD UREA NITROGEN) 11 MG/DL (6-23); CALCIUM, SERUM 9.6 MG/DL (8.5-10.4); CHLORIDE, SERUM 105 MMOL/L (96-112); CO2 (CARBON DIOXIDE) 22 MMOL/L (24-34); CREATININE 1.16 MG/DL (0.55-1.02); GFR AFRICAN AMERICAN 60 ML/MIN (>=60); GFR NON AFRICAN AMERICAN 52 ML/MIN (>=60); GLUCOSE, SERUM 177 MG/DL (60-99); PHOSPHORUS, SERUM 3.3 MG/DL (2.5-4.5); POTASSIUM, SERUM 4.5 MMOL/L (3.5-5.3); SODIUM, SERUM 136 MMOL/L (135-148)
[2016-08-19 17:45] LABS: BAND NEUTROPHILS 2 %; LYMPHOCYTES 7 %; LYMPHOCYTES ABSOLUTE (CALC) 0.94 10/3/uL (0.67-4.30); MONOCYTES 7 %; MONOCYTES ABSOLUTE (CALC) 0.94 10/3/uL (0.21-1.20); NEUTROPHILS ABSOLUTE (CALC) 11.52 10/3/uL (2.02-8.40); SEGMENTED NEUTROPHIL (0) 84 %; TOTAL NUCLEATED CELLS 100
[2016-08-19 17:46] LABS: PLATELET ESTIMATE ADQ (ADEQUATE); RBC MORPHOLOGY NORM (NORMAL)
[2016-08-19 21:48] LABS: HEMATOCRIT 25.8 % (36.0-48.0); HEMOGLOBIN 8.1 g/dL (12.0-16.0); MEAN CORPUS HGB CONC 31.4 g/dL (32.0-36.0); MEAN CORPUSCULAR HEMOGLOB 28.5 pg (26.0-34.0); MEAN CORPUSCULAR VOLUME 90.8 fL (80-100); MEAN PLATELET VOLUME 11.4 fL (9.2-13.0); NUCLEATED RED BLOOD CELLS 11.3 /100WBC (0-0); PLATELET COUNT 193 10/3/uL (150-400); RBC DISTRIBUTION WIDTH 15.6 % (12.0-16.0); RED CELL COUNT 2.84 10/6/uL (4.0-5.6); WHITE BLOOD CELLS 14.2 10/3/uL (4.5-10.5)
[2016-08-19 21:52] LABS: INTERNATIONAL NORMAL RATI 1.2 UNITS (-); MANUAL DIFF YES %; PARTIAL THROMBO TIME 35.4 SEC (22.5-37.2); PROTIME (NOT ORD) 15.3 SEC (12.0-14.5)
[2016-08-19 21:55] LABS: BUN (BLOOD UREA NITROGEN) 12 MG/DL (6-23); CALCIUM, SERUM 9.4 MG/DL (8.5-10.4); CHLORIDE, SERUM 106 MMOL/L (96-112); CO2 (CARBON DIOXIDE) 21 MMOL/L (24-34); CREATININE 1.31 MG/DL (0.55-1.02); GFR AFRICAN AMERICAN 52 ML/MIN (>=60); GFR NON AFRICAN AMERICAN 45 ML/MIN (>=60); PHOSPHORUS, SERUM 2.5 MG/DL (2.5-4.5); POTASSIUM, SERUM 4.1 MMOL/L (3.5-5.3); SODIUM, SERUM 135 MMOL/L (135-148)
[2016-08-19 21:56] LABS: GLUCOSE, SERUM 222 MG/DL (60-99)
[2016-08-19 22:20] LABS: BAND NEUTROPHILS 2 %; IMMATURE GRANS ABSOLUTE (CALC) 0.14 10/3/uL (0.0-0.11); LYMPHOCYTES 8 %; LYMPHOCYTES ABSOLUTE (CALC) 1.14 10/3/uL (0.67-4.30); METAMYELOCYTES 1 %; MONOCYTES 9 %; MONOCYTES ABSOLUTE (CALC) 1.28 10/3/uL (0.21-1.20); NEUTROPHILS ABSOLUTE (CALC) 11.64 10/3/uL (2.02-8.40); PLATELET ESTIMATE ADQ (ADEQUATE); RBC MORPHOLOGY NORM (NORMAL); SEGMENTED NEUTROPHIL (0) 80 %; TOTAL NUCLEATED CELLS 100
[2016-08-19 22:24] LABS: ASCORBIC ACID (UR NOT ORDER) NEG (NEG); BILIRUBIN, URINE NEGATIVE (NEG); KETONE, URINE NEGATIVE (NEG); LEUKOCYTE ESTERASE(NOT OR LARGE (NEG)
[2016-08-19 22:25] LABS: WBC (NOT ORDERED) (RFLEX) > 182 (0-5)
[2016-08-20 03:34] LABS: BE (BASE EXCESS) -3.4 MEQ/L (0 +/- 2.5); CARBOXYHEMOGLOBIN 0.9 % (0-3); HCO3 (ACTUAL BICARBONATE) 21.2 MEQ/L (23-27); HEMOBLOGIN CONTENT 9.1 G/DL (12-16); INSTRUMENT SERIAL # 11843; METHEMOGLOBIN 0.4 % (0-3); O2 CONTENT 12.2 VOL% (18-24); OPERATOR ID 32193; PCO2 (CO2 TENSION) 36 MMHG (35-45); PO2 (O2 TENSION) 83 MMHG (79-93); SAMPLE Arterial; pH 7.39 (7.37-7.43)
[2016-08-20 03:55] LABS: HEMATOCRIT 25.4 % (36.0-48.0); HEMOGLOBIN 8.1 g/dL (12.0-16.0); MEAN CORPUS HGB CONC 31.9 g/dL (32.0-36.0); MEAN CORPUSCULAR HEMOGLOB 28.8 pg (26.0-34.0); MEAN CORPUSCULAR VOLUME 90.4 fL (80-100); NUCLEATED RED BLOOD CELLS 10.1 /100WBC (0-0); PLATELET COUNT 196 10/3/uL (150-400); RBC DISTRIBUTION WIDTH 15.4 % (12.0-16.0); RED CELL COUNT 2.81 10/6/uL (4.0-5.6); WHITE BLOOD CELLS 15.2 10/3/uL (4.5-10.5)
[2016-08-20 03:56] LABS: MANUAL DIFF YES %
[2016-08-20 03:58] LABS: BUN (BLOOD UREA NITROGEN) 9 MG/DL (6-23); CALCIUM, SERUM 9.9 MG/DL (8.5-10.4); CHLORIDE, SERUM 106 MMOL/L (96-112); CO2 (CARBON DIOXIDE) 22 MMOL/L (24-34); CREATININE 1.25 MG/DL (0.55-1.02); GFR AFRICAN AMERICAN 55 ML/MIN (>=60); GFR NON AFRICAN AMERICAN 47 ML/MIN (>=60); GLUCOSE, SERUM 115 MG/DL (60-99); PHOSPHORUS, SERUM 2.3 MG/DL (2.5-4.5); POTASSIUM, SERUM 3.7 MMOL/L (3.5-5.3); SODIUM, SERUM 138 MMOL/L (135-148)
[2016-08-20 04:42] LABS: BAND NEUTROPHILS 3 %; IMMATURE GRANS ABSOLUTE (CALC) 0.15 10/3/uL (0.0-0.11); LYMPHOCYTES 12 %; LYMPHOCYTES ABSOLUTE (CALC) 1.82 10/3/uL (0.67-4.30); MONOCYTES 8 %; MONOCYTES ABSOLUTE (CALC) 1.22 10/3/uL (0.21-1.20); MYELOCYTES 1 %; NEUTROPHILS ABSOLUTE (CALC) 12.01 10/3/uL (2.02-8.40); RBC MORPHOLOGY NORM (NORMAL); SEGMENTED NEUTROPHIL (0) 76 %; TOTAL NUCLEATED CELLS 100
[2016-08-20 04:43] LABS: PLATELET ESTIMATE ADQ (ADEQUATE)
[2016-08-20 10:27] LABS: HEMATOCRIT 25.2 % (36.0-48.0); HEMOGLOBIN 8.1 g/dL (12.0-16.0); MEAN CORPUS HGB CONC 32.1 g/dL (32.0-36.0); MEAN CORPUSCULAR HEMOGLOB 29.1 pg (26.0-34.0); MEAN CORPUSCULAR VOLUME 90.6 fL (80-100); MEAN PLATELET VOLUME 11.4 fL (9.2-13.0); NUCLEATED RED BLOOD CELLS 7.5 /100WBC (0-0); PLATELET COUNT 195 10/3/uL (150-400); RBC DISTRIBUTION WIDTH 15.7 % (12.0-16.0); RED CELL COUNT 2.78 10/6/uL (4.0-5.6); WHITE BLOOD CELLS 15.8 10/3/uL (4.5-10.5)
[2016-08-20 10:28] LABS: MANUAL DIFF YES %
[2016-08-20 10:29] LABS: BUN (BLOOD UREA NITROGEN) 10 MG/DL (6-23); CALCIUM, SERUM 9.8 MG/DL (8.5-10.4); CHLORIDE, SERUM 104 MMOL/L (96-112); CO2 (CARBON DIOXIDE) 24 MMOL/L (24-34); CREATININE 1.26 MG/DL (0.55-1.02); GFR AFRICAN AMERICAN 54 ML/MIN (>=60); GFR NON AFRICAN AMERICAN 47 ML/MIN (>=60); PHOSPHORUS, SERUM 2.8 MG/DL (2.5-4.5); POTASSIUM, SERUM 3.9 MMOL/L (3.5-5.3); SODIUM, SERUM 136 MMOL/L (135-148)
[2016-08-20 10:30] LABS: GLUCOSE, SERUM 244 MG/DL (60-99)
[2016-08-20 10:42] LABS: BAND NEUTROPHILS 2 %; IMMATURE GRANS ABSOLUTE (CALC) 0.47 10/3/uL (0.0-0.11); LYMPHOCYTES 6 %; LYMPHOCYTES ABSOLUTE (CALC) 0.95 10/3/uL (0.67-4.30); METAMYELOCYTES 2 %; MONOCYTES 12 %; MYELOCYTES 1 %; NEUTROPHILS ABSOLUTE (CALC) 12.48 10/3/uL (2.02-8.40); PLATELET ESTIMATE ADQ (ADEQUATE); SEGMENTED NEUTROPHIL (0) 77 %; TOTAL NUCLEATED CELLS 100
[2016-08-20 10:43] LABS: POLYCHROMASIA 2+ (5-10/OIF) (0-1/OIF)
[2016-08-20 16:49] LABS: BASOPHILS 0.2 %; BASOPHILS ABSOLUTE 0.03 10/3/uL (0.0-0.16); EOSINOPHILS 0.1 %; EOSINOPHILS ABSOLUTE 0.02 10/3/uL (0.0-0.53); HEMATOCRIT 26.9 % (36.0-48.0); HEMOGLOBIN 8.4 g/dL (12.0-16.0); IMMATURE GRANULOCYTES 2.7 %; IMMATURE GRANULOCYTES ABSOLUTE 0.42 10/3/uL (0.0-0.11); LYMPHOCYTES ABSOLUTE 1.11 10/3/uL (0.67-4.30); MEAN CORPUS HGB CONC 31.2 g/dL (32.0-36.0); MEAN CORPUSCULAR HEMOGLOB 28.5 pg (26.0-34.0); MEAN CORPUSCULAR VOLUME 91.2 fL (80-100); MEAN PLATELET VOLUME 11.2 fL (9.2-13.0); MONOCYTES 6.6 %; MONOCYTES ABSOLUTE 1.04 10/3/uL (0.21-1.20); NEUTROPHILS 83.4 %; NUCLEATED RED BLOOD CELLS 3.1 /100WBC (0-0); PLATELET COUNT 203 10/3/uL (150-400); RBC DISTRIBUTION WIDTH 15.8 % (12.0-16.0); RED CELL COUNT 2.95 10/6/uL (4.0-5.6); WHITE BLOOD CELLS 15.8 10/3/uL (4.5-10.5)
[2016-08-20 16:51] LABS: BUN (BLOOD UREA NITROGEN) 11 MG/DL (6-23); CALCIUM, SERUM 9.5 MG/DL (8.5-10.4); CHLORIDE, SERUM 106 MMOL/L (96-112); CO2 (CARBON DIOXIDE) 21 MMOL/L (24-34); CREATININE 1.19 MG/DL (0.55-1.02); GFR AFRICAN AMERICAN 58 ML/MIN (>=60); GFR NON AFRICAN AMERICAN 50 ML/MIN (>=60); GLUCOSE, SERUM 276 MG/DL (60-99); MANUAL DIFF NO %; PHOSPHORUS, SERUM 2.9 MG/DL (2.5-4.5); POTASSIUM, SERUM 4.2 MMOL/L (3.5-5.3); SODIUM, SERUM 135 MMOL/L (135-148)
[2016-08-20 22:29] LABS: BUN (BLOOD UREA NITROGEN) 13 MG/DL (6-23); CHLORIDE, SERUM 106 MMOL/L (96-112); CO2 (CARBON DIOXIDE) 21 MMOL/L (24-34); CREATININE 1.23 MG/DL (0.55-1.02); GFR AFRICAN AMERICAN 56 ML/MIN (>=60); GFR NON AFRICAN AMERICAN 48 ML/MIN (>=60); GLUCOSE, SERUM 255 MG/DL (60-99); POTASSIUM, SERUM 3.8 MMOL/L (3.5-5.3); SODIUM, SERUM 139 MMOL/L (135-148)
[2016-08-20 22:31] LABS: CALCIUM, SERUM 8.6 MG/DL (8.5-10.4)
[2016-08-20 22:32] LABS: HEMATOCRIT 26.3 % (36.0-48.0); HEMOGLOBIN 8.3 g/dL (12.0-16.0); MANUAL DIFF YES %; MEAN CORPUS HGB CONC 31.6 g/dL (32.0-36.0); MEAN CORPUSCULAR HEMOGLOB 28.7 pg (26.0-34.0); MEAN PLATELET VOLUME 10.9 fL (9.2-13.0); NUCLEATED RED BLOOD CELLS 4.6 /100WBC (0-0); PLATELET COUNT 217 10/3/uL (150-400); RBC DISTRIBUTION WIDTH 15.9 % (12.0-16.0); RED CELL COUNT 2.89 10/6/uL (4.0-5.6); WHITE BLOOD CELLS 16.4 10/3/uL (4.5-10.5)
[2016-08-20 22:52] LABS: LYMPHOCYTES 7 %; LYMPHOCYTES ABSOLUTE (CALC) 1.15 10/3/uL (0.67-4.30); MONOCYTES 4 %; MONOCYTES ABSOLUTE (CALC) 0.66 10/3/uL (0.21-1.20); PLATELET ESTIMATE ADQ (ADEQUATE); RBC MORPHOLOGY NORM (NORMAL); SEGMENTED NEUTROPHIL (0) 89 %; TOTAL NUCLEATED CELLS 100
[2016-08-21 03:52] LABS: HEMATOCRIT 25.1 % (36.0-48.0); HEMOGLOBIN 8.1 g/dL (12.0-16.0); MEAN CORPUS HGB CONC 32.3 g/dL (32.0-36.0); MEAN CORPUSCULAR HEMOGLOB 29.2 pg (26.0-34.0); MEAN CORPUSCULAR VOLUME 90.6 fL (80-100); MEAN PLATELET VOLUME 11.1 fL (9.2-13.0); NUCLEATED RED BLOOD CELLS 5.6 /100WBC (0-0); PLATELET COUNT 214 10/3/uL (150-400); RBC DISTRIBUTION WIDTH 16.2 % (12.0-16.0); RED CELL COUNT 2.77 10/6/uL (4.0-5.6); WHITE BLOOD CELLS 18.2 10/3/uL (4.5-10.5)
[2016-08-21 03:53] LABS: MANUAL DIFF YES %
[2016-08-21 04:02] LABS: EOSINOPHILS 2 %; EOSINOPHILS ABSOLUTE (CALC) 0.36 10/3/uL (0.0-0.53); IMMATURE GRANS ABSOLUTE (CALC) 0.18 10/3/uL (0.0-0.11); LYMPHOCYTES 8 %; LYMPHOCYTES ABSOLUTE (CALC) 1.46 10/3/uL (0.67-4.30); MONOCYTES 7 %; MONOCYTES ABSOLUTE (CALC) 1.27 10/3/uL (0.21-1.20); MYELOCYTES 1 %; NEUTROPHILS ABSOLUTE (CALC) 14.92 10/3/uL (2.02-8.40); SEGMENTED NEUTROPHIL (0) 82 %; TOTAL NUCLEATED CELLS 100
[2016-08-21 04:03] LABS: PLATELET ESTIMATE ADQ (ADEQUATE); RBC MORPHOLOGY NORM (NORMAL)
[2016-08-21 04:18] LABS: BUN (BLOOD UREA NITROGEN) 10 MG/DL (6-23); CALCIUM, SERUM 9.1 MG/DL (8.5-10.4); CHLORIDE, SERUM 105 MMOL/L (96-112); CO2 (CARBON DIOXIDE) 22 MMOL/L (24-34); CREATININE 1.16 MG/DL (0.55-1.02); GFR AFRICAN AMERICAN 60 ML/MIN (>=60); GFR NON AFRICAN AMERICAN 52 ML/MIN (>=60); POTASSIUM, SERUM 3.7 MMOL/L (3.5-5.3); SODIUM, SERUM 140 MMOL/L (135-148)
[2016-08-21 04:19] LABS: GLUCOSE, SERUM 165 MG/DL (60-99); PHOSPHORUS, SERUM 1.4 MG/DL (2.5-4.5)
[2016-08-21 10:23] LABS: HEMATOCRIT 24.8 % (36.0-48.0); MEAN CORPUS HGB CONC 32.3 g/dL (32.0-36.0); MEAN CORPUSCULAR HEMOGLOB 29.4 pg (26.0-34.0); MEAN CORPUSCULAR VOLUME 91.2 fL (80-100); MEAN PLATELET VOLUME 11.3 fL (9.2-13.0); NUCLEATED RED BLOOD CELLS 3.8 /100WBC (0-0); PLATELET COUNT 212 10/3/uL (150-400); RBC DISTRIBUTION WIDTH 16.7 % (12.0-16.0); RED CELL COUNT 2.72 10/6/uL (4.0-5.6); WHITE BLOOD CELLS 18.2 10/3/uL (4.5-10.5)
[2016-08-21 10:24] LABS: MANUAL DIFF YES %
[2016-08-21 10:35] LABS: BUN (BLOOD UREA NITROGEN) 9 MG/DL (6-23); CALCIUM, SERUM 8.9 MG/DL (8.5-10.4); CHLORIDE, SERUM 107 MMOL/L (96-112); CO2 (CARBON DIOXIDE) 23 MMOL/L (24-34); CREATININE 1.18 MG/DL (0.55-1.02); GFR AFRICAN AMERICAN 59 ML/MIN (>=60); GFR NON AFRICAN AMERICAN 51 ML/MIN (>=60); POTASSIUM, SERUM 3.6 MMOL/L (3.5-5.3); SODIUM, SERUM 140 MMOL/L (135-148)
[2016-08-21 10:36] LABS: GLUCOSE, SERUM 205 MG/DL (60-99); PHOSPHORUS, SERUM 5.6 MG/DL (2.5-4.5)
[2016-08-21 10:55] LABS: EOSINOPHILS 1 %; EOSINOPHILS ABSOLUTE (CALC) 0.18 10/3/uL (0.0-0.53); IMMATURE GRANS ABSOLUTE (CALC) 0.36 10/3/uL (0.0-0.11); LYMPHOCYTES 8 %; LYMPHOCYTES ABSOLUTE (CALC) 1.46 10/3/uL (0.67-4.30); METAMYELOCYTES 2 %; MONOCYTES 4 %; MONOCYTES ABSOLUTE (CALC) 0.73 10/3/uL (0.21-1.20); NEUTROPHILS ABSOLUTE (CALC) 15.47 10/3/uL (2.02-8.40); PLATELET ESTIMATE ADQ (ADEQUATE); SEGMENTED NEUTROPHIL (0) 85 %; TOTAL NUCLEATED CELLS 100
[2016-08-21 10:56] LABS: POLYCHROMASIA 1+ (2-5/OIF) (0-1/OIF); RBC MORPHOLOGY NORM (NORMAL)
[2016-08-21 17:09] LABS: HEMOGLOBIN 8.6 g/dL (12.0-16.0); MEAN CORPUS HGB CONC 31.9 g/dL (32.0-36.0); MEAN CORPUSCULAR HEMOGLOB 29.1 pg (26.0-34.0); MEAN CORPUSCULAR VOLUME 91.2 fL (80-100); MEAN PLATELET VOLUME 11.6 fL (9.2-13.0); NUCLEATED RED BLOOD CELLS 2.5 /100WBC (0-0); PLATELET COUNT 236 10/3/uL (150-400); RED CELL COUNT 2.96 10/6/uL (4.0-5.6); WHITE BLOOD CELLS 19.9 10/3/uL (4.5-10.5)
[2016-08-21 17:10] LABS: MANUAL DIFF YES %
[2016-08-21 17:19] LABS: BUN (BLOOD UREA NITROGEN) 11 MG/DL (6-23); CALCIUM, SERUM 9.2 MG/DL (8.5-10.4); CHLORIDE, SERUM 104 MMOL/L (96-112); CO2 (CARBON DIOXIDE) 21 MMOL/L (24-34); CREATININE 1.18 MG/DL (0.55-1.02); GFR AFRICAN AMERICAN 59 ML/MIN (>=60); GFR NON AFRICAN AMERICAN 51 ML/MIN (>=60); GLUCOSE, SERUM 277 MG/DL (60-99); PHOSPHORUS, SERUM 2.1 MG/DL (2.5-4.5); POTASSIUM, SERUM 4.4 MMOL/L (3.5-5.3); SODIUM, SERUM 136 MMOL/L (135-148)
[2016-08-21 17:33] LABS: ANISOCYTOSIS 1+ (5-10/OIF) (0-5/OIF); BAND NEUTROPHILS 1 %; LYMPHOCYTES 6 %; LYMPHOCYTES ABSOLUTE (CALC) 1.19 10/3/uL (0.67-4.30); METAMYELOCYTES 1 %; MONOCYTES 5 %; NEUTROPHILS ABSOLUTE (CALC) 17.51 10/3/uL (2.02-8.40); PLATELET ESTIMATE ADQ (ADEQUATE); SEGMENTED NEUTROPHIL (0) 87 %; TOTAL NUCLEATED CELLS 100
[2016-08-21 17:34] LABS: POIKILOCYTOSIS 1+ (5-10/OIF) (0-5/OIF); POLYCHROMASIA 1+ (2-5/OIF) (0-1/OIF); SCHISTOCYTES OCC (0-2/OIF)
[2016-08-21 22:26] LABS: HEMATOCRIT 27.4 % (36.0-48.0); HEMOGLOBIN 8.6 g/dL (12.0-16.0); MEAN CORPUS HGB CONC 31.4 g/dL (32.0-36.0); MEAN CORPUSCULAR HEMOGLOB 28.6 pg (26.0-34.0); MEAN PLATELET VOLUME 11.2 fL (9.2-13.0); NUCLEATED RED BLOOD CELLS 4.2 /100WBC (0-0); PLATELET COUNT 257 10/3/uL (150-400); RBC DISTRIBUTION WIDTH 16.8 % (12.0-16.0); RED CELL COUNT 3.01 10/6/uL (4.0-5.6)
[2016-08-21 22:30] LABS: MANUAL DIFF YES %
[2016-08-21 22:31] LABS: BUN (BLOOD UREA NITROGEN) 9 MG/DL (6-23); CALCIUM, SERUM 9.3 MG/DL (8.5-10.4); CHLORIDE, SERUM 107 MMOL/L (96-112); CO2 (CARBON DIOXIDE) 20 MMOL/L (24-34); CREATININE 1.18 MG/DL (0.55-1.02); GFR AFRICAN AMERICAN 59 ML/MIN (>=60); GFR NON AFRICAN AMERICAN 51 ML/MIN (>=60); POTASSIUM, SERUM 3.8 MMOL/L (3.5-5.3); SODIUM, SERUM 141 MMOL/L (135-148)
[2016-08-21 22:36] LABS: GLUCOSE, SERUM 202 MG/DL (60-99); PHOSPHORUS, SERUM 2.8 MG/DL (2.5-4.5)
[2016-08-21 22:58] LABS: ANISOCYTOSIS 1+ (5-10/OIF) (0-5/OIF); BAND NEUTROPHILS 2 %; IMMATURE GRANS ABSOLUTE (CALC) 0.63 10/3/uL (0.0-0.11); LYMPHOCYTES 13 %; LYMPHOCYTES ABSOLUTE (CALC) 2.73 10/3/uL (0.67-4.30); MACROCYTES 1+ (5-10/OIF) (0-5/OIF); METAMYELOCYTES 3 %; MONOCYTES 5 %; MONOCYTES ABSOLUTE (CALC) 1.05 10/3/uL (0.21-1.20); NEUTROPHILS ABSOLUTE (CALC) 16.59 10/3/uL (2.02-8.40); PLATELET ESTIMATE ADQ (ADEQUATE); SEGMENTED NEUTROPHIL (0) 77 %; TOTAL NUCLEATED CELLS 100
[2016-08-21 22:59] LABS: POLYCHROMASIA 1+ (2-5/OIF) (0-1/OIF)
[2016-08-22 03:44] LABS: BE (BASE EXCESS) -3.8 MEQ/L (0 +/- 2.5); CARBOXYHEMOGLOBIN 1.1 % (0-3); HCO3 (ACTUAL BICARBONATE) 19.7 MEQ/L (23-27); HEMOBLOGIN CONTENT 9.1 G/DL (12-16); INSTRUMENT SERIAL # 11843; METHEMOGLOBIN 0.4 % (0-3); O2 CONTENT 12.1 VOL% (18-24); OPERATOR ID 17370; PCO2 (CO2 TENSION) 30 MMHG (35-45); PO2 (O2 TENSION) 77 MMHG (79-93); SAMPLE Arterial; pH 7.44 (7.37-7.43)
[2016-08-22 03:52] LABS: HEMATOCRIT 25.7 % (36.0-48.0); HEMOGLOBIN 8.3 g/dL (12.0-16.0); MANUAL DIFF YES %; MEAN CORPUS HGB CONC 32.3 g/dL (32.0-36.0); MEAN CORPUSCULAR HEMOGLOB 29.4 pg (26.0-34.0); MEAN CORPUSCULAR VOLUME 91.1 fL (80-100); MEAN PLATELET VOLUME 10.8 fL (9.2-13.0); NUCLEATED RED BLOOD CELLS 3.4 /100WBC (0-0); PLATELET COUNT 234 10/3/uL (150-400); RBC DISTRIBUTION WIDTH 16.7 % (12.0-16.0); RED CELL COUNT 2.82 10/6/uL (4.0-5.6); WHITE BLOOD CELLS 18.3 10/3/uL (4.5-10.5)
[2016-08-22 04:03] LABS: EOSINOPHILS 1 %; EOSINOPHILS ABSOLUTE (CALC) 0.18 10/3/uL (0.0-0.53); IMMATURE GRANS ABSOLUTE (CALC) 0.73 10/3/uL (0.0-0.11); LYMPHOCYTES 5 %; LYMPHOCYTES ABSOLUTE (CALC) 0.92 10/3/uL (0.67-4.30); METAMYELOCYTES 1 %; MONOCYTES 3 %; MONOCYTES ABSOLUTE (CALC) 0.55 10/3/uL (0.21-1.20); MYELOCYTES 3 %; NEUTROPHILS ABSOLUTE (CALC) 15.92 10/3/uL (2.02-8.40); PLATELET ESTIMATE ADQ (ADEQUATE); RBC MORPHOLOGY NORM (NORMAL); SEGMENTED NEUTROPHIL (0) 87 %; TOTAL NUCLEATED CELLS 100
[2016-08-22 04:10] LABS: BUN (BLOOD UREA NITROGEN) 7 MG/DL (6-23); CALCIUM, SERUM 9.3 MG/DL (8.5-10.4); CHLORIDE, SERUM 108 MMOL/L (96-112); CO2 (CARBON DIOXIDE) 23 MMOL/L (24-34); CREATININE 1.01 MG/DL (0.55-1.02); GFR AFRICAN AMERICAN 71 ML/MIN (>=60); GFR NON AFRICAN AMERICAN 61 ML/MIN (>=60); POTASSIUM, SERUM 3.6 MMOL/L (3.5-5.3); SODIUM, SERUM 142 MMOL/L (135-148)
[2016-08-22 04:16] LABS: GLUCOSE, SERUM 139 MG/DL (60-99); PHOSPHORUS, SERUM 1.8 MG/DL (2.5-4.5)
[2016-08-22 10:13] LABS: BUN (BLOOD UREA NITROGEN) 6 MG/DL (6-23); CALCIUM, SERUM 8.9 MG/DL (8.5-10.4); CHLORIDE, SERUM 105 MMOL/L (96-112); CO2 (CARBON DIOXIDE) 26 MMOL/L (24-34); CREATININE 1.13 MG/DL (0.55-1.02); GFR AFRICAN AMERICAN 62 ML/MIN (>=60); GFR NON AFRICAN AMERICAN 54 ML/MIN (>=60); HEMATOCRIT 26.7 % (36.0-48.0); HEMOGLOBIN 8.4 g/dL (12.0-16.0); MEAN CORPUS HGB CONC 31.5 g/dL (32.0-36.0); MEAN CORPUSCULAR HEMOGLOB 28.9 pg (26.0-34.0); MEAN CORPUSCULAR VOLUME 91.8 fL (80-100); MEAN PLATELET VOLUME 11.4 fL (9.2-13.0); NUCLEATED RED BLOOD CELLS 2.3 /100WBC (0-0); PLATELET COUNT 248 10/3/uL (150-400); POTASSIUM, SERUM 3.9 MMOL/L (3.5-5.3); RBC DISTRIBUTION WIDTH 17.1 % (12.0-16.0); RED CELL COUNT 2.91 10/6/uL (4.0-5.6); SODIUM, SERUM 139 MMOL/L (135-148); WHITE BLOOD CELLS 18.2 10/3/uL (4.5-10.5)
[2016-08-22 10:14] LABS: GLUCOSE, SERUM 186 MG/DL (60-99)
[2016-08-22 10:15] LABS: MANUAL DIFF YES %
[2016-08-22 10:56] LABS: ANISOCYTOSIS 1+ (5-10/OIF) (0-5/OIF); BAND NEUTROPHILS 2 %; EOSINOPHILS 1 %; EOSINOPHILS ABSOLUTE (CALC) 0.18 10/3/uL (0.0-0.53); IMMATURE GRANS ABSOLUTE (CALC) 0.36 10/3/uL (0.0-0.11); LYMPHOCYTES 11 %; MACROCYTES 1+ (5-10/OIF) (0-5/OIF); METAMYELOCYTES 1 %; MONOCYTES 7 %; MONOCYTES ABSOLUTE (CALC) 1.27 10/3/uL (0.21-1.20); MYELOCYTES 1 %; NUCLEATED RED BLOOD CELLS 2 /100WBC (0); PLASMA CELL 1 % (0); POLYCHROMASIA 2+ (5-10/OIF) (0-1/OIF); SEGMENTED NEUTROPHIL (0) 76 %; TOTAL NUCLEATED CELLS 100
[2016-08-22 10:57] LABS: PLATELET ESTIMATE ADQ (ADEQUATE); POIKILOCYTOSIS 1+ (5-10/OIF) (0-5/OIF); TEARDROP SHAPED RBCS OCC (0-2/OIF)
[2016-08-22 15:34] LABS: ASCORBIC ACID (UR NOT ORDER) NEG (NEG); BILIRUBIN, URINE NEGATIVE (NEG); KETONE, URINE NEGATIVE (NEG); LEUKOCYTE ESTERASE(NOT OR LARGE (NEG); WBC (NOT ORDERED) (RFLEX) > 182 (0-5)
[2016-08-23 03:55] LABS: BASOPHILS 0.2 %; BASOPHILS ABSOLUTE 0.03 10/3/uL (0.0-0.16); EOSINOPHILS ABSOLUTE 0.16 10/3/uL (0.0-0.53); IMMATURE GRANULOCYTES 2.5 %; IMMATURE GRANULOCYTES ABSOLUTE 0.39 10/3/uL (0.0-0.11); LYMPHOCYTES 16.3 %; LYMPHOCYTES ABSOLUTE 2.52 10/3/uL (0.67-4.30); MANUAL DIFF NO %; MEAN CORPUSCULAR HEMOGLOB 28.9 pg (26.0-34.0); MEAN CORPUSCULAR VOLUME 90.3 fL (80-100); MEAN PLATELET VOLUME 10.7 fL (9.2-13.0); MONOCYTES 8.5 %; MONOCYTES ABSOLUTE 1.32 10/3/uL (0.21-1.20); NEUTROPHILS 71.5 %; NEUTROPHILS ABSOLUTE 11.06 10/3/uL (2.02-8.40); NUCLEATED RED BLOOD CELLS 1.5 /100WBC (0-0); PLATELET COUNT 233 10/3/uL (150-400); RED CELL COUNT 2.77 10/6/uL (4.0-5.6); WHITE BLOOD CELLS 15.5 10/3/uL (4.5-10.5)
[2016-08-23 03:58] LABS: BUN (BLOOD UREA NITROGEN) 20 MG/DL (6-23); CALCIUM, SERUM 9.3 MG/DL (8.5-10.4); CHLORIDE, SERUM 106 MMOL/L (96-112); CO2 (CARBON DIOXIDE) 22 MMOL/L (24-34); CREATININE 2.14 MG/DL (0.55-1.02); GFR AFRICAN AMERICAN 29 ML/MIN (>=60); GFR NON AFRICAN AMERICAN 25 ML/MIN (>=60); GLUCOSE, SERUM 191 MG/DL (60-99); POTASSIUM, SERUM 4.6 MMOL/L (3.5-5.3); SODIUM, SERUM 140 MMOL/L (135-148)
[2016-08-23 14:14] LABS: HEMATOCRIT 25.1 % (36.0-48.0); HEMOGLOBIN 8.2 g/dL (12.0-16.0)
[2016-08-23 19:36] LABS: HEMOGLOBIN 9.6 g/dL (12.0-16.0)
[2016-08-23 19:38] LABS: HEMATOCRIT 29.5 % (36.0-48.0)
[2016-08-23 19:57] LABS: CHLORIDE, SERUM 105 MMOL/L (96-112); CO2 (CARBON DIOXIDE) 23 MMOL/L (24-34); SODIUM, SERUM 138 MMOL/L (135-148)
[2016-08-23 19:58] LABS: BUN (BLOOD UREA NITROGEN) 29 MG/DL (6-23); CALCIUM, SERUM 8.3 MG/DL (8.5-10.4); CREATININE 3.07 MG/DL (0.55-1.02); GFR AFRICAN AMERICAN 19 ML/MIN (>=60); GFR NON AFRICAN AMERICAN 16 ML/MIN (>=60); GLUCOSE, SERUM 264 MG/DL (60-99)
[2016-08-24 03:41] LABS: HEMATOCRIT 27.7 % (36.0-48.0); MEAN CORPUS HGB CONC 32.5 g/dL (32.0-36.0); MEAN CORPUSCULAR HEMOGLOB 28.1 pg (26.0-34.0); NUCLEATED RED BLOOD CELLS 2.5 /100WBC (0-0); PLATELET COUNT 182 10/3/uL (150-400); RBC DISTRIBUTION WIDTH 17.2 % (12.0-16.0); WHITE BLOOD CELLS 19.9 10/3/uL (4.5-10.5)
[2016-08-24 03:43] LABS: MANUAL DIFF YES %; MEAN CORPUSCULAR VOLUME 86.6 fL (80-100)
[2016-08-24 03:59] LABS: ALBUMIN 2.9 G/DL (3.5-5.0); CHLORIDE, SERUM 105 MMOL/L (96-112); CO2 (CARBON DIOXIDE) 21 MMOL/L (24-34); CREATININE 3.36 MG/DL (0.55-1.02); GFR AFRICAN AMERICAN 17 ML/MIN (>=60); GFR NON AFRICAN AMERICAN 14 ML/MIN (>=60); GLUCOSE, SERUM 246 MG/DL (60-99); POTASSIUM, SERUM 5.7 MMOL/L (3.5-5.3); SODIUM, SERUM 137 MMOL/L (135-148)
[2016-08-24 04:02] LABS: BUN (BLOOD UREA NITROGEN) 36 MG/DL (6-23)
[2016-08-24 04:03] LABS: PHOSPHORUS, SERUM 5.4 MG/DL (2.5-4.5)
[2016-08-24 04:05] LABS: BAND NEUTROPHILS 5 %; LYMPHOCYTES 3 %; METAMYELOCYTES 1 %; PLATELET ESTIMATE ADQ (ADEQUATE); SEGMENTED NEUTROPHIL (0) 91 %; TOTAL NUCLEATED CELLS 100
[2016-08-24 04:06] LABS: ANISOCYTOSIS 1+ (5-10/OIF) (0-5/OIF); HYPOCHROMIA 1+ (3-10/OIF) (0-2/OIF); MACROCYTES 1+ (5-10/OIF) (0-5/OIF); MICROCYTES 1+ (5-10/OIF) (0-5/OIF); POLYCHROMASIA 1+ (2-5/OIF) (0-1/OIF)
[2016-08-25 04:40] LABS: BASOPHILS 0.1 %; BASOPHILS ABSOLUTE 0.02 10/3/uL (0.0-0.16); EOSINOPHILS 0.4 %; EOSINOPHILS ABSOLUTE 0.08 10/3/uL (0.0-0.53); HEMATOCRIT 22.4 % (36.0-48.0); HEMOGLOBIN 7.3 g/dL (12.0-16.0); IMMATURE GRANULOCYTES 0.8 %; IMMATURE GRANULOCYTES ABSOLUTE 0.14 10/3/uL (0.0-0.11); LYMPHOCYTES 11.6 %; LYMPHOCYTES ABSOLUTE 2.14 10/3/uL (0.67-4.30); MANUAL DIFF NO %; MEAN CORPUS HGB CONC 32.6 g/dL (32.0-36.0); MEAN CORPUSCULAR HEMOGLOB 28.4 pg (26.0-34.0); MEAN CORPUSCULAR VOLUME 87.2 fL (80-100); MONOCYTES 8.7 %; NEUTROPHILS 78.4 %; NEUTROPHILS ABSOLUTE 14.41 10/3/uL (2.02-8.40); NUCLEATED RED BLOOD CELLS 1.1 /100WBC (0-0); PLATELET COUNT 175 10/3/uL (150-400); RBC DISTRIBUTION WIDTH 17.2 % (12.0-16.0); RED CELL COUNT 2.57 10/6/uL (4.0-5.6); WHITE BLOOD CELLS 18.4 10/3/uL (4.5-10.5)
[2016-08-25 06:57] LABS: ALBUMIN 2.9 G/DL (3.5-5.0); CALCIUM, SERUM 7.8 MG/DL (8.5-10.4); CHLORIDE, SERUM 104 MMOL/L (96-112); CREATININE 3.43 MG/DL (0.55-1.02); GFR AFRICAN AMERICAN 16 ML/MIN (>=60); GFR NON AFRICAN AMERICAN 14 ML/MIN (>=60); SODIUM, SERUM 141 MMOL/L (135-148)
[2016-08-25 06:58] LABS: BUN (BLOOD UREA NITROGEN) 29 MG/DL (6-23); CO2 (CARBON DIOXIDE) 28 MMOL/L (24-34); GLUCOSE, SERUM 176 MG/DL (60-99); POTASSIUM, SERUM 3.9 MMOL/L (3.5-5.3)
[2016-08-25 10:09] LABS: HEPATITIS B SURFACE ANTIGEN NON-REACTIVE (NON-REACT)
[2016-08-25 10:30] LABS: HEPATITIS B CORE AB IGM NON-REACTIVE (NON-REAC); HEPATITIS C ANTIBODY NON-REACTIVE (NON-REACT)
[2016-08-25 10:31] LABS: HIV COMBO NON-REACTIVE (NON REAC)
[2016-08-25 10:32] LABS: HEP A ANTIBODY IGM NON-REACTIVE (NON-REACT)
[2016-08-26 04:41] LABS: BASOPHILS 0.1 %; BASOPHILS ABSOLUTE 0.02 10/3/uL (0.0-0.16); EOSINOPHILS 0.7 %; EOSINOPHILS ABSOLUTE 0.13 10/3/uL (0.0-0.53); HEMATOCRIT 22.4 % (36.0-48.0); HEMOGLOBIN 7.3 g/dL (12.0-16.0); IMMATURE GRANULOCYTES ABSOLUTE 0.18 10/3/uL (0.0-0.11); LYMPHOCYTES 13.2 %; LYMPHOCYTES ABSOLUTE 2.35 10/3/uL (0.67-4.30); MEAN CORPUS HGB CONC 32.6 g/dL (32.0-36.0); MEAN CORPUSCULAR HEMOGLOB 29.1 pg (26.0-34.0); MEAN CORPUSCULAR VOLUME 89.2 fL (80-100); MEAN PLATELET VOLUME 10.7 fL (9.2-13.0); MONOCYTES 10.6 %; MONOCYTES ABSOLUTE 1.89 10/3/uL (0.21-1.20); NEUTROPHILS 74.4 %; NEUTROPHILS ABSOLUTE 13.22 10/3/uL (2.02-8.40); PLATELET COUNT 179 10/3/uL (150-400); RBC DISTRIBUTION WIDTH 17.7 % (12.0-16.0); RED CELL COUNT 2.51 10/6/uL (4.0-5.6); WHITE BLOOD CELLS 17.8 10/3/uL (4.5-10.5)
[2016-08-26 04:42] LABS: MANUAL DIFF NO %
[2016-08-26 05:01] LABS: ALBUMIN 3.1 G/DL (3.5-5.0); CALCIUM, SERUM 7.5 MG/DL (8.5-10.4); CHLORIDE, SERUM 104 MMOL/L (96-112); CO2 (CARBON DIOXIDE) 29 MMOL/L (24-34); CREATININE 2.94 MG/DL (0.55-1.02); GFR AFRICAN AMERICAN 20 ML/MIN (>=60); GFR NON AFRICAN AMERICAN 17 ML/MIN (>=60); POTASSIUM, SERUM 4.3 MMOL/L (3.5-5.3); SODIUM, SERUM 138 MMOL/L (135-148)
[2016-08-26 05:02] LABS: BUN (BLOOD UREA NITROGEN) 22 MG/DL (6-23); GLUCOSE, SERUM 229 MG/DL (60-99); PHOSPHORUS, SERUM 1.8 MG/DL (2.5-4.5)
[2016-08-26 14:54] LABS: INTERNATIONAL NORMAL RATI 1.2 UNITS (-); PROTIME (NOT ORD) 14.8 SEC (12.0-14.5)
[2016-08-26 14:55] LABS: PARTIAL THROMBO TIME 42.9 SEC (22.5-37.2)
[2016-08-26 20:33] LABS: INTERNATIONAL NORMAL RATI 1.2 UNITS (-); PROTIME (NOT ORD) 15.2 SEC (12.0-14.5)
[2016-08-26 20:41] LABS: PARTIAL THROMBO TIME 114.8 SEC (22.5-37.2)
[2016-08-27 04:22] LABS: BASOPHILS 0.1 %; BASOPHILS ABSOLUTE 0.02 10/3/uL (0.0-0.16); EOSINOPHILS 0.5 %; HEMATOCRIT 22.1 % (36.0-48.0); HEMOGLOBIN 7.1 g/dL (12.0-16.0); IMMATURE GRANULOCYTES 0.8 %; IMMATURE GRANULOCYTES ABSOLUTE 0.15 10/3/uL (0.0-0.11); LYMPHOCYTES ABSOLUTE 1.65 10/3/uL (0.67-4.30); MEAN CORPUS HGB CONC 32.1 g/dL (32.0-36.0); MEAN CORPUSCULAR HEMOGLOB 28.6 pg (26.0-34.0); MEAN CORPUSCULAR VOLUME 89.1 fL (80-100); MEAN PLATELET VOLUME 10.5 fL (9.2-13.0); MONOCYTES 9.1 %; MONOCYTES ABSOLUTE 1.68 10/3/uL (0.21-1.20); NEUTROPHILS 80.5 %; NEUTROPHILS ABSOLUTE 14.78 10/3/uL (2.02-8.40); NUCLEATED RED BLOOD CELLS 1.7 /100WBC (0-0); PLATELET COUNT 197 10/3/uL (150-400); RBC DISTRIBUTION WIDTH 17.4 % (12.0-16.0); RED CELL COUNT 2.48 10/6/uL (4.0-5.6); WHITE BLOOD CELLS 18.4 10/3/uL (4.5-10.5)
[2016-08-27 04:23] LABS: MANUAL DIFF NO %
[2016-08-27 04:27] LABS: ALBUMIN 2.8 G/DL (3.5-5.0); CALCIUM, SERUM 7.2 MG/DL (8.5-10.4); CHLORIDE, SERUM 103 MMOL/L (96-112); GLUCOSE, SERUM 208 MG/DL (60-99); POTASSIUM, SERUM 4.3 MMOL/L (3.5-5.3); SODIUM, SERUM 138 MMOL/L (135-148)
[2016-08-27 04:28] LABS: BUN (BLOOD UREA NITROGEN) 34 MG/DL (6-23); CO2 (CARBON DIOXIDE) 24 MMOL/L (24-34); CREATININE 3.52 MG/DL (0.55-1.02); GFR AFRICAN AMERICAN 16 ML/MIN (>=60); GFR NON AFRICAN AMERICAN 14 ML/MIN (>=60); PHOSPHORUS, SERUM 2.7 MG/DL (2.5-4.5)
[2016-08-27 04:41] LABS: PARTIAL THROMBO TIME > 150.0 SEC (22.5-37.2)
[2016-08-28 03:54] LABS: ALBUMIN 2.6 G/DL (3.5-5.0); CHLORIDE, SERUM 101 MMOL/L (96-112); CO2 (CARBON DIOXIDE) 25 MMOL/L (24-34); CREATININE 3.78 MG/DL (0.55-1.02); GFR AFRICAN AMERICAN 14 ML/MIN (>=60); GFR NON AFRICAN AMERICAN 12 ML/MIN (>=60); GLUCOSE, SERUM 218 MG/DL (60-99); PHOSPHORUS, SERUM 2.5 MG/DL (2.5-4.5); POTASSIUM, SERUM 4.5 MMOL/L (3.5-5.3); SODIUM, SERUM 138 MMOL/L (135-148)
[2016-08-28 03:56] LABS: BUN (BLOOD UREA NITROGEN) 48 MG/DL (6-23); CALCIUM, SERUM 6.3 MG/DL (8.5-10.4)
[2016-08-28 06:53] LABS: BASOPHILS 0.1 %; BASOPHILS ABSOLUTE 0.02 10/3/uL (0.0-0.16); EOSINOPHILS 0.9 %; EOSINOPHILS ABSOLUTE 0.15 10/3/uL (0.0-0.53); HEMATOCRIT 21.5 % (36.0-48.0); IMMATURE GRANULOCYTES 0.9 %; IMMATURE GRANULOCYTES ABSOLUTE 0.15 10/3/uL (0.0-0.11); LYMPHOCYTES ABSOLUTE 1.94 10/3/uL (0.67-4.30); MEAN CORPUS HGB CONC 31.6 g/dL (32.0-36.0); MEAN CORPUSCULAR HEMOGLOB 28.3 pg (26.0-34.0); MEAN CORPUSCULAR VOLUME 89.6 fL (80-100); MEAN PLATELET VOLUME 10.5 fL (9.2-13.0); MONOCYTES 6.5 %; MONOCYTES ABSOLUTE 1.14 10/3/uL (0.21-1.20); NEUTROPHILS 80.6 %; NEUTROPHILS ABSOLUTE 14.18 10/3/uL (2.02-8.40); NUCLEATED RED BLOOD CELLS 1.5 /100WBC (0-0); PLATELET COUNT 213 10/3/uL (150-400); RBC DISTRIBUTION WIDTH 17.2 % (12.0-16.0); WHITE BLOOD CELLS 17.6 10/3/uL (4.5-10.5)
[2016-08-28 07:06] LABS: HEMOGLOBIN 6.8 g/dL (12.0-16.0)
[2016-08-28 07:07] LABS: MANUAL DIFF NO %
[2016-08-29 03:15] LABS: BASOPHILS 0 %; BASOPHILS ABSOLUTE 0.01 10/3/uL (0.0-0.16); EOSINOPHILS 0.3 %; EOSINOPHILS ABSOLUTE 0.06 10/3/uL (0.0-0.53); HEMATOCRIT 26.2 % (36.0-48.0); HEMOGLOBIN 8.4 g/dL (12.0-16.0); IMMATURE GRANULOCYTES 0.9 %; IMMATURE GRANULOCYTES ABSOLUTE 0.19 10/3/uL (0.0-0.11); LYMPHOCYTES 10.2 %; LYMPHOCYTES ABSOLUTE 2.04 10/3/uL (0.67-4.30); MANUAL DIFF NO %; MEAN CORPUS HGB CONC 32.1 g/dL (32.0-36.0); MEAN CORPUSCULAR HEMOGLOB 28.8 pg (26.0-34.0); MEAN CORPUSCULAR VOLUME 89.7 fL (80-100); MEAN PLATELET VOLUME 10.8 fL (9.2-13.0); MONOCYTES 5.8 %; MONOCYTES ABSOLUTE 1.17 10/3/uL (0.21-1.20); NEUTROPHILS 82.8 %; NEUTROPHILS ABSOLUTE 16.57 10/3/uL (2.02-8.40); PLATELET COUNT 263 10/3/uL (150-400); RBC DISTRIBUTION WIDTH 17.1 % (12.0-16.0); RED CELL COUNT 2.92 10/6/uL (4.0-5.6)
[2016-08-29 03:22] LABS: INTERNATIONAL NORMAL RATI 1.2 UNITS (-); PROTIME (NOT ORD) 15.3 SEC (12.0-14.5)
[2016-08-29 03:27] LABS: CHLORIDE, SERUM 102 MMOL/L (96-112); CO2 (CARBON DIOXIDE) 24 MMOL/L (24-34); CREATININE 3.77 MG/DL (0.55-1.02); GFR AFRICAN AMERICAN 14 ML/MIN (>=60); GFR NON AFRICAN AMERICAN 12 ML/MIN (>=60); POTASSIUM, SERUM 4.9 MMOL/L (3.5-5.3); SODIUM, SERUM 136 MMOL/L (135-148)
[2016-08-29 03:28] LABS: BUN (BLOOD UREA NITROGEN) 60 MG/DL (6-23); CALCIUM, SERUM 6.5 MG/DL (8.5-10.4); GLUCOSE, SERUM 128 MG/DL (60-99)
[2016-08-29 05:02] LABS: PARTIAL THROMBO TIME 112.5 SEC (22.5-37.2)
[2016-08-29 05:03] LABS: ALBUMIN 2.8 G/DL (3.5-5.0); DIRECT BILIRUBIN < 0.1 MG/DL (0.0-0.4); INDIRECT BILIRUBIN(NOT ORDER) 0.2 MG/DL (0.1-0.9); SGOT(AST) 15 U/L (5-40); SGPT(ALT) 20 U/L (5-65); TOTAL BILIRUBIN 0.3 MG/DL (0-1.2); TOTAL PROTEIN 6.2 G/DL (6.0-8.5)
[2016-08-29 05:04] LABS: ALKALINE PHOSPHATASE 95 U/L (45-117)
[2016-08-30 04:48] LABS: BASOPHILS 0.1 %; BASOPHILS ABSOLUTE 0.02 10/3/uL (0.0-0.16); EOSINOPHILS 0.5 %; EOSINOPHILS ABSOLUTE 0.08 10/3/uL (0.0-0.53); HEMATOCRIT 24.7 % (36.0-48.0); HEMOGLOBIN 8.1 g/dL (12.0-16.0); IMMATURE GRANULOCYTES 0.8 %; IMMATURE GRANULOCYTES ABSOLUTE 0.12 10/3/uL (0.0-0.11); LYMPHOCYTES 10.5 %; LYMPHOCYTES ABSOLUTE 1.68 10/3/uL (0.67-4.30); MANUAL DIFF NO %; MEAN CORPUS HGB CONC 32.8 g/dL (32.0-36.0); MEAN CORPUSCULAR HEMOGLOB 29.1 pg (26.0-34.0); MEAN CORPUSCULAR VOLUME 88.8 fL (80-100); MEAN PLATELET VOLUME 10.7 fL (9.2-13.0); MONOCYTES 7.7 %; MONOCYTES ABSOLUTE 1.23 10/3/uL (0.21-1.20); NEUTROPHILS 80.4 %; PLATELET COUNT 266 10/3/uL (150-400); RBC DISTRIBUTION WIDTH 16.9 % (12.0-16.0); RED CELL COUNT 2.78 10/6/uL (4.0-5.6); WHITE BLOOD CELLS 15.9 10/3/uL (4.5-10.5)
[2016-08-30 04:54] LABS: INTERNATIONAL NORMAL RATI 1.2 UNITS (-)
[2016-08-30 05:08] LABS: ALBUMIN 2.8 G/DL (3.5-5.0); ALKALINE PHOSPHATASE 97 U/L (45-117); CHLORIDE, SERUM 100 MMOL/L (96-112); CO2 (CARBON DIOXIDE) 24 MMOL/L (24-34); CREATININE 4.25 MG/DL (0.55-1.02); GFR AFRICAN AMERICAN 13 ML/MIN (>=60); GFR NON AFRICAN AMERICAN 11 ML/MIN (>=60); PHOSPHORUS, SERUM 3.1 MG/DL (2.5-4.5); POTASSIUM, SERUM 4.9 MMOL/L (3.5-5.3); SGOT(AST) 12 U/L (5-40); SGPT(ALT) 18 U/L (5-65); SODIUM, SERUM 135 MMOL/L (135-148); TOTAL BILIRUBIN 0.7 MG/DL (0-1.2)
[2016-08-30 05:09] LABS: BUN (BLOOD UREA NITROGEN) 72 MG/DL (6-23); CALCIUM, SERUM 6.5 MG/DL (8.5-10.4); DIRECT BILIRUBIN < 0.1 MG/DL (0.0-0.4); GLUCOSE, SERUM 196 MG/DL (60-99); INDIRECT BILIRUBIN(NOT ORDER) 0.6 MG/DL (0.1-0.9)
[2016-08-30 05:27] LABS: PARTIAL THROMBO TIME 32.2 SEC (22.5-37.2)
[2016-08-30 14:55] LABS: ASCORBIC ACID (UR NOT ORDER) NEG (NEG); BILIRUBIN, URINE NEGATIVE (NEG); KETONE, URINE NEGATIVE (NEG); LEUKOCYTE ESTERASE(NOT OR LARGE (NEG); WBC (NOT ORDERED) (RFLEX) 122 (0-5)
[2016-08-31 04:16] LABS: BASOPHILS 0.1 %; BASOPHILS ABSOLUTE 0.01 10/3/uL (0.0-0.16); EOSINOPHILS 0.4 %; EOSINOPHILS ABSOLUTE 0.06 10/3/uL (0.0-0.53); HEMATOCRIT 24.3 % (36.0-48.0); HEMOGLOBIN 7.9 g/dL (12.0-16.0); IMMATURE GRANULOCYTES 0.8 %; IMMATURE GRANULOCYTES ABSOLUTE 0.12 10/3/uL (0.0-0.11); LYMPHOCYTES 9.3 %; LYMPHOCYTES ABSOLUTE 1.44 10/3/uL (0.67-4.30); MEAN CORPUS HGB CONC 32.5 g/dL (32.0-36.0); MEAN CORPUSCULAR HEMOGLOB 28.9 pg (26.0-34.0); MEAN PLATELET VOLUME 10.4 fL (9.2-13.0); MONOCYTES 6.9 %; MONOCYTES ABSOLUTE 1.07 10/3/uL (0.21-1.20); NEUTROPHILS 82.5 %; NEUTROPHILS ABSOLUTE 12.71 10/3/uL (2.02-8.40); PLATELET COUNT 264 10/3/uL (150-400); RED CELL COUNT 2.73 10/6/uL (4.0-5.6); WHITE BLOOD CELLS 15.4 10/3/uL (4.5-10.5)
[2016-08-31 04:21] LABS: ALBUMIN 2.9 G/DL (3.5-5.0); CHLORIDE, SERUM 99 MMOL/L (96-112); CO2 (CARBON DIOXIDE) 28 MMOL/L (24-34); CREATININE 4.24 MG/DL (0.55-1.02); GFR AFRICAN AMERICAN 13 ML/MIN (>=60); GFR NON AFRICAN AMERICAN 11 ML/MIN (>=60); POTASSIUM, SERUM 4.7 MMOL/L (3.5-5.3); SODIUM, SERUM 137 MMOL/L (135-148)
[2016-08-31 04:25] LABS: BUN (BLOOD UREA NITROGEN) 86 MG/DL (6-23); GLUCOSE, SERUM 138 MG/DL (60-99); PHOSPHORUS, SERUM 4.2 MG/DL (2.5-4.5)
[2016-08-31 04:26] LABS: CALCIUM, SERUM 6.5 MG/DL (8.5-10.4)
[2016-08-31 04:29] LABS: MANUAL DIFF NO %
[2016-08-31 04:41] LABS: INTERNATIONAL NORMAL RATI 1.1 UNITS (-); PROTIME (NOT ORD) 14.5 SEC (12.0-14.5)
[2016-09-01 09:01] LABS: BASOPHILS 0.1 %; BASOPHILS ABSOLUTE 0.01 10/3/uL (0.0-0.16); EOSINOPHILS 0.9 %; HEMATOCRIT 27.3 % (36.0-48.0); HEMOGLOBIN 8.9 g/dL (12.0-16.0); IMMATURE GRANULOCYTES 0.8 %; IMMATURE GRANULOCYTES ABSOLUTE 0.09 10/3/uL (0.0-0.11); LYMPHOCYTES 11.2 %; LYMPHOCYTES ABSOLUTE 1.28 10/3/uL (0.67-4.30); MANUAL DIFF NO %; MEAN CORPUS HGB CONC 32.6 g/dL (32.0-36.0); MEAN CORPUSCULAR VOLUME 88.9 fL (80-100); MEAN PLATELET VOLUME 10.5 fL (9.2-13.0); MONOCYTES ABSOLUTE 0.92 10/3/uL (0.21-1.20); NEUTROPHILS ABSOLUTE 9.03 10/3/uL (2.02-8.40); PLATELET COUNT 250 10/3/uL (150-400); RBC DISTRIBUTION WIDTH 16.9 % (12.0-16.0); RED CELL COUNT 3.07 10/6/uL (4.0-5.6); WHITE BLOOD CELLS 11.4 10/3/uL (4.5-10.5)
[2016-09-01 09:14] LABS: ALBUMIN 2.9 G/DL (3.5-5.0); CHLORIDE, SERUM 101 MMOL/L (96-112); CO2 (CARBON DIOXIDE) 24 MMOL/L (24-34); CREATININE 4.31 MG/DL (0.55-1.02); GFR AFRICAN AMERICAN 12 ML/MIN (>=60); GFR NON AFRICAN AMERICAN 11 ML/MIN (>=60); GLUCOSE, SERUM 133 MG/DL (60-99); POTASSIUM, SERUM 4.7 MMOL/L (3.5-5.3); SODIUM, SERUM 136 MMOL/L (135-148)
[2016-09-01 09:15] LABS: BUN (BLOOD UREA NITROGEN) 96 MG/DL (6-23); CALCIUM, SERUM 6.5 MG/DL (8.5-10.4); PHOSPHORUS, SERUM 5.3 MG/DL (2.5-4.5)
[2016-09-02 03:40] LABS: BASOPHILS 0.3 %; BASOPHILS ABSOLUTE 0.03 10/3/uL (0.0-0.16); EOSINOPHILS 0.8 %; EOSINOPHILS ABSOLUTE 0.08 10/3/uL (0.0-0.53); HEMOGLOBIN 8.2 g/dL (12.0-16.0); IMMATURE GRANULOCYTES 1.5 %; IMMATURE GRANULOCYTES ABSOLUTE 0.16 10/3/uL (0.0-0.11); LYMPHOCYTES 7.1 %; LYMPHOCYTES ABSOLUTE 0.74 10/3/uL (0.67-4.30); MEAN CORPUS HGB CONC 31.5 g/dL (32.0-36.0); MEAN CORPUSCULAR VOLUME 88.7 fL (80-100); MONOCYTES 7.8 %; MONOCYTES ABSOLUTE 0.82 10/3/uL (0.21-1.20); NEUTROPHILS 82.5 %; NEUTROPHILS ABSOLUTE 8.62 10/3/uL (2.02-8.40); NUCLEATED RED BLOOD CELLS 0.5 /100WBC (0-0); PLATELET COUNT 217 10/3/uL (150-400); RED CELL COUNT 2.93 10/6/uL (4.0-5.6); WHITE BLOOD CELLS 10.5 10/3/uL (4.5-10.5)
[2016-09-02 03:41] LABS: MANUAL DIFF NO %
[2016-09-03 05:06] LABS: BASOPHILS 0.1 %; BASOPHILS ABSOLUTE 0.01 10/3/uL (0.0-0.16); EOSINOPHILS 1.3 %; EOSINOPHILS ABSOLUTE 0.14 10/3/uL (0.0-0.53); HEMOGLOBIN 8.2 g/dL (12.0-16.0); IMMATURE GRANULOCYTES 0.4 %; IMMATURE GRANULOCYTES ABSOLUTE 0.04 10/3/uL (0.0-0.11); LYMPHOCYTES 10.3 %; LYMPHOCYTES ABSOLUTE 1.09 10/3/uL (0.67-4.30); MEAN CORPUS HGB CONC 31.5 g/dL (32.0-36.0); MEAN CORPUSCULAR VOLUME 88.7 fL (80-100); MEAN PLATELET VOLUME 10.6 fL (9.2-13.0); MONOCYTES 8.1 %; MONOCYTES ABSOLUTE 0.86 10/3/uL (0.21-1.20); NEUTROPHILS 79.8 %; NEUTROPHILS ABSOLUTE 8.48 10/3/uL (2.02-8.40); PLATELET COUNT 217 10/3/uL (150-400); RBC DISTRIBUTION WIDTH 16.3 % (12.0-16.0); RED CELL COUNT 2.93 10/6/uL (4.0-5.6); WHITE BLOOD CELLS 10.6 10/3/uL (4.5-10.5)
[2016-09-03 05:07] LABS: MANUAL DIFF NO %
[2016-09-04 05:41] LABS: HEMATOCRIT 26.2 % (36.0-48.0); HEMOGLOBIN 8.2 g/dL (12.0-16.0); MEAN CORPUS HGB CONC 31.3 g/dL (32.0-36.0); MEAN CORPUSCULAR VOLUME 89.4 fL (80-100); MEAN PLATELET VOLUME 10.2 fL (9.2-13.0); PLATELET COUNT 248 10/3/uL (150-400); RBC DISTRIBUTION WIDTH 16.2 % (12.0-16.0); RED CELL COUNT 2.93 10/6/uL (4.0-5.6); WHITE BLOOD CELLS 10.1 10/3/uL (4.5-10.5)
[2016-09-04 05:43] LABS: MANUAL DIFF YES %
[2016-09-04 05:47] LABS: ALBUMIN 2.7 G/DL (3.5-5.0); CHLORIDE, SERUM 101 MMOL/L (96-112); CO2 (CARBON DIOXIDE) 23 MMOL/L (24-34); CREATININE 4.24 MG/DL (0.55-1.02); GFR AFRICAN AMERICAN 13 ML/MIN (>=60); GFR NON AFRICAN AMERICAN 11 ML/MIN (>=60); GLUCOSE, SERUM 146 MG/DL (60-99); PHOSPHORUS, SERUM 5.4 MG/DL (2.5-4.5); POTASSIUM, SERUM 4.5 MMOL/L (3.5-5.3); SODIUM, SERUM 137 MMOL/L (135-148)
[2016-09-04 05:48] LABS: BUN (BLOOD UREA NITROGEN) 86 MG/DL (6-23); CALCIUM, SERUM 6.6 MG/DL (8.5-10.4)
[2016-09-04 06:05] LABS: EOSINOPHILS 2 %; LYMPHOCYTES 9 %; LYMPHOCYTES ABSOLUTE (CALC) 0.91 10/3/uL (0.67-4.30); MONOCYTES 4 %; NEUTROPHILS ABSOLUTE (CALC) 8.59 10/3/uL (2.02-8.40); SEGMENTED NEUTROPHIL (0) 85 %; TOTAL NUCLEATED CELLS 100
[2016-09-04 06:06] LABS: PLATELET ESTIMATE ADQ (ADEQUATE); RBC MORPHOLOGY NORM (NORMAL)
[2016-09-04 11:27] LABS: BASOPHILS 0.1 %; BASOPHILS ABSOLUTE 0.01 10/3/uL (0.0-0.16); EOSINOPHILS 2.4 %; EOSINOPHILS ABSOLUTE 0.24 10/3/uL (0.0-0.53); HEMATOCRIT 26.2 % (36.0-48.0); HEMOGLOBIN 8.4 g/dL (12.0-16.0); IMMATURE GRANULOCYTES 0.5 %; IMMATURE GRANULOCYTES ABSOLUTE 0.05 10/3/uL (0.0-0.11); LYMPHOCYTES ABSOLUTE 1.19 10/3/uL (0.67-4.30); MEAN CORPUS HGB CONC 32.1 g/dL (32.0-36.0); MEAN CORPUSCULAR HEMOGLOB 28.5 pg (26.0-34.0); MEAN CORPUSCULAR VOLUME 88.8 fL (80-100); MEAN PLATELET VOLUME 9.7 fL (9.2-13.0); MONOCYTES 7.7 %; MONOCYTES ABSOLUTE 0.76 10/3/uL (0.21-1.20); NEUTROPHILS 77.3 %; NEUTROPHILS ABSOLUTE 7.68 10/3/uL (2.02-8.40); PLATELET COUNT 248 10/3/uL (150-400); RBC DISTRIBUTION WIDTH 15.9 % (12.0-16.0); RED CELL COUNT 2.95 10/6/uL (4.0-5.6); WHITE BLOOD CELLS 9.9 10/3/uL (4.5-10.5)
[2016-09-04 11:28] LABS: MANUAL DIFF NO %
[2016-09-04 12:52] LABS: INTERNATIONAL NORMAL RATI 1.2 UNITS (-); PARTIAL THROMBO TIME 28.7 SEC (22.5-37.2); PROTIME (NOT ORD) 14.9 SEC (12.0-14.5)
[2016-09-05 13:14] LABS: CHLORIDE, SERUM 101 MMOL/L (96-112); CO2 (CARBON DIOXIDE) 26 MMOL/L (24-34); CREATININE 4.12 MG/DL (0.55-1.02); GFR AFRICAN AMERICAN 13 ML/MIN (>=60); GFR NON AFRICAN AMERICAN 11 ML/MIN (>=60); POTASSIUM, SERUM 4.4 MMOL/L (3.5-5.3); SODIUM, SERUM 138 MMOL/L (135-148)
[2016-09-05 13:15] LABS: BUN (BLOOD UREA NITROGEN) 93 MG/DL (6-23); CALCIUM, SERUM 6.5 MG/DL (8.5-10.4); GLUCOSE, SERUM 105 MG/DL (60-99)
[2016-09-05 13:42] LABS: BASOPHILS 0.1 %; BASOPHILS ABSOLUTE 0.01 10/3/uL (0.0-0.16); EOSINOPHILS 1.1 %; EOSINOPHILS ABSOLUTE 0.12 10/3/uL (0.0-0.53); HEMATOCRIT 27.2 % (36.0-48.0); HEMOGLOBIN 8.7 g/dL (12.0-16.0); IMMATURE GRANULOCYTES 0.4 %; IMMATURE GRANULOCYTES ABSOLUTE 0.05 10/3/uL (0.0-0.11); LYMPHOCYTES 10.7 %; MEAN CORPUSCULAR VOLUME 87.5 fL (80-100); MEAN PLATELET VOLUME 10.7 fL (9.2-13.0); MONOCYTES 6.9 %; MONOCYTES ABSOLUTE 0.77 10/3/uL (0.21-1.20); NEUTROPHILS 80.8 %; NEUTROPHILS ABSOLUTE 9.07 10/3/uL (2.02-8.40); PLATELET COUNT 286 10/3/uL (150-400); RBC DISTRIBUTION WIDTH 16.1 % (12.0-16.0); RED CELL COUNT 3.11 10/6/uL (4.0-5.6); WHITE BLOOD CELLS 11.2 10/3/uL (4.5-10.5)
[2016-09-05 13:43] LABS: MANUAL DIFF NO %
[2016-09-06 06:31] LABS: BASOPHILS 0.2 %; BASOPHILS ABSOLUTE 0.02 10/3/uL (0.0-0.16); EOSINOPHILS 2.3 %; EOSINOPHILS ABSOLUTE 0.21 10/3/uL (0.0-0.53); HEMOGLOBIN 8.3 g/dL (12.0-16.0); IMMATURE GRANULOCYTES 0.3 %; IMMATURE GRANULOCYTES ABSOLUTE 0.03 10/3/uL (0.0-0.11); LYMPHOCYTES 13.9 %; LYMPHOCYTES ABSOLUTE 1.25 10/3/uL (0.67-4.30); MEAN CORPUS HGB CONC 31.9 g/dL (32.0-36.0); MEAN CORPUSCULAR HEMOGLOB 28.2 pg (26.0-34.0); MEAN CORPUSCULAR VOLUME 88.4 fL (80-100); MEAN PLATELET VOLUME 10.3 fL (9.2-13.0); MONOCYTES 6.3 %; MONOCYTES ABSOLUTE 0.57 10/3/uL (0.21-1.20); NEUTROPHILS ABSOLUTE 6.91 10/3/uL (2.02-8.40); PLATELET COUNT 269 10/3/uL (150-400); RBC DISTRIBUTION WIDTH 15.9 % (12.0-16.0); RED CELL COUNT 2.94 10/6/uL (4.0-5.6)
[2016-09-06 06:32] LABS: MANUAL DIFF NO %
[2016-09-06 06:42] LABS: BUN (BLOOD UREA NITROGEN) 93 MG/DL (6-23); CHLORIDE, SERUM 102 MMOL/L (96-112); CO2 (CARBON DIOXIDE) 25 MMOL/L (24-34); CREATININE 3.93 MG/DL (0.55-1.02); GFR AFRICAN AMERICAN 14 ML/MIN (>=60); GFR NON AFRICAN AMERICAN 12 ML/MIN (>=60); GLUCOSE, SERUM 90 MG/DL (60-99); POTASSIUM, SERUM 4.8 MMOL/L (3.5-5.3); SODIUM, SERUM 137 MMOL/L (135-148)
[2016-09-06 06:43] LABS: CALCIUM, SERUM 6.5 MG/DL (8.5-10.4)
[2016-09-07 03:18] LABS: BASOPHILS 0.1 %; BASOPHILS ABSOLUTE 0.01 10/3/uL (0.0-0.16); EOSINOPHILS 0.2 %; EOSINOPHILS ABSOLUTE 0.02 10/3/uL (0.0-0.53); HEMATOCRIT 26.7 % (36.0-48.0); HEMOGLOBIN 8.6 g/dL (12.0-16.0); IMMATURE GRANULOCYTES 0.2 %; IMMATURE GRANULOCYTES ABSOLUTE 0.02 10/3/uL (0.0-0.11); LYMPHOCYTES ABSOLUTE 0.66 10/3/uL (0.67-4.30); MEAN CORPUS HGB CONC 32.2 g/dL (32.0-36.0); MEAN CORPUSCULAR HEMOGLOB 28.3 pg (26.0-34.0); MEAN CORPUSCULAR VOLUME 87.8 fL (80-100); MEAN PLATELET VOLUME 10.1 fL (9.2-13.0); MONOCYTES 5.1 %; MONOCYTES ABSOLUTE 0.42 10/3/uL (0.21-1.20); NEUTROPHILS 86.4 %; NEUTROPHILS ABSOLUTE 7.16 10/3/uL (2.02-8.40); PLATELET COUNT 276 10/3/uL (150-400); RBC DISTRIBUTION WIDTH 15.8 % (12.0-16.0); RED CELL COUNT 3.04 10/6/uL (4.0-5.6); WHITE BLOOD CELLS 8.3 10/3/uL (4.5-10.5)
[2016-09-07 03:19] LABS: MANUAL DIFF NO %
[2016-09-07 03:33] LABS: BUN (BLOOD UREA NITROGEN) 94 MG/DL (6-23); CHLORIDE, SERUM 103 MMOL/L (96-112); CO2 (CARBON DIOXIDE) 24 MMOL/L (24-34); CREATININE 3.67 MG/DL (0.55-1.02); GFR AFRICAN AMERICAN 15 ML/MIN (>=60); GFR NON AFRICAN AMERICAN 13 ML/MIN (>=60); POTASSIUM, SERUM 5.2 MMOL/L (3.5-5.3); SODIUM, SERUM 137 MMOL/L (135-148)
[2016-09-07 03:34] LABS: CALCIUM, SERUM 6.5 MG/DL (8.5-10.4); GLUCOSE, SERUM 132 MG/DL (60-99)
[2016-09-08 03:39] LABS: BASOPHILS 0 %; EOSINOPHILS 0.2 %; EOSINOPHILS ABSOLUTE 0.02 10/3/uL (0.0-0.53); HEMATOCRIT 24.8 % (36.0-48.0); IMMATURE GRANULOCYTES 0.2 %; IMMATURE GRANULOCYTES ABSOLUTE 0.02 10/3/uL (0.0-0.11); LYMPHOCYTES 7.1 %; MANUAL DIFF NO %; MEAN CORPUS HGB CONC 32.3 g/dL (32.0-36.0); MEAN CORPUSCULAR HEMOGLOB 28.2 pg (26.0-34.0); MEAN CORPUSCULAR VOLUME 87.3 fL (80-100); MEAN PLATELET VOLUME 10.2 fL (9.2-13.0); MONOCYTES 6.4 %; MONOCYTES ABSOLUTE 0.54 10/3/uL (0.21-1.20); NEUTROPHILS 86.1 %; NEUTROPHILS ABSOLUTE 7.28 10/3/uL (2.02-8.40); PLATELET COUNT 263 10/3/uL (150-400); RBC DISTRIBUTION WIDTH 15.7 % (12.0-16.0); RED CELL COUNT 2.84 10/6/uL (4.0-5.6); WHITE BLOOD CELLS 8.5 10/3/uL (4.5-10.5)
[2016-09-08 03:45] LABS: INTERNATIONAL NORMAL RATI 1.3 UNITS (-)
[2016-09-08 03:53] LABS: ALBUMIN 2.5 G/DL (3.5-5.0); BUN (BLOOD UREA NITROGEN) 91 MG/DL (6-23); CHLORIDE, SERUM 103 MMOL/L (96-112); CO2 (CARBON DIOXIDE) 25 MMOL/L (24-34); CREATININE 3.49 MG/DL (0.55-1.02); GFR AFRICAN AMERICAN 16 ML/MIN (>=60); GFR NON AFRICAN AMERICAN 14 ML/MIN (>=60); GLUCOSE, SERUM 157 MG/DL (60-99); PHOSPHORUS, SERUM 4.8 MG/DL (2.5-4.5); POTASSIUM, SERUM 5.1 MMOL/L (3.5-5.3); SODIUM, SERUM 138 MMOL/L (135-148)
[2016-09-08 03:55] LABS: CALCIUM, SERUM 6.5 MG/DL (8.5-10.4)
[2016-09-09 04:50] LABS: ALBUMIN 2.5 G/DL (3.5-5.0); CHLORIDE, SERUM 104 MMOL/L (96-112); CO2 (CARBON DIOXIDE) 22 MMOL/L (24-34); GFR AFRICAN AMERICAN 16 ML/MIN (>=60); GFR NON AFRICAN AMERICAN 14 ML/MIN (>=60); GLUCOSE, SERUM 128 MG/DL (60-99); SODIUM, SERUM 139 MMOL/L (135-148)
[2016-09-09 04:51] LABS: BUN (BLOOD UREA NITROGEN) 86 MG/DL (6-23); CALCIUM, SERUM 6.1 MG/DL (8.5-10.4); POTASSIUM, SERUM 4.9 MMOL/L (3.5-5.3)
[2016-09-09 05:26] LABS: INTERNATIONAL NORMAL RATI 1.5 UNITS (-); PROTIME (NOT ORD) 18.3 SEC (12.0-14.5)
[2016-09-09 08:47] LABS: PARTIAL THROMBO TIME 137.3 SEC (22.5-37.2)
[2016-09-10 06:35] LABS: BASOPHILS 0.1 %; BASOPHILS ABSOLUTE 0.01 10/3/uL (0.0-0.16); EOSINOPHILS 1.2 %; EOSINOPHILS ABSOLUTE 0.09 10/3/uL (0.0-0.53); IMMATURE GRANULOCYTES 0.3 %; IMMATURE GRANULOCYTES ABSOLUTE 0.02 10/3/uL (0.0-0.11); LYMPHOCYTES 15.3 %; LYMPHOCYTES ABSOLUTE 1.16 10/3/uL (0.67-4.30); MEAN CORPUS HGB CONC 31.8 g/dL (32.0-36.0); MEAN CORPUSCULAR VOLUME 88.3 fL (80-100); MEAN PLATELET VOLUME 10.4 fL (9.2-13.0); MONOCYTES 8.7 %; MONOCYTES ABSOLUTE 0.66 10/3/uL (0.21-1.20); NEUTROPHILS 74.4 %; NEUTROPHILS ABSOLUTE 5.63 10/3/uL (2.02-8.40); PLATELET COUNT 262 10/3/uL (150-400); RBC DISTRIBUTION WIDTH 16.1 % (12.0-16.0); RED CELL COUNT 2.39 10/6/uL (4.0-5.6); WHITE BLOOD CELLS 7.6 10/3/uL (4.5-10.5)
[2016-09-10 06:37] LABS: INTERNATIONAL NORMAL RATI 2.1 UNITS (-)
[2016-09-10 06:38] LABS: PARTIAL THROMBO TIME 107.5 SEC (22.5-37.2)
[2016-09-10 06:39] LABS: PROTIME (NOT ORD) 23.3 SEC (12.0-14.5)
[2016-09-10 06:44] LABS: ALBUMIN 2.3 G/DL (3.5-5.0); CHLORIDE, SERUM 108 MMOL/L (96-112); CO2 (CARBON DIOXIDE) 21 MMOL/L (24-34); CREATININE 3.42 MG/DL (0.55-1.02); GFR AFRICAN AMERICAN 16 ML/MIN (>=60); GFR NON AFRICAN AMERICAN 14 ML/MIN (>=60); GLUCOSE, SERUM 111 MG/DL (60-99); PHOSPHORUS, SERUM 4.9 MG/DL (2.5-4.5); SODIUM, SERUM 140 MMOL/L (135-148)
[2016-09-10 06:46] LABS: BUN (BLOOD UREA NITROGEN) 80 MG/DL (6-23); CALCIUM, SERUM 5.7 MG/DL (8.5-10.4); POTASSIUM, SERUM 4.7 MMOL/L (3.5-5.3)
[2016-09-10 06:51] LABS: HEMATOCRIT 21.1 % (36.0-48.0); HEMOGLOBIN 6.7 g/dL (12.0-16.0)
[2016-09-10 06:52] LABS: MANUAL DIFF NO %
[2016-09-10 16:19] LABS: ASCORBIC ACID (UR NOT ORDER) NEG (NEG); BILIRUBIN, URINE NEGATIVE (NEG); KETONE, URINE NEGATIVE (NEG); LEUKOCYTE ESTERASE(NOT OR NEG (NEG); WBC (NOT ORDERED) (RFLEX) 3 (0-5)
[2016-09-11 07:30] LABS: BASOPHILS 0.1 %; BASOPHILS ABSOLUTE 0.01 10/3/uL (0.0-0.16); EOSINOPHILS 0.7 %; EOSINOPHILS ABSOLUTE 0.06 10/3/uL (0.0-0.53); IMMATURE GRANULOCYTES 1.4 %; IMMATURE GRANULOCYTES ABSOLUTE 0.11 10/3/uL (0.0-0.11); LYMPHOCYTES 13.1 %; LYMPHOCYTES ABSOLUTE 1.05 10/3/uL (0.67-4.30); MEAN CORPUS HGB CONC 32.3 g/dL (32.0-36.0); MEAN CORPUSCULAR HEMOGLOB 28.1 pg (26.0-34.0); MEAN CORPUSCULAR VOLUME 86.8 fL (80-100); MEAN PLATELET VOLUME 9.9 fL (9.2-13.0); MONOCYTES 11.2 %; NEUTROPHILS 73.5 %; NEUTROPHILS ABSOLUTE 5.91 10/3/uL (2.02-8.40); PLATELET COUNT 241 10/3/uL (150-400); RBC DISTRIBUTION WIDTH 16.3 % (12.0-16.0)
[2016-09-11 07:32] LABS: RED CELL COUNT 3.42 10/6/uL (4.0-5.6)
[2016-09-11 07:33] LABS: HEMATOCRIT 29.7 % (36.0-48.0); HEMOGLOBIN 9.6 g/dL (12.0-16.0)
[2016-09-11 07:34] LABS: MANUAL DIFF NO %
[2016-09-11 07:35] LABS: INTERNATIONAL NORMAL RATI 2.4 UNITS (-); PROTIME (NOT ORD) 25.6 SEC (12.0-14.5)
[2016-09-11 07:39] LABS: ALBUMIN 2.9 G/DL (3.5-5.0); BUN (BLOOD UREA NITROGEN) 90 MG/DL (6-23); CALCIUM, SERUM 6.4 MG/DL (8.5-10.4); CHLORIDE, SERUM 107 MMOL/L (96-112); CO2 (CARBON DIOXIDE) 23 MMOL/L (24-34); CREATININE 3.86 MG/DL (0.55-1.02); GFR AFRICAN AMERICAN 14 ML/MIN (>=60); GFR NON AFRICAN AMERICAN 12 ML/MIN (>=60); GLUCOSE, SERUM 98 MG/DL (60-99); PHOSPHORUS, SERUM 4.8 MG/DL (2.5-4.5); POTASSIUM, SERUM 4.9 MMOL/L (3.5-5.3); SODIUM, SERUM 141 MMOL/L (135-148)
[2016-09-12 12:37] LABS: HEMATOCRIT 30.9 % (36.0-48.0); HEMOGLOBIN 9.8 g/dL (12.0-16.0); MANUAL DIFF YES %; MEAN CORPUS HGB CONC 31.7 g/dL (32.0-36.0); MEAN CORPUSCULAR HEMOGLOB 28.2 pg (26.0-34.0); MEAN CORPUSCULAR VOLUME 88.8 fL (80-100); MEAN PLATELET VOLUME 10.3 fL (9.2-13.0); PLATELET COUNT 263 10/3/uL (150-400); RBC DISTRIBUTION WIDTH 16.5 % (12.0-16.0); RED CELL COUNT 3.48 10/6/uL (4.0-5.6); WHITE BLOOD CELLS 10.9 10/3/uL (4.5-10.5)
[2016-09-12 12:53] LABS: ALBUMIN 2.9 G/DL (3.5-5.0); BUN (BLOOD UREA NITROGEN) 84 MG/DL (6-23); CALCIUM, SERUM 6.5 MG/DL (8.5-10.4); CHLORIDE, SERUM 109 MMOL/L (96-112); CO2 (CARBON DIOXIDE) 23 MMOL/L (24-34); CREATININE 3.26 MG/DL (0.55-1.02); GFR AFRICAN AMERICAN 17 ML/MIN (>=60); GFR NON AFRICAN AMERICAN 15 ML/MIN (>=60); GLUCOSE, SERUM 76 MG/DL (60-99); PHOSPHORUS, SERUM 4.1 MG/DL (2.5-4.5); POTASSIUM, SERUM 4.9 MMOL/L (3.5-5.3); SODIUM, SERUM 140 MMOL/L (135-148)
[2016-09-12 12:56] LABS: INTERNATIONAL NORMAL RATI 2.3 UNITS (-); PROTIME (NOT ORD) 24.7 SEC (12.0-14.5)
[2016-09-12 13:02] LABS: BAND NEUTROPHILS 1 %; IMMATURE GRANS ABSOLUTE (CALC) 0.11 10/3/uL (0.0-0.11); LYMPHOCYTES 7 %; LYMPHOCYTES ABSOLUTE (CALC) 0.76 10/3/uL (0.67-4.30); METAMYELOCYTES 1 %; MONOCYTES 4 %; MONOCYTES ABSOLUTE (CALC) 0.44 10/3/uL (0.21-1.20); NEUTROPHILS ABSOLUTE (CALC) 9.59 10/3/uL (2.02-8.40); PLATELET ESTIMATE ADQ (ADEQUATE); POLYCHROMASIA 1+ (2-5/OIF) (0-1/OIF); SEGMENTED NEUTROPHIL (0) 87 %; TOTAL NUCLEATED CELLS 100; TOXIC GRANULATION 1+
[2016-09-13 06:44] LABS: INTERNATIONAL NORMAL RATI 2.5 UNITS (-); PROTIME (NOT ORD) 26.6 SEC (12.0-14.5)
[2016-09-15 05:53] LABS: INTERNATIONAL NORMAL RATI 2.5 UNITS (-); PROTIME (NOT ORD) 26.5 SEC (12.0-14.5)
[2016-09-15 05:54] LABS: ALBUMIN 2.9 G/DL (3.5-5.0); CHLORIDE, SERUM 109 MMOL/L (96-112); CO2 (CARBON DIOXIDE) 23 MMOL/L (24-34); GLUCOSE, SERUM 75 MG/DL (60-99); POTASSIUM, SERUM 4.5 MMOL/L (3.5-5.3); SGOT(AST) 42 U/L (5-40); SGPT(ALT) 53 U/L (5-65); SODIUM, SERUM 142 MMOL/L (135-148); TOTAL BILIRUBIN 0.4 MG/DL (0-1.2); TOTAL PROTEIN 6.6 G/DL (6.0-8.5)
[2016-09-15 05:55] LABS: A/G RATIO 0.8 (0.7-1.9); ALKALINE PHOSPHATASE 239 U/L (45-117); BUN (BLOOD UREA NITROGEN) 68 MG/DL (6-23); CALCIUM, SERUM 6.3 MG/DL (8.5-10.4); CREATININE 2.57 MG/DL (0.55-1.02); GFR AFRICAN AMERICAN 23 ML/MIN (>=60); GFR NON AFRICAN AMERICAN 20 ML/MIN (>=60); GLOBULIN 3.7 G/DL (2.5-4.1)
[2016-10-06] MEDS ORDERED: ALBUTEROL0.083 % INH (21:40)
[2016-10-06] MEDS ORDERED: CLARIT10 PO (21:42)
[2016-10-06] MEDS ORDERED: LIPITOR40 PO (21:42)
[2016-10-06] MEDS ORDERED: TUMSROLL PO (21:43)
[2016-10-06] MEDS ORDERED: PLAVIX PO (21:44)
[2016-10-06] MEDS ORDERED: CEFT5 PO (21:44)
[2016-10-06] MEDS ORDERED: MIRALAX POWDER1 PKT PO (21:45)
[2016-10-06] MEDS ORDERED: DSS PO (21:45)
[2016-10-06] MEDS ORDERED: HYDROCORTISONE30 G1 TOP (21:48)
[2016-10-06] MEDS ORDERED: NYSTATPOW TOP (21:48)
[2016-10-06] MEDS ORDERED: REQUIP25 PO (21:50)
[2016-10-06] MEDS ORDERED: DEMA10T PO (21:51)
[2016-10-06] MEDS ORDERED: ZINC220C PO (21:52)
[2016-10-06] MEDS ORDERED: C1 PO (21:52)
[2016-10-06] MEDS ORDERED: V2 PO (21:53)
[2016-10-06] MEDS ORDERED: T PO (21:53)
[2016-10-06] MEDS ORDERED: AT25 PO (21:54)
[2016-10-06] MEDS ORDERED: SILTUSSIN100 MG/5 M PO (21:56)
[2016-10-06] MEDS ORDERED: SENTAB PO (21:57)
[2016-10-24] MEDS ORDERED: ASAB PO (13:59)
[2016-10-24] MEDS ORDERED: LIPITOR40 PO (13:59)
[2016-10-24] MEDS ORDERED: ALBUTEROL5 INH (13:59)
[2016-10-24] MEDS ORDERED: [UNRECOGNIZED DRUG - OTHER] IV (14:03)
[2016-10-24] MEDS ORDERED: ROCALTROL0.5 MCG PO (14:03)
[2016-10-24] MEDS ORDERED: COREG6 PO (14:06)
[2016-10-24] MEDS ORDERED: TUMSROLL PO (14:06)
[2016-10-24] MEDS ORDERED: DURICEF PO ×2 (14:07→14:08)
[2016-10-24] MEDS ORDERED: PLAVIX PO (14:08)
[2016-10-24] MEDS ORDERED: PEP20 PO (14:09)
[2016-10-24] MEDS ORDERED: BENTYL10 PO (14:09)
[2016-10-24] MEDS ORDERED: HUMALOG SC (14:10)
[2016-10-24] MEDS ORDERED: HUMALOG SQ (14:16)
[2016-10-24] MEDS ORDERED: HYDROCORTISONE CREAM TOP (14:18)
[2016-10-24] MEDS ORDERED: LEVEMFLXPN SC (14:20)
[2016-10-24] MEDS ORDERED: SINGULAIR1 PO (14:20)
[2016-10-24] MEDS ORDERED: PAX20 PO (14:23)
[2016-10-24] MEDS ORDERED: NYSTATPOW TOP (14:23)
[2016-10-24] MEDS ORDERED: P20 PO (14:25)
[2016-10-24] MEDS ORDERED: REQUIP25 PO (14:26)
[2016-10-24] MEDS ORDERED: PROGRAF1 PO (14:28)
[2016-10-24] MEDS ORDERED: DEMA10T PO (14:29)
[2016-10-24] MEDS ORDERED: C25 PO (14:32)
[2016-10-24] MEDS ORDERED: C2 PO (14:33)
[2016-10-24] MEDS ORDERED: ZINC220C PO (14:40)
[2016-10-24] MEDS ORDERED: VANCOCIN HCL125 MG PO ×4 (14:42→14:46)
[2016-10-24] MEDS ORDERED: [UNRECOGNIZED DRUG - OTHER] IRRIG ×2 (14:59→15:01)
== END 2016-09-15 16:11 | DRG 235 ==
LOC: ER 10:44 → 6NO 15:22 → CVICU 08-14 13:05 → 5NO 08-29 14:31
PROVIDERS: Emergency Medicine; Hospitalist; Internal Medicine; Internal Medicine Clinical Cardiac Electrophysiology; Internal Medicine Nephrology; Nurse Practitioner; Nurse Practitioner Family; Obstetrics & Gynecology; Surgery; Thoracic Surgery (Cardiothoracic Vascular Surgery)
PROC: 06BP0ZZ Excision of Right Saphenous Vein, Open Approach (ICD-10-PCS; 2016-08-14)
PROC: 5A1221Z Performance of Cardiac Output, Continuous (ICD-10-PCS; 2016-08-14)
PROC: 05783ZZ Dilation of Left Axillary Vein, Percutaneous Approach (ICD-10-PCS; 2016-08-14)
PROC: B246ZZ4 Ultrasonography of Right and Left Heart, Transesophageal (ICD-10-PCS; 2016-08-14)
PROC: 05763ZZ Dilation of Left Subclavian Vein, Percutaneous Approach (ICD-10-PCS; 2016-08-14)
PROC: 027V3ZZ Dilation of Superior Vena Cava, Percutaneous Approach (ICD-10-PCS; 2016-08-14)
PROC: 30233N1 Transfusion of Nonautologous Red Blood Cells into Peripheral Vein, Percutaneous Approach (ICD-10-PCS; 2016-08-14)
PROC: 021209W Bypass Coronary Artery, Three Arteries from Aorta with Autologous Venous Tissue, Open Approach (ICD-10-PCS; principal; 2016-08-14 09:30)
PROC: 0210099 Bypass Coronary Artery, One Artery from Left Internal Mammary with Autologous Venous Tissue, Open Approach (ICD-10-PCS; 2016-08-14 09:30)
PROC: 06HN33Z Insertion of Infusion Device into Left Femoral Vein, Percutaneous Approach (ICD-10-PCS; 2016-08-16)
PROC: 05743ZZ Dilation of Left Innominate Vein, Percutaneous Approach (ICD-10-PCS; 2016-08-16)
PROC: 05743ZZ Dilation of Left Innominate Vein, Percutaneous Approach (ICD-10-PCS; 2016-08-16)
PROC: B54CZZA Ultrasonography of Left Lower Extremity Veins, Guidance (ICD-10-PCS; 2016-08-16)
PROC: 05HN33Z Insertion of Infusion Device into Left Internal Jugular Vein, Percutaneous Approach (ICD-10-PCS; 2016-08-23)
PROC: B544ZZA Ultrasonography of Left Jugular Veins, Guidance (ICD-10-PCS; 2016-08-23)
PROC: B51NZZA Fluoroscopy of Left Upper Extremity Veins, Guidance (ICD-10-PCS; 2016-08-23)
PROC: 5A1D60Z (ICD-10-PCS; 2016-08-24)
PROC: 05H833Z Insertion of Infusion Device into Left Axillary Vein, Percutaneous Approach (ICD-10-PCS; 2016-08-31)
PROC: 06PY33Z Removal of Infusion Device from Lower Vein, Percutaneous Approach (ICD-10-PCS; 2016-09-01)
PROC: 02H633Z Insertion of Infusion Device into Right Atrium, Percutaneous Approach (ICD-10-PCS; 2016-09-14)
DX: I25.110 Atherosclerotic heart disease of native coronary artery with unstable angina pectoris (principal); N18.6 End stage renal disease; J96.01 Acute respiratory failure with hypoxia; N17.0 Acute kidney failure with tubular necrosis; R57.0 Cardiogenic shock; Z94.0 Kidney transplant status; I82.622 Acute embolism and thrombosis of deep veins of left upper extremity; D62 Acute posthemorrhagic anemia; I13.2 Hypertensive heart and chronic kidney disease with heart failure and with stage 5 chronic kidney disease, or end stage renal disease; I50.32 Chronic diastolic (congestive) heart failure; Z68.42 Body mass index [BMI] 45.0-49.9, adult; E11.22 Type 2 diabetes mellitus with diabetic chronic kidney disease; E66.01 Morbid (severe) obesity due to excess calories; D63.1 Anemia in chronic kidney disease; E78.2 Mixed hyperlipidemia; Z88.5 Allergy status to narcotic agent; Z79.899 Other long term (current) drug therapy; Z83.3 Family history of diabetes mellitus; Z82.49 Family history of ischemic heart disease and other diseases of the circulatory system; G47.33 Obstructive sleep apnea (adult) (pediatric); Z79.4 Long term (current) use of insulin; Z88.1 Allergy status to other antibiotic agents; Z87.891 Personal history of nicotine dependence; N99.0 Postprocedural (acute) (chronic) kidney failure; Z87.440 Personal history of urinary (tract) infections; I87.8 Other specified disorders of veins; I65.23 Occlusion and stenosis of bilateral carotid arteries; Z01.810 Encounter for preprocedural cardiovascular examination
CPT/HCPCS: 36011; 36415; 36558; 36561; 36569; 36569-52; 36589; 36600; 37248; 37249; 71010; 71020; 71250; 75820; 75860; 76775; 77001; 80048; 80053; 80069; 80074; 80076; 80197; 81001; 82150; 82272; 82330; 82533; 82565; 82607; 82728; 82746; 82803; 82805; 82947; 82962; 83036; 83540; 83550; 83615; 83690; 83735; 83880; 84100; 84132; 84145; 84295; 84439; 84443; 84484; 84703; 85014; 85018; 85025; 85049; 85347; 85384; 85390; 85576; 85610; 85730; 86850; 86900; 86901; 86920; 87077; 87086; 87186; 87389; 87641; 93005; 93308; 93312; 93320; 93325; 93880; 93971; 94002; 94640; 94660; 94770; 96374; 97110-GO; 97110-GP; 97116-GP; 97162-GP; 97164-GP; 97166-GO; 97168-GO; 97530-GO; 97530-GP; 97535-GO; 99291; A9270-GY; C1713; C1725; C1750; C1751; C1769; C1788; C1894; G0257; G8987-CK-GO; G8988-CK-GO; G8989-CK-GO; J0610; J0690; J0692; J0885; J1170; J1200; J1644; J1720; J1940; J2150; J2250; J2270; J2370; J2405; J2440; J2720; J2795; J2930; J3010; J3475; J3480; J7507; P9016; P9045; P9047; Q9967